=== PATIENT | male | born 1940 | race African-American/Black ===

== ENCOUNTER → 2018-09-26 | Outpatient (CLI) | payer MEDICARE ==
[~2018-09-26] MED LIST: ALBUTEROL2.5 MG/0.5; ASPIRIN325 MG PO; FAMOTIDINE20 MG PO; FUROSEMIDE40 MG PO; HYDROCODON-ACE1 EAC9 PO; K DUR10 MEQ PO; METOPROLOL TART25 MG PO; MINOCYCLINE HC100 M1 PO; PLAVIX75 MG PO; PRAVASTATIN SOD20 MG PO; TYLENOL WITH C1 EACH PO; XARELTO20 MG PO; ZESTRIL20 MG PO
--- NOTE | 2018-09-26 08:10 | Diagnostic Imaging Report ---
EXAMINATION: CHEST 2 VIEWS INDICATION: Dysphagia/cough. COMPARISON: None FINDINGS: TUBES and LINES: Left-sided pacemaker with single lead overlying the right ventricle. LUNGS: Lungs are well inflated. Mild patchy opacities at the right lung base. No evidence of pulmonary edema or lobar consolidation. PLEURA: No pleural effusion or pneumothorax. HEART AND MEDIASTINUM: The cardiomediastinal silhouette is moderately enlarged. BONES AND SOFT TISSUES: No acute osseous abnormality. Status post median sternotomy. UPPER ABDOMEN: No free air under the diaphragm. IMPRESSION: Mild patchy right basilar opacity, likely atelectasis. Pneumonia is possible in the appropriate clinical setting. Followup chest radiograph is suggested in 6-8 weeks to assess for resolution. Moderate cardiomegaly without pulmonary edema. Signed by: Dr. Joel Tracy MD on 09/26/2018 8:06 AM
--- NOTE | 2018-09-26 09:34 | Diagnostic Imaging Report ---
FLUOROSCOPIC BARIUM SWALLOW HISTORY: Dysphagia SURVEY MANAGER: Joel Tracy MD Comparison: Chest radiograph 09/26/2018. Procedure: Double contrast barium swallow was performed using thick and thin oral barium and effervescent crystals. Radiation Exposure: Fluoroscopy Time: 2.8 minute Radiation dose: 124.08 mGy DISCUSSION: Please refer to the same day chest radiograph for details of intrathoracic findings. ESOPHAGUS: Motility: Primarily primary and secondary contractions. Scattered tertiary contractions. Mucosa: There is a small upper esophageal outpouching at C7/T1 that changes configuration on different swallows. No definite ulcer or mass lesion. Distensibility: Normal. GASTROESOPHAGEAL JUNCTION: Small hiatal hernia. GASTROESOPHAGEAL REFLUX: Mild spontaneous gastroesophageal reflux. STOMACH: Normally distensible and demonstrates normal contours and mucosal pattern. DUODENUM/PROXIMAL SMALL BOWEL: Unremarkable. 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 The location is lower than expected for a Zenker diverticulum. An endoscopy is suggested for further evaluation. Small hiatal hernia. Mild spontaneous gastroesophageal reflux. Signed by: Dr. Joel Tracy MD on 09/26/2018 9:31 AM
== END ==
LOC: DX 06:36
PROVIDERS: ATTEND Internal Medicine Interventional Cardiology
DX: R05 Cough (principal); J18.9 Pneumonia, unspecified organism; R13.10 Dysphagia, unspecified
CPT/HCPCS: 71046; 74220

== ENCOUNTER → 2019-04-10 | Outpatient (CLI) | payer MEDICARE ==
--- NOTE | 2019-04-10 15:32 | Diagnostic Imaging Report ---
CT of the chest, without contrast. History: Lung cancer screening, asthma, shortness of breath. Comparison: Chest radiograph from 09/26/2018. Technique: Multidetector CT scanning of the chest was performed from the level of the apices to the upper abdomen without contrast. Coronal and sagittal multiplanar reformations were obtained. RADIATION DOSE: Total DLP: 560.98 mGy*cm Dose modulation, iterative reconstruction, and/or weight based adjustment of the mA/kV was utilized to reduce the radiation dose to as low as reasonably achievable. Findings: The visualized structures within the base of the neck demonstrate no significant abnormalities. There is a pacing device identified within the left chest wall with single transvenous lead extending to the right ventricle. The abdominal aorta is normal in course and caliber with atherosclerotic calcifications within its course and branch vessels including the coronary arteries. The heart is not enlarged. No abnormal pericardial fluid is present. Mild bilateral gynecomastia noted. There is no abnormal axillary, mediastinal, or hilar lymph node enlargement. The trachea and proximal airways are patent. Bandlike opacities noted within the left upper lobe suggestive of atelectasis/scarring. There is mild dependent density present bilaterally. There is no evidence for consolidation, pneumothorax, mass, suspicious nodule, or pleural effusion. Limited views of the upper abdomen demonstrate a partially visualized left adrenal thickening/hyperplasia. Post surgical changes from median sternotomy noted. There are degenerative changes of the visualized spine. The osseous structures demonstrate no evidence for acute fracture or destructive process. IMPRESSION: No acute intrathoracic process identified. Atherosclerosis and coronary artery disease. Signed by: Dr. Hector Rios MD on 04/10/2019 3:29 PM
--- NOTE | 2019-04-17 23:47 | Pulmonary Function Test ---
DATE OF STUDY: 04/10/2019 REFERRING PHYSICIAN: PULMONARY FUNCTION TEST SPIROMETRY: Spirometry demonstrates [id number] restriction. FEV1 was 1.25 L or 52% predicted and FVC was 1.80 L or 51% predicted in the setting of normal FEV1/FVC ratio. After bronchodilator administration, there was no statistically significant change in spirometry. I was unable to perform nitrogen washout method lung volumes nor diffusion capacity nor 6-minute walk distance due to the patient's physical limitations and difficult effort. SUMMARY: [id number] restriction. Consider repeat pulmonary function testing in future if the patient is better able to perform. MD JAKY Barnhart/LATISHA /[id number]
== END ==
LOC: CT 13:07
PROVIDERS: ATTEND Internal Medicine Critical Care Medicine
DX: J30.9 Allergic rhinitis, unspecified (principal); J45.909 Unspecified asthma, uncomplicated; N40.0 Benign prostatic hyperplasia without lower urinary tract symptoms; R60.0 Localized edema; R53.1 Weakness; E87.70 Fluid overload, unspecified; G47.31 Primary central sleep apnea; N62 Hypertrophy of breast; E66.9 Obesity, unspecified; G47.33 Obstructive sleep apnea (adult) (pediatric); K42.9 Umbilical hernia without obstruction or gangrene; Z87.891 Personal history of nicotine dependence
CPT/HCPCS: 71250; 94060; 94640; 94727; 94729

== ENCOUNTER 2019-06-06 10:34 | Inpatient (IN) | payer MEDICARE ==
[~2019-06-06] VITALS: Ht 175.3 cm; Wt 112.7 kg
[2019-06-06] VITALS (9 sets, daily range): BP systolic 99–148; BP diastolic 49–75
--- OUTSIDE RECORDS SUMMARY | 2019-06-06 10:38 | XMS REPORT ---
Author Author [facility] Address Unknown Phone Unavailable Care Team Providers Care Millwright Instructor Name Role Phone Sunshine MCFARLAND Unavailable Unavailable VINOD LAW Unavailable Unavailable Payers Payer Name Policy Type Policy Number Effective Date Expiration Date Problems This patient has no known problems. Allergies, Adverse Reactions, Alerts Allergy Name Allergy Type Status Severity Reaction(s) Onset Date Inactive Date Treating Clinician Comments No Known Allergies DA Active U 2019-04-13 00:00:00 No Known Allergies DA Active U 2018-12-21 00:00:00 No Known Allergies DA Active U 2018-01-02 00:00:00 Medications This patient has no known medications. Results Test Description Test Time Test Comments Text Results Atomic Results Result Comments BASIC METABOLIC PANEL 2019-05-28 11:01:00 SODIUM (test code=NA) 142 mmol/L 136-145 POTASSIUM (test code=K) 4.0 mmol/L 3.5-5.1 CHLORIDE (test code=CL) 107.0 mmol/L 98-107 CARBON DIOXIDE (test code=CO2) 25.0 mmol/L 21-32 ANION GAP (test code=GAP) 14.0 10-20 GLUCOSE (test code=GLU) 137 mg/dL 74-106 BLOOD UREA NITROGEN (test code=BUN) 16 mg/dL 7-18 GLOMERULAR FILTRATION RATE (test code=GFR) > 60 mL/min >=60 Estimated GFR by using Modified MDRD formula.Chronic kidney disease is defined as either kidney damageor GFR <60 mL/min/1.73 m2 for >3 months. CREATININE (test code=CREAT) 1.00 mg/dL 0.7-1.3 BUN/CREATININE RATIO (test code=BUN/CREA) 15.7 10-20 CALCIUM (test code=CA) 9.0 mg/dL 8.5-10.1 BASIC METABOLIC [id number] 10:55:00* Test Item Value Reference Range Comments SODIUM (test code=NA) 142 mmol/L 136-145 POTASSIUM (test code=K) 4.0 mmol/L 3.5-5.1 CHLORIDE (test code=CL) 107.0 mmol/L 98-107 CARBON DIOXIDE (test code=CO2) mmol/L 21-32 ANION GAP (test code=GAP) 10-20 GLUCOSE (test code=GLU) mg/dL 74-106 BLOOD UREA NITROGEN (test code=BUN) mg/dL 7-18 GLOMERULAR FILTRATION RATE (test code=GFR) mL/min >=60 CREATININE (test code=CREAT) mg/dL 0.7-1.3 BUN/CREATININE RATIO (test code=BUN/CREA) 10-20 CALCIUM (test code=CA) mg/dL 8.5-10.1 CBC W/O [id number] 10:26:00* Test Item Value Reference Range Comments WHITE BLOOD CELL (test code=WBC) 5.4 K/mm3 4.5-12.5 RED BLOOD CELL (test code=RBC) 4.16 mill/mm3 4.0-5.8 HEMOGLOBIN (test code=HGB) 11.0 gram/dL 13.0-17.5 HEMATOCRIT (test code=HCT) 36.1 % 42.0-52.0 MEAN CELL VOLUME (test code=MCV) 86.8 fL 80-98 MEAN CELL HGB (test code=MCH) 26.4 picogram 27.0-33.0 MEAN CELL HGB CONCETRATION (test code=MCHC) 30.5 gram/dL 33.0-36.0 RED CELL DISTRIBUTION WIDTH (test code=RDW) 16.0 % 11.6-16.2 PLATELET COUNT (test code=PLT) 168 K/mm3 150-450 MEAN PLATELET VOLUME (test code=MPV) 10.8 fL 6.7-11.0 BASIC METABOLIC [id number] 13:39:00* Test Item Value Reference Range Comments SODIUM (test code=NA) 139 mmol/L 136-145 POTASSIUM (test code=K) 4.2 mmol/L 3.5-5.1 CHLORIDE (test code=CL) 104.0 mmol/L 98-107 CARBON DIOXIDE (test code=CO2) 29.0 mmol/L 21-32 ANION GAP (test code=GAP) 10.2 10-20 GLUCOSE (test code=GLU) 80 mg/dL 74-106 BLOOD UREA NITROGEN (test code=BUN) 16 mg/dL 7-18 GLOMERULAR FILTRATION RATE (test code=GFR) > 60 mL/min >=60 Estimated GFR by using Modified MDRD formula.Chronic kidney disease is defined as either kidney damageor GFR <60 mL/min/1.73 m2 for >3 months. CREATININE (test code=CREAT) 1.10 mg/dL 0.7-1.3 BUN/CREATININE RATIO (test code=BUN/CREA) 14.5 10-20 CALCIUM (test code=CA) 9.4 mg/dL 8.5-10.1 PT IS A HARD STICK NOTIFIED [employer] LimitedLAB.05/26/19 1056 BASIC METABOLIC [id number] 13:31:00* Test Item Value Reference Range Comments SODIUM (test code=NA) 139 mmol/L 136-145 POTASSIUM (test code=K) 4.2 mmol/L 3.5-5.1 CHLORIDE (test code=CL) 104.0 mmol/L 98-107 CARBON DIOXIDE (test code=CO2) mmol/L 21-32 ANION GAP (test code=GAP) 10-20 GLUCOSE (test code=GLU) mg/dL 74-106 BLOOD UREA NITROGEN (test code=BUN) mg/dL 7-18 GLOMERULAR FILTRATION RATE (test code=GFR) mL/min >=60 CREATININE (test code=CREAT) mg/dL 0.7-1.3 BUN/CREATININE RATIO (test code=BUN/CREA) 10-20 CALCIUM (test code=CA) mg/dL 8.5-10.1 PT IS A HARD STICK NOTIFIED [employer].05/26/19 1056 CBC W/O DIFF 2019-05-26 12:49:00* Test Item Value Reference Range Comments WHITE BLOOD CELL (test code=WBC) 5.8 K/mm3 4.5-12.5 RED BLOOD CELL (test code=RBC) 4.78 mill/mm3 4.0-5.8 HEMOGLOBIN (test code=HGB) 12.3 gram/dL 13.0-17.5 HEMATOCRIT (test code=HCT) 41.3 % 42.0-52.0 MEAN CELL VOLUME (test code=MCV) 86.4 fL 80-98 MEAN CELL HGB (test code=MCH) 25.7 picogram 27.0-33.0 MEAN CELL HGB CONCETRATION (test code=MCHC) 29.8 gram/dL 33.0-36.0 RED CELL DISTRIBUTION WIDTH (test code=RDW) 16.0 % 11.6-16.2 PLATELET COUNT (test code=PLT) 214 K/mm3 150-450 MEAN PLATELET VOLUME (test code=MPV) 10.2 fL 6.7-11.0 PT IS A HARD STICK NOTIFIED NURSE [id number] V.LAB.AL05/26/19 1057 BASIC METABOLIC [id number] 10:27:00* Test Item Value Reference Range Comments SODIUM (test code=NA) 140 mmol/L 136-145 POTASSIUM (test code=K) 3.7 mmol/L 3.5-5.1 CHLORIDE (test code=CL) 107.0 mmol/L 98-107 CARBON DIOXIDE (test code=CO2) 27.0 mmol/L 21-32 ANION GAP (test code=GAP) 9.7 10-20 GLUCOSE (test code=GLU) 120 mg/dL 74-106 BLOOD UREA NITROGEN (test code=BUN) 24 mg/dL 7-18 GLOMERULAR FILTRATION RATE (test code=GFR) > 60 mL/min >=60 Estimated GFR by using Modified MDRD formula.Chronic kidney disease is defined as either kidney damageor GFR <60 mL/min/1.73 m2 for >3 months. CREATININE (test code=CREAT) 1.20 mg/dL 0.7-1.3 BUN/CREATININE RATIO (test code=BUN/CREA) 19.7 10-20 CALCIUM (test code=CA) 9.1 mg/dL 8.5-10.1 PT REFUSED RN [id number] V.LAB.KP2 05/23/19 0759 CBC W/AUTO [id number] 09:34:00 * Test Item Value Reference Range Comments WHITE BLOOD CELL (test code=WBC) 5.5 K/mm3 4.5-12.5 RED BLOOD CELL (test code=RBC) 4.75 mill/mm3 4.0-5.8 HEMOGLOBIN (test code=HGB) 12.6 gram/dL 13.0-17.5 HEMATOCRIT (test code=HCT) 39.8 % 42.0-52.0 MEAN CELL VOLUME (test code=MCV) 83.8 fL 80-98 MEAN CELL HGB (test code=MCH) 26.5 picogram 27.0-33.0 MEAN CELL HGB CONCETRATION (test code=MCHC) 31.7 gram/dL 33.0-36.0 RED CELL DISTRIBUTION WIDTH (test code=RDW) 16.3 % 11.6-16.2 RED CELL DISTRIBUTION WIDTH SD (test code=RDW-SD) 49.9 fL 37.0-51.0 PLATELET COUNT (test code=PLT) 205 K/mm3 150-450 MEAN PLATELET VOLUME (test code=MPV) 10.9 fL 6.7-11.0 NEUTROPHIL % (test code=NT%) 58.1 % 39.0-69.0 IMMATURE GRANULOCYTE % (test code=IG%) 0.2 % 0.0-5.0 LYMPHOCYTE % (test code=LY%) 28.4 % 25.0-55.0 MONOCYTE % (test code=MO%) 10.1 % 0.0-10.0 EOSINOPHIL % (test code=EO%) 2.7 % 0.0-5.0 BASOPHIL % (test code=BA%) 0.5 % 0.0-1.0 NUCLEATED RBC % (test code=NRBC%) 0.0 % 0-0 NEUTROPHIL # (test code=NT#) 3.20 K/mm3 1.8-7.7 IMMATURE GRANULOCYTE # (test code=IG#) 0.01 x10 3/uL 0-0.03 LYMPHOCYTE # (test code=LY#) 1.57 K/mm3 1.0-5.0 MONOCYTE # (test code=MO#) 0.56 K/mm3 0-0.8 EOSINOPHIL # (test code=EO#) 0.15 K/mm3 0.0-0.5 BASOPHIL # (test code=BA#) 0.03 K/mm3 0.0-0.2 NUCLEATED RBC # (test code=NRBC#) 0.00 K/mm3 0.0-0.1 MANUAL DIFF REQUIRED (test code=YENNY) NO PT REFUSED RN [id number] V.LAB.KP2 05/23/19 0759 - CT ABD PELVIS W/O [id number] 12:00:00 Name: AB LANGSTON [facility] : 1940 Age/S: 79 / M [address] [facility] Unit #: [id number] Loc: [place] [address] Phys: Hussein Gaffney MD Acct: [id number] Dis Date: Status: ADM IN PHONE #: [phone] Exam Date: 05/22/2019 1125 FAX #: [phone] Reason: PAIN EXAMS: CPT CODE: [id number] CT ABD PELVIS W/O CONT 22433 REASON FOR EXAM: PAIN EXAM ORDER DATE: 05/22/2019 11:16 AM Ordering M.D.: Hussein George MD PROCEDURE: - CT ABD PELVIS W/O CONT noncontrast axial CT images were acquired through the abdomen/pelvis at 5 mm intervals. Sagittal and coronal reformatted images were generated. Automated exposure control was utilized for this reduction. Phases of contrast: None COMPARISON: CT abdomen and pelvis December 22, 2018 FINDINGS: The absence of IV contrast limits sensitivity of this exam for the detection of soft tissue pathology Visualized thorax: There is subsegmental atelectasis in the left lung base. Cardiomegaly. ICD lead terminates in the right ventricle. Hepatobiliary system: Liver parenchyma appears to be grossly within normal limits. There is mild stranding of the pericholecystic fat seen on coronal imaging (601/73). Pancreas: Grossly normal Spleen: Grossly normal Adrenal glands: Grossly normal Genitourinary system: There are cystic appearing lesions in the bilateral kidneys. Urinary bladder is decompressed by Jackson catheter. Prostate gland is enlarged. Gastrointestinal tract and appendix: There is diverticular disease throughout the colon that is most pronounced in the descending and sigmoid colon. The appendix and small bowel and stomach are within normal limits. A short segment of the small bowel herniates through a defect in the umbilicus. No findings to suggest bowel obstruction. Abdominal vascular structures: Atherosclerotic disease is seen throughout the abdom inal aorta and iliac arteries PAGE 1 Signed Report (CONTINUED) Name: AB LANGSTON [facility] : 1940 Age/S: 79 / M [address] Unit #: [id number] Loc: [place] [address] Phys: Hussein Gaffney MD Acct: [id number] Dis Date: Status: ADM IN PHONE #: [phone] Exam Date: 05/22/2019 1125 FAX #: [phone] Reason: PAIN EXAMS: CPT CODE: [id number] CT ABD PELVIS W/O CONT 55758 < Continued> Peritoneum and retroperitoneum: No free fluid or free air. No omental or mesenteric masses. There is an area of slightly increased mesenteric attenuation ( through ) with subcentimeter lymph nodes which may represent a prior episode of sclerosing mesenteritis. Musculoskeletal structures and abdominal wall: Prior sternotomy. Severe degenerative changes are seen throughout the visualized spine. Fat-containing ventral hernia in the epigastrium. There is also an umbilical hernia containing a short segment of small bowel. No inflammatory changes are seen in either hernia sac. Patient has diastasis recti. There are postsurgical changes in the right inguinal region which may be from a femoral arterial bypass. IMPRESSION: Severe prostatomegaly. Stranding of the pericholecystic fat seen on coronal imaging. Correlate clinically for cholecystitis. Cysts in the bilateral kidneys. Further characteristic is limited by the absence of IV contrast. These can be further assessed for the presence of internal nodules and/or septations with a contrast-enhanced study or a renal ultrasound. Colonic diverticulosis without evidence of diverticulitis. Findings of prior sclerosing mesenteritis. at 1200 Reported and signed by: Zach Nguyen MD CC: Hussein Gaffney Technologist:Kobe Jarquin RT(R)(CT) CTDI: DLP: Trnscb Date/Time: 05/22/2019 (1200) [id number] Orig Print D/T: S: 05/22/2019 (3185) PAGE 2 Signed Report BASIC METABOLIC [id number] 08:20:00* Test Item Value Reference Range Comments SODIUM (test code=NA) 143 mmol/L 136-145 POTASSIUM (test code=K) 4.0 mmol/L 3.5-5.1 CHLORIDE (test code=CL) 113.0 mmol/L 98-107 CARBON DIOXIDE (test code=CO2) 25.0 mmol/L 21-32 ANION GAP (test code=GAP) 9.0 10-20 GLUCOSE (test code=GLU) 93 mg/dL 74-106 BLOOD UREA NITROGEN (test code=BUN) 37 mg/dL 7-18 GLOMERULAR FILTRATION RATE (test code=GFR) 55 mL/min >=60 Estimated GFR by using Modified MDRD formula.Chronic kidney disease is defined as either kidney damageor GFR <60 mL/min/1.73 m2 for >3 months. CREATININE (test code=CREAT) 1.50 mg/dL 0.7-1.3 BUN/CREATININE RATIO (test code=BUN/CREA) 24.5 10-20 CALCIUM (test code=CA) 9.3 mg/dL 8.5-10.1 HEPATIC FUNCTION [id number] 08:20:00* Test Item Value Reference Range Comments TOTAL PROTEIN (test code=PROT) 7.1 gram/dL 6.4-8.2 ALBUMIN (test code=ALB) 3.9 g/dL 3.4-5.0 GLOBULIN (test code=GLOB) 3.2 gram/dL 2.7-4.2 ALBUMIN/GLOBULIN RATIO (test code=A/G) 1.2 0.75-1.50 BILIRUBIN TOTAL (test code=BILT) 0.80 mg/dL 0.0-1.0 BILIRUBIN DIRECT (test code=BILD) 0.27 mg/dL 0.0-0.20 SGOT/AST (test code=AST) 15 IUnit/L 15-37 SGPT/ALT (test code=ALT) 23 IUnit/L 12-78 ALKALINE PHOSPHATASE TOTAL (test code=ALKP) 114 IUnit/L 45-117 Note change in reference range due to change in reagent. [id number] 08:20:00* Test Item Value Reference Range Comments LIPASE (test code=LIP) 204 U/L 73.0-393.0 BASIC METABOLIC [id number] 08:10:00* Test Item Value Reference Range Comments SODIUM (test code=NA) 143 mmol/L 136-145 POTASSIUM (test code=K) 4.0 mmol/L 3.5-5.1 CHLORIDE (test code=CL) 113.0 mmol/L 98-107 CARBON DIOXIDE (test code=CO2) mmol/L 21-32 ANION GAP (test code=GAP) 10-20 GLUCOSE (test code=GLU) mg/dL 74-106 BLOOD UREA NITROGEN (test code=BUN) mg/dL 7-18 GLOMERULAR FILTRATION RATE (test code=GFR) mL/min >=60 CREATININE (test code=CREAT) mg/dL 0.7-1.3 BUN/CREATININE RATIO (test code=BUN/CREA) 10-20 CALCIUM (test code=CA) mg/dL 8.5-10.1 HEPATIC FUNCTION [id number] 08:10:00* Test Item Value Reference Range Comments TOTAL PROTEIN (test code=PROT) gram/dL 6.4-8.2 ALBUMIN (test code=ALB) g/dL 3.4-5.0 GLOBULIN (test code=GLOB) gram/dL 2.7-4.2 ALBUMIN/GLOBULIN RATIO (test code=A/G) 0.75-1.50 BILIRUBIN TOTAL (test code=BILT) mg/dL 0.0-1.0 BILIRUBIN DIRECT (test code=BILD) mg/dL 0.0-0.20 SGOT/AST (test code=AST) IUnit/L 15-37 SGPT/ALT (test code=ALT) IUnit/L 12-78 ALKALINE PHOSPHATASE TOTAL (test code=ALKP) IUnit/L 45-117 [id number] 08:10:00* Test Item Value Reference Range Comments LIPASE (test code=LIP) U/L 73.0-393.0 URINALYSIS [id number] 08:06:00* Test Item Value Reference Range Comments UA COLOR (test code=COLU) Light-Filley YELLOW UA APPEARANCE (test code=APPU) TURBID CLEAR UA GLUCOSE DIPSTICK (test code=DGLUU) NEGATIVE mg/dL NEGATIVE UA BILIRUBIN DIPSTICK (test code=BILU) NEGATIVE mg/dL NEGATIVE UA KETONE DIPSTICK (test code=KETU) NEGATIVE mg/dL NEGATIVE UA SPECIFIC GRAVITY (test code=SGU) 1.019 1.001-1.035 UA BLOOD DIPSTICK (test code=BELEN) >1.0 mg/dL NEGATIVE UA PH DIPSTICK (test code=LUCITA) 5.0 5.0-8.0 UA PROTEIN DIPSTICK (test code=PROU) 70 (1+) mg/dL NEGATIVE UA UROBILINIOGEN DIPSTICK (test code=URO) Normal mg/dL NEGATIVE UA NITRITE DIPSTICK (test code=EDWARD) NEGATIVE NEGATIVE UA LEUKOCYTE ESTERASE W REFLEX (test code=LEUUR) 500 Britton/uL (3+) Britton/uL NEGATIVE UA WBC (test code=WBCU) >200 per HPF 0-5 UA RBC (test code=RBCU) >200 #/HPF 0-5 UA WBC CLUMPS (test code=WBCUCL) >10 /HPF NONE UA EPITHELIAL CELLS (test code=EPIU) FEW per HPF FEW UA BACTERIA (test code=BACU) FEW #/HPF NONE UA MUCUS (test code=MUCU) FEW #/LPF FEW Urine Source? Clean CatchCBC W/O [id number] 07:53:00* Test Item Value Reference Range Comments WHITE BLOOD CELL (test code=WBC) 5.4 K/mm3 4.5-12.5 RED BLOOD CELL (test code=RBC) 4.34 mill/mm3 4.0-5.8 HEMOGLOBIN (test code=HGB) 11.4 gram/dL 13.0-17.5 HEMATOCRIT (test code=HCT) 36.9 % 42.0-52.0 MEAN CELL VOLUME (test code=MCV) 85.0 fL 80-98 MEAN CELL HGB (test code=MCH) 26.3 picogram 27.0-33.0 MEAN CELL HGB CONCETRATION (test code=MCHC) 30.9 gram/dL 33.0-36.0 RED CELL DISTRIBUTION WIDTH (test code=RDW) 15.9 % 11.6-16.2 PLATELET COUNT (test code=PLT) 196 K/mm3 150-450 MEAN PLATELET VOLUME (test code=MPV) 10.2 fL 6.7-11.0 CT CHEST [id number] 15:21:00 [place] [address] Patient Name: AB LANGSTON MR #: [id number] : 1940 Age/Sex: 78/M Req #: [id number] Adm Physician: Ordered by: NNEKA MCFARLAND MD Report #: [id number] Location: CT Room/Bed: Procedure: [id number] CT/ CT CHEST WO Exam Date: 04/10/19 Exam Time: 1455 REPORT STATUS: Signed CT of the ches t, without contrast. History: Lung cancer screening, asthma, shortne ss of breath. Comparison: Chest radiograph from 09/26/2018. Technique: Multidetector CT scanning of the chest was performed from the level of the api madie to the upper abdomen without contrast. Coronal and sagittal multiplanar r eformations were obtained. RADIATION DOSE: Total DLP: 560.98 mGy*cm Dose modulation, iterative reconstruction, and/or weight based adjustment of the mA/kV was utilized to reduce the radiation dose to as low as reasonably achievable. Findings: The visualized structures within the base of the neck demonstrate no significant abnormalities. There is a pacing device identified within the left chest wall with single transvenous lead extending to the right ventricle. The abdominal aorta is normal in course and caliber w ith atherosclerotic calcifications within its course and branch vessels includ ing the coronary arteries. The heart is not enlarged. No abnormal pericardial fluid is present. Mild bilateral gynecomastia noted. There is no abnormal axillary, mediastinal, or hilar lymph node enlargement. The trachea and pr oximal airways are patent. Bandlike opacities noted within the left upper lobe suggestive of atelectasis/scarring. There is mild dependent density present b ilaterally. There is no evidence for consolidation, pneumothorax, mass, suspic ious nodule, or pleural effusion. Limited views of the upper abdomen demons trate a partially visualized left adrenal thickening/hyperplasia. Post vides rgical changes from median sternotomy noted. There are degenerative changes of the visualized spine. The osseous structures demonstrate no evidence for acute fracture or destructive process. IMPRESSION: No acute intrathoracic process identified. Atherosclerosis and coronary artery disease. Si gned by: Dr. Hector Rios MD on 04/10/2019 3:29 PM Dictated By: HECTOR CHANEY MD 28 Transcribed B y: ALICIA on 04/10/191528 COPY TO: NNEKA MCFARLAND MD, ABIM BASIC METABOLIC [id number] 06:17:00* Test Item Value Reference Range Comments SODIUM (test code=NA) 140 mmol/L 136-145 POTASSIUM (test code=K) 3.1 mmol/L 3.5-5.1 CHLORIDE (test code=CL) 102.0 mmol/L 98-107 CARBON DIOXIDE (test code=CO2) 32.0 mmol/L 21-32 ANION GAP (test code=GAP) 9.1 10-20 GLUCOSE (test code=GLU) 94 mg/dL 74-106 BLOOD UREA NITROGEN (test code=BUN) 14 mg/dL 7-18 GLOMERULAR FILTRATION RATE (test code=GFR) > 60 mL/min >=60 Estimated GFR by using Modified MDRD formula.Chronic kidney disease is defined as either kidney damageor GFR <60 mL/min/1.73 m2 for >3 months. CREATININE (test code=CREAT) 0.80 mg/dL 0.7-1.3 BUN/CREATININE RATIO (test code=BUN/CREA) 17.5 10-20 CALCIUM (test code=CA) 8.4 mg/dL 8.5-10.1 [id number] 06:17:00* Test Item Value Reference Range Comments MAGNESIUM (test code=MAG) 1.2 mg/dL 1.8-2.4 BASIC METABOLIC [id number] 13:46:00* Test Item Value Reference Range Comments SODIUM (test code=NA) 140 mmol/L 136-145 POTASSIUM (test code=K) 3.5 mmol/L 3.5-5.1 CHLORIDE (test code=CL) 104.0 mmol/L 98-107 CARBON DIOXIDE (test code=CO2) 30.0 mmol/L 21-32 ANION GAP (test code=GAP) 9.5 10-20 GLUCOSE (test code=GLU) 100 mg/dL 74-106 BLOOD UREA NITROGEN (test code=BUN) 30 mg/dL 7-18 GLOMERULAR FILTRATION RATE (test code=GFR) > 60 mL/min >=60 Estimated GFR by using Modified MDRD formula.Chronic kidney disease is defined as either kidney damageor GFR <60 mL/min/1.73 m2 for >3 months. CREATININE (test code=CREAT) 0.90 mg/dL 0.7-1.3 BUN/CREATININE RATIO (test code=BUN/CREA) 33.3 10-20 CALCIUM (test code=CA) 8.5 mg/dL 8.5-10.1 BASIC METABOLIC [id number] 13:40:00* Test Item Value Reference Range Comments SODIUM (test code=NA) 140 mmol/L 136-145 POTASSIUM (test code=K) 3.5 mmol/L 3.5-5.1 CHLORIDE (test code=CL) 104.0 mmol/L 98-107 CARBON DIOXIDE (test code=CO2) mmol/L 21-32 ANION GAP (test code=GAP) 10-20 GLUCOSE (test code=GLU) mg/dL 74-106 BLOOD UREA NITROGEN (test code=BUN) mg/dL 7-18 GLOMERULAR FILTRATION RATE (test code=GFR) mL/min >=60 CREATININE (test code=CREAT) mg/dL 0.7-1.3 BUN/CREATININE RATIO (test code=BUN/CREA) 10-20 CALCIUM (test code=CA) mg/dL 8.5-10.1 CBC W/O [id number] 13:15:00* Test Item Value Reference Range Comments WHITE BLOOD CELL (test code=WBC) 15.4 K/mm3 4.5-12.5 RED BLOOD CELL (test code=RBC) 4.36 mill/mm3 4.0-5.8 HEMOGLOBIN (test code=HGB) 11.5 gram/dL 13.0-17.5 HEMATOCRIT (test code=HCT) 36.2 % 42.0-52.0 MEAN CELL VOLUME (test code=MCV) 83.0 fL 80-98 MEAN CELL HGB (test code=MCH) 26.4 picogram 27.0-33.0 MEAN CELL HGB CONCETRATION (test code=MCHC) 31.8 gram/dL 33.0-36.0 RED CELL DISTRIBUTION WIDTH (test code=RDW) 16.0 % 11.6-16.2 PLATELET COUNT (test code=PLT) 251 K/mm3 150-450 MEAN PLATELET VOLUME (test code=MPV) 10.2 fL 6.7-11.0 BASIC METABOLIC [id number] 05:08:00* Test Item Value Reference Range Comments SODIUM (test code=NA) 139 mmol/L 136-145 POTASSIUM (test code=K) 3.4 mmol/L 3.5-5.1 CHLORIDE (test code=CL) 104.0 mmol/L 98-107 CARBON DIOXIDE (test code=CO2) 28.0 mmol/L 21-32 ANION GAP (test code=GAP) 10.4 10-20 GLUCOSE (test code=GLU) 223 mg/dL 74-106 BLOOD UREA NITROGEN (test code=BUN) 40 mg/dL 7-18 RESULT VERIFIED BY REPEAT ANALYSIS GLOMERULAR FILTRATION RATE (test code=GFR) 55 mL/min >=60 Estimated GFR by using Modified MDRD formula.Chronic kidney disease is defined as either kidney damageor GFR <60 mL/min/1.73 m2 for >3 months. CREATININE (test code=CREAT) 1.50 mg/dL 0.7-1.3 BUN/CREATININE RATIO (test code=BUN/CREA) 26.7 10-20 CALCIUM (test code=CA) 8.3 mg/dL 8.5-10.1 [id number] 05:08:00* Test Item Value Reference Range Comments PHOSPHORUS (test code=PHOS) 3.0 mg/dL 2.5-4.9 [id number] 05:08:00* Test Item Value Reference Range Comments MAGNESIUM (test code=MAG) 2.0 mg/dL 1.8-2.4 BASIC METABOLIC [id number] 04:59:00* Test Item Value Reference Range Comments SODIUM (test code=NA) 139 mmol/L 136-145 POTASSIUM (test code=K) 3.4 mmol/L 3.5-5.1 CHLORIDE (test code=CL) 104.0 mmol/L 98-107 CARBON DIOXIDE (test code=CO2) mmol/L 21-32 ANION GAP (test code=GAP) 10-20 GLUCOSE (test code=GLU) mg/dL 74-106 BLOOD UREA NITROGEN (test code=BUN) mg/dL 7-18 GLOMERULAR FILTRATION RATE (test code=GFR) mL/min >=60 CREATININE (test code=CREAT) mg/dL 0.7-1.3 BUN/CREATININE RATIO (test code=BUN/CREA) 10-20 CALCIUM (test code=CA) mg/dL 8.5-10.1 [id number] 04:59:00* Test Item Value Reference Range Comments PHOSPHORUS (test code=PHOS) mg/dL 2.5-4.9 [id number] 04:59:00* Test Item Value Reference Range Comments MAGNESIUM (test code=MAG) mg/dL 1.8-2.4 CBC W/O [id number] 04:55:00* Test Item Value Reference Range Comments WHITE BLOOD CELL (test code=WBC) 18.5 K/mm3 4.5-12.5 RED BLOOD CELL (test code=RBC) 4.21 mill/mm3 4.0-5.8 HEMOGLOBIN (test code=HGB) 11.1 gram/dL 13.0-17.5 HEMATOCRIT (test code=HCT) 34.2 % 42.0-52.0 MEAN CELL VOLUME (test code=MCV) 81.2 fL 80-98 RESULT VERIFIED BY REPEAT ANALYSIS MEAN CELL HGB (test code=MCH) 26.4 picogram 27.0-33.0 MEAN CELL HGB CONCETRATION (test code=MCHC) 32.5 gram/dL 33.0-36.0 RED CELL DISTRIBUTION WIDTH (test code=RDW) 15.6 % 11.6-16.2 PLATELET COUNT (test code=PLT) 243 K/mm3 150-450 MEAN PLATELET VOLUME (test code=MPV) 10.4 fL 6.7-11.0 BASIC METABOLIC [id number] 06:33:00* Test Item Value Reference Range Comments SODIUM (test code=NA) 140 mmol/L 136-145 POTASSIUM (test code=K) 3.2 mmol/L 3.5-5.1 CHLORIDE (test code=CL) 106.0 mmol/L 98-107 CARBON DIOXIDE (test code=CO2) 22.0 mmol/L 21-32 ANION GAP (test code=GAP) 15.2 10-20 GLUCOSE (test code=GLU) 158 mg/dL 74-106 BLOOD UREA NITROGEN (test code=BUN) 52 mg/dL 7-18 GLOMERULAR FILTRATION RATE (test code=GFR) 35 mL/min >=60 Estimated GFR by using Modified MDRD formula.Chronic kidney disease is defined as either kidney damageor GFR <60 mL/min/1.73 m2 for >3 months. CREATININE (test code=CREAT) 2.20 mg/dL 0.7-1.3 BUN/CREATININE RATIO (test code=BUN/CREA) 23.6 10-20 CALCIUM (test code=CA) 8.6 mg/dL 8.5-10.1 BASIC METABOLIC [id number] 06:18:00* Test Item Value Reference Range Comments SODIUM (test code=NA) 140 mmol/L 136-145 POTASSIUM (test code=K) 3.2 mmol/L 3.5-5.1 CHLORIDE (test code=CL) 106.0 mmol/L 98-107 CARBON DIOXIDE (test code=CO2) mmol/L 21-32 ANION GAP (test code=GAP) 10-20 GLUCOSE (test code=GLU) mg/dL 74-106 BLOOD UREA NITROGEN (test code=BUN) mg/dL 7-18 GLOMERULAR FILTRATION RATE (test code=GFR) mL/min >=60 CREATININE (test code=CREAT) mg/dL 0.7-1.3 BUN/CREATININE RATIO (test code=BUN/CREA) 10-20 CALCIUM (test code=CA) mg/dL 8.5-10.1 CBC W/O [id number] 05:55:00* Test Item Value Reference Range Comments WHITE BLOOD CELL (test code=WBC) 14.7 K/mm3 4.5-12.5 RED BLOOD CELL (test code=RBC) 4.51 mill/mm3 4.0-5.8 HEMOGLOBIN (test code=HGB) 11.9 gram/dL 13.0-17.5 HEMATOCRIT (test code=HCT) 39.7 % 42.0-52.0 MEAN CELL VOLUME (test code=MCV) 88.0 fL 80-98 RESULT VERIFIED BY REPEAT ANALYSIS MEAN CELL HGB (test code=MCH) 26.4 picogram 27.0-33.0 MEAN CELL HGB CONCETRATION (test code=MCHC) 30.0 gram/dL 33.0-36.0 RED CELL DISTRIBUTION WIDTH (test code=RDW) 16.0 % 11.6-16.2 PLATELET COUNT (test code=PLT) 199 K/mm3 150-450 RESULT VERIFIED BY REPEAT ANALYSIS MEAN PLATELET VOLUME (test code=MPV) 10.1 fL 6.7-11.0 CBC W/O [id number] 12:13:00* Test Item Value Reference Range Comments WHITE BLOOD CELL (test code=WBC) 20.8 K/mm3 4.5-12.5 RED BLOOD CELL (test code=RBC) 4.88 mill/mm3 4.0-5.8 HEMOGLOBIN (test code=HGB) 12.8 gram/dL 13.0-17.5 HEMATOCRIT (test code=HCT) 39.7 % 42.0-52.0 MEAN CELL VOLUME (test code=MCV) 81.4 fL 80-98 MEAN CELL HGB (test code=MCH) 26.2 picogram 27.0-33.0 MEAN CELL HGB CONCETRATION (test code=MCHC) 32.2 gram/dL 33.0-36.0 RED CELL DISTRIBUTION WIDTH (test code=RDW) 15.5 % 11.6-16.2 PLATELET COUNT (test code=PLT) 251 K/mm3 150-450 MEAN PLATELET VOLUME (test code=MPV) 10.5 fL 6.7-11.0 BASIC METABOLIC [id number] 12:09:00* Test Item Value Reference Range Comments SODIUM (test code=NA) 136 mmol/L 136-145 POTASSIUM (test code=K) 3.1 mmol/L 3.5-5.1 CHLORIDE (test code=CL) 102.0 mmol/L 98-107 CARBON DIOXIDE (test code=CO2) 20.0 mmol/L 21-32 ANION GAP (test code=GAP) 17.1 10-20 GLUCOSE (test code=GLU) 190 mg/dL 74-106 BLOOD UREA NITROGEN (test code=BUN) 47 mg/dL 7-18 GLOMERULAR FILTRATION RATE (test code=GFR) 27 mL/min >=60 Estimated GFR by using Modified MDRD formula.Chronic kidney disease is defined as either kidney damageor GFR <60 mL/min/1.73 m2 for >3 months. CREATININE (test code=CREAT) 2.80 mg/dL 0.7-1.3 BUN/CREATININE RATIO (test code=BUN/CREA) 16.8 10-20 CALCIUM (test code=CA) 8.7 mg/dL 8.5-10.1 CBC W/MANUAL [id number] 06:28:00* Test Item Value Reference Range Comments WHITE BLOOD CELL (test code=WBC) 17.0 K/mm3 4.5-12.5 RED BLOOD CELL (test code=RBC) 5.01 mill/mm3 4.0-5.8 HEMOGLOBIN (test code=HGB) 13.1 gram/dL 13.0-17.5 HEMATOCRIT (test code=HCT) 41.4 % 42.0-52.0 MEAN CELL VOLUME (test code=MCV) 82.6 fL 80-98 MEAN CELL HGB (test code=MCH) 26.1 picogram 27.0-33.0 MEAN CELL HGB CONCETRATION (test code=MCHC) 31.6 gram/dL 33.0-36.0 RED CELL DISTRIBUTION WIDTH (test code=RDW) 15.1 % 11.6-16.2 RED CELL DISTRIBUTION WIDTH SD (test code=RDW-SD) 46.0 fL 37.0-51.0 PLATELET COUNT (test code=PLT) 205 K/mm3 150-450 MEAN PLATELET VOLUME (test code=MPV) 10.6 fL 6.7-11.0 IMMATURE GRANULOCYTE % (test code=IG%) 1.0 % 0.0-5.0 NUCLEATED RBC % (test code=NRBC%) 0.0 % 0-0 NEUTROPHIL # (test code=NT#) 15.25 K/mm3 1.8-7.7 IMMATURE GRANULOCYTE # (test code=IG#) 0.17 x10 3/uL 0-0.03 LYMPHOCYTE # (test code=LY#) 0.92 K/mm3 1.0-5.0 MONOCYTE # (test code=MO#) 0.67 K/mm3 0-0.8 EOSINOPHIL # (test code=EO#) 0.00 K/mm3 0.0-0.5 BASOPHIL # (test code=BA#) 0.02 K/mm3 0.0-0.2 NUCLEATED RBC # (test code=NRBC#) 0.00 K/mm3 0.0-0.1 MANUAL DIFF REQUIRED (test code=MDIFF) YES STAIN ACCEPTABILITY (test code=STN ACCEPTABLE) STAIN ACCEPTABLE TOTAL CELLS COUNTED (test code=TCC) 115 #CELLS SEGMENTED NEUTROPHILS (test code=SEG) 88.7 % 39-69 BAND NEUTROPHIL (test code=BAND) 7.8 % 0-10 LYMPHOCYTE (test code=LYMPH) 2.6 % 25-55 REACTIVE LYMPH (test code=RELYMPH) 0 % MONOCYTE (test code=MON) 0.9 % 0-10 EOSINOPHIL (test code=EOS) 0 % 0.0-5.0 BASOPHIL (test code=BASO) 0 % 0-1.0 METAMYELOCYTE (test code=META) 0 % 0-0 MYELOCYTE (test code=MYELO) 0 % 0.0-0.0 PROMYELOCYTE (test code=PROM) 0 % 0-0 POIKILOCYTOSIS (test code=POIK) 3+ ANISOCYTOSIS (test code=ANISO) 1+ MACROCYTOSIS (test code=MACR) 1+ PLATELET ESTIMATE (test code=PLTEST) ADEQUATE PLATELET MORPHOLOGY (test code=PLTMORPH) SIZE VARIABLE IMMATURE FORMS (test code=IMMAT) 0 % 0-0 BASIC METABOLIC [id number] 05:58:00* Test Item Value Reference Range Comments SODIUM (test code=NA) 138 mmol/L 136-145 POTASSIUM (test code=K) 3.2 mmol/L 3.5-5.1 CHLORIDE (test code=CL) 101.0 mmol/L 98-107 CARBON DIOXIDE (test code=CO2) 28.0 mmol/L 21-32 ANION GAP (test code=GAP) 12.2 10-20 GLUCOSE (test code=GLU) 285 mg/dL 74-106 BLOOD UREA NITROGEN (test code=BUN) 21 mg/dL 7-18 GLOMERULAR FILTRATION RATE (test code=GFR) 60 mL/min >=60 Estimated GFR by using Modified MDRD formula.Chronic kidney disease is defined as either kidney damageor GFR <60 mL/min/1.73 m2 for >3 months. CREATININE (test code=CREAT) 1.40 mg/dL 0.7-1.3 BUN/CREATININE RATIO (test code=BUN/CREA) 15.0 10-20 CALCIUM (test code=CA) 9.4 mg/dL 8.5-10.1 [id number] 05:58:00* Test Item Value Reference Range Comments PHOSPHORUS (test code=PHOS) 1.8 mg/dL 2.5-4.9 BASIC METABOLIC [id number] 05:50:00* Test Item Value Reference Range Comments SODIUM (test code=NA) 138 mmol/L 136-145 POTASSIUM (test code=K) 3.2 mmol/L 3.5-5.1 CHLORIDE (test code=CL) 101.0 mmol/L 98-107 CARBON DIOXIDE (test code=CO2) mmol/L 21-32 ANION GAP (test code=GAP) 10-20 GLUCOSE (test code=GLU) mg/dL 74-106 BLOOD UREA NITROGEN (test code=BUN) mg/dL 7-18 GLOMERULAR FILTRATION RATE (test code=GFR) mL/min >=60 CREATININE (test code=CREAT) mg/dL 0.7-1.3 BUN/CREATININE RATIO (test code=BUN/CREA) 10-20 CALCIUM (test code=CA) mg/dL 8.5-10.1 [id number] 05:50:00* Test Item Value Reference Range Comments PHOSPHORUS (test code=PHOS) mg/dL 2.5-4.9 CBC W/MANUAL [id number] 05:38:00* Test Item Value Reference Range Comments WHITE BLOOD CELL (test code=WBC) 17.0 K/mm3 4.5-12.5 RED BLOOD CELL (test code=RBC) 5.01 mill/mm3 4.0-5.8 HEMOGLOBIN (test code=HGB) 13.1 gram/dL 13.0-17.5 HEMATOCRIT (test code=HCT) 41.4 % 42.0-52.0 MEAN CELL VOLUME (test code=MCV) 82.6 fL 80-98 MEAN CELL HGB (test code=MCH) 26.1 picogram 27.0-33.0 MEAN CELL HGB CONCETRATION (test code=MCHC) 31.6 gram/dL 33.0-36.0 RED CELL DISTRIBUTION WIDTH (test code=RDW) 15.1 % 11.6-16.2 RED CELL DISTRIBUTION WIDTH SD (test code=RDW-SD) 46.0 fL 37.0-51.0 PLATELET COUNT (test code=PLT) 205 K/mm3 150-450 MEAN PLATELET VOLUME (test code=MPV) 10.6 fL 6.7-11.0 IMMATURE GRANULOCYTE % (test code=IG%) 1.0 % 0.0-5.0 NUCLEATED RBC % (test code=NRBC%) 0.0 % 0-0 NEUTROPHIL # (test code=NT#) 15.25 K/mm3 1.8-7.7 IMMATURE GRANULOCYTE # (test code=IG#) 0.17 x10 3/uL 0-0.03 LYMPHOCYTE # (test code=LY#) 0.92 K/mm3 1.0-5.0 MONOCYTE # (test code=MO#) 0.67 K/mm3 0-0.8 EOSINOPHIL # (test code=EO#) 0.00 K/mm3 0.0-0.5 BASOPHIL # (test code=BA#) 0.02 K/mm3 0.0-0.2 NUCLEATED RBC # (test code=NRBC#) 0.00 K/mm3 0.0-0.1 MANUAL DIFF REQUIRED (test code=MDIFF) YES STAIN ACCEPTABILITY (test code=STN ACCEPTABLE) TOTAL CELLS COUNTED (test code=TCC) #CELLS SEGMENTED NEUTROPHILS (test code=SEG) % 39-69 LYMPHOCYTE (test code=LYMPH) % 25-55 MONOCYTE (test code=MON) % 0-10 EOSINOPHIL (test code=EOS) % 0.0-5.0 CABOT RINGS (test code=CAB) MORPHOLOGY COMMENT (test code=MOC) PLATELET ESTIMATE (test code=PLTEST) PLATELET MORPHOLOGY (test code=PLTMORPH) CBC W/MANUAL [id number] 05:38:00* Test Item Value Reference Range Comments WHITE BLOOD CELL (test code=WBC) 17.0 K/mm3 4.5-12.5 RED BLOOD CELL (test code=RBC) 5.01 mill/mm3 4.0-5.8 HEMOGLOBIN (test code=HGB) 13.1 gram/dL 13.0-17.5 HEMATOCRIT (test code=HCT) 41.4 % 42.0-52.0 MEAN CELL VOLUME (test code=MCV) 82.6 fL 80-98 MEAN CELL HGB (test code=MCH) 26.1 picogram 27.0-33.0 MEAN CELL HGB CONCETRATION (test code=MCHC) 31.6 gram/dL 33.0-36.0 RED CELL DISTRIBUTION WIDTH (test code=RDW) 15.1 % 11.6-16.2 RED CELL DISTRIBUTION WIDTH SD (test code=RDW-SD) 46.0 fL 37.0-51.0 PLATELET COUNT (test code=PLT) 205 K/mm3 150-450 MEAN PLATELET VOLUME (test code=MPV) 10.6 fL 6.7-11.0 IMMATURE GRANULOCYTE % (test code=IG%) 1.0 % 0.0-5.0 NUCLEATED RBC % (test code=NRBC%) 0.0 % 0-0 NEUTROPHIL # (test code=NT#) 15.25 K/mm3 1.8-7.7 IMMATURE GRANULOCYTE # (test code=IG#) 0.17 x10 3/uL 0-0.03 LYMPHOCYTE # (test code=LY#) 0.92 K/mm3 1.0-5.0 MONOCYTE # (test code=MO#) 0.67 K/mm3 0-0.8 EOSINOPHIL # (test code=EO#) 0.00 K/mm3 0.0-0.5 BASOPHIL # (test code=BA#) 0.02 K/mm3 0.0-0.2 NUCLEATED RBC # (test code=NRBC#) 0.00 K/mm3 0.0-0.1 MANUAL DIFF REQUIRED (test code=MDIFF) YES STAIN ACCEPTABILITY (test code=STN ACCEPTABLE) TOTAL CELLS COUNTED (test code=TCC) #CELLS SEGMENTED NEUTROPHILS (test code=SEG) % 39-69 LYMPHOCYTE (test code=LYMPH) % 25-55 MONOCYTE (test code=MON) % 0-10 EOSINOPHIL (test code=EOS) % 0.0-5.0 MORPHOLOGY COMMENT (test code=MOC) PLATELET ESTIMATE (test code=PLTEST) PLATELET MORPHOLOGY (test code=PLTMORPH) CBC W/MANUAL [id number] 05:38:00* Test Item Value Reference Range Comments WHITE BLOOD CELL (test code=WBC) 17.0 K/mm3 4.5-12.5 RED BLOOD CELL (test code=RBC) 5.01 mill/mm3 4.0-5.8 HEMOGLOBIN (test code=HGB) 13.1 gram/dL 13.0-17.5 HEMATOCRIT (test code=HCT) 41.4 % 42.0-52.0 MEAN CELL VOLUME (test code=MCV) 82.6 fL 80-98 MEAN CELL HGB (test code=MCH) 26.1 picogram 27.0-33.0 MEAN CELL HGB CONCETRATION (test code=MCHC) 31.6 gram/dL 33.0-36.0 RED CELL DISTRIBUTION WIDTH (test code=RDW) 15.1 % 11.6-16.2 RED CELL DISTRIBUTION WIDTH SD (test code=RDW-SD) 46.0 fL 37.0-51.0 PLATELET COUNT (test code=PLT) 205 K/mm3 150-450 MEAN PLATELET VOLUME (test code=MPV) 10.6 fL 6.7-11.0 IMMATURE GRANULOCYTE % (test code=IG%) 1.0 % 0.0-5.0 NUCLEATED RBC % (test code=NRBC%) 0.0 % 0-0 NEUTROPHIL # (test code=NT#) 15.25 K/mm3 1.8-7.7 IMMATURE GRANULOCYTE # (test code=IG#) 0.17 x10 3/uL 0-0.03 LYMPHOCYTE # (test code=LY#) 0.92 K/mm3 1.0-5.0 MONOCYTE # (test code=MO#) 0.67 K/mm3 0-0.8 EOSINOPHIL # (test code=EO#) 0.00 K/mm3 0.0-0.5 BASOPHIL # (test code=BA#) 0.02 K/mm3 0.0-0.2 NUCLEATED RBC # (test code=NRBC#) 0.00 K/mm3 0.0-0.1 MANUAL DIFF REQUIRED (test code=MDIFF) YES STAIN ACCEPTABILITY (test code=STN ACCEPTABLE) TOTAL CELLS COUNTED (test code=TCC) #CELLS SEGMENTED NEUTROPHILS (test code=SEG) % 39-69 LYMPHOCYTE (test code=LYMPH) % 25-55 MONOCYTE (test code=MON) % 0-10 MORPHOLOGY COMMENT (test code=MOC) PLATELET ESTIMATE (test code=PLTEST) PLATELET MORPHOLOGY (test code=PLTMORPH) CBC W/MANUAL [id number] 05:37:00* Test Item Value Reference Range Comments WHITE BLOOD CELL (test code=WBC) 17.0 K/mm3 4.5-12.5 RED BLOOD CELL (test code=RBC) 5.01 mill/mm3 4.0-5.8 HEMOGLOBIN (test code=HGB) 13.1 gram/dL 13.0-17.5 HEMATOCRIT (test code=HCT) 41.4 % 42.0-52.0 MEAN CELL VOLUME (test code=MCV) 82.6 fL 80-98 MEAN CELL HGB (test code=MCH) 26.1 picogram 27.0-33.0 MEAN CELL HGB CONCETRATION (test code=MCHC) 31.6 gram/dL 33.0-36.0 RED CELL DISTRIBUTION WIDTH (test code=RDW) 15.1 % 11.6-16.2 RED CELL DISTRIBUTION WIDTH SD (test code=RDW-SD) 46.0 fL 37.0-51.0 PLATELET COUNT (test code=PLT) 205 K/mm3 150-450 MEAN PLATELET VOLUME (test code=MPV) 10.6 fL 6.7-11.0 IMMATURE GRANULOCYTE % (test code=IG%) 1.0 % 0.0-5.0 NUCLEATED RBC % (test code=NRBC%) 0.0 % 0-0 NEUTROPHIL # (test code=NT#) 15.25 K/mm3 1.8-7.7 IMMATURE GRANULOCYTE # (test code=IG#) 0.17 x10 3/uL 0-0.03 LYMPHOCYTE # (test code=LY#) 0.92 K/mm3 1.0-5.0 MONOCYTE # (test code=MO#) 0.67 K/mm3 0-0.8 EOSINOPHIL # (test code=EO#) 0.00 K/mm3 0.0-0.5 BASOPHIL # (test code=BA#) 0.02 K/mm3 0.0-0.2 NUCLEATED RBC # (test code=NRBC#) 0.00 K/mm3 0.0-0.1 MANUAL DIFF REQUIRED (test code=MDIFF) YES STAIN ACCEPTABILITY (test code=STN ACCEPTABLE) TOTAL CELLS COUNTED (test code=TCC) #CELLS SEGMENTED NEUTROPHILS (test code=SEG) % 39-69 LYMPHOCYTE (test code=LYMPH) % 25-55 MONOCYTE (test code=MON) % 0-10 EOSINOPHIL (test code=EOS) % 0.0-5.0 CABOT RINGS (test code=CAB) MORPHOLOGY COMMENT (test code=MOC) PLATELET ESTIMATE (test code=PLTEST) PLATELET MORPHOLOGY (test code=PLTMORPH) CBC W/MANUAL [id number] 05:37:00* Test Item Value Reference Range Comments WHITE BLOOD CELL (test code=WBC) 17.0 K/mm3 4.5-12.5 RED BLOOD CELL (test code=RBC) 5.01 mill/mm3 4.0-5.8 HEMOGLOBIN (test code=HGB) 13.1 gram/dL 13.0-17.5 HEMATOCRIT (test code=HCT) 41.4 % 42.0-52.0 MEAN CELL VOLUME (test code=MCV) 82.6 fL 80-98 MEAN CELL HGB (test code=MCH) 26.1 picogram 27.0-33.0 MEAN CELL HGB CONCETRATION (test code=MCHC) 31.6 gram/dL 33.0-36.0 RED CELL DISTRIBUTION WIDTH (test code=RDW) 15.1 % 11.6-16.2 RED CELL DISTRIBUTION WIDTH SD (test code=RDW-SD) 46.0 fL 37.0-51.0 PLATELET COUNT (test code=PLT) 205 K/mm3 150-450 MEAN PLATELET VOLUME (test code=MPV) 10.6 fL 6.7-11.0 IMMATURE GRANULOCYTE % (test code=IG%) 1.0 % 0.0-5.0 NUCLEATED RBC % (test code=NRBC%) 0.0 % 0-0 NEUTROPHIL # (test code=NT#) 15.25 K/mm3 1.8-7.7 IMMATURE GRANULOCYTE # (test code=IG#) 0.17 x10 3/uL 0-0.03 LYMPHOCYTE # (test code=LY#) 0.92 K/mm3 1.0-5.0 MONOCYTE # (test code=MO#) 0.67 K/mm3 0-0.8 EOSINOPHIL # (test code=EO#) 0.00 K/mm3 0.0-0.5 BASOPHIL # (test code=BA#) 0.02 K/mm3 0.0-0.2 NUCLEATED RBC # (test code=NRBC#) 0.00 K/mm3 0.0-0.1 MANUAL DIFF REQUIRED (test code=MDIFF) YES STAIN ACCEPTABILITY (test code=STN ACCEPTABLE) TOTAL CELLS COUNTED (test code=TCC) #CELLS SEGMENTED NEUTROPHILS (test code=SEG) % 39-69 LYMPHOCYTE (test code=LYMPH) % 25-55 MONOCYTE (test code=MON) % 0-10 EOSINOPHIL (test code=EOS) % 0.0-5.0 CABOT RINGS (test code=CAB) MORPHOLOGY COMMENT (test code=MOC) PLATELET ESTIMATE (test code=PLTEST) PLATELET MORPHOLOGY (test code=PLTMORPH) - CT ABD PELVIS W/O [id number] 17:20:00 Name: AB LANGSTON [facility] : 1940 Age/S: 78 / M [address] Unit #: [id number] Loc: [place] [address] Phys: Hussein Gaffney MD Acct: [id number] Dis Date: Status: ADM IN PHONE #: [phone] Exam Date: 12/22/2018 1650 FAX #: [phone] Reason: abdominal pain EXAMS: CPT CODE: [id number] CT ABD PELVIS W/O CONT [id number] REASON FOR EXAM: abdominal pain EXAM ORDER DATE: 12/22/2018 12:18 PM Ordering M.Mark: Hussein George MD PROCEDURE: - CT ABD PELVIS W/O CONT COMPARISON: FINDINGS: CT images of the abdomen and pelvis were obtained without IV and without oral contrast at 5mm. Dose modulation, iterative reconstruction, and/or weight based adjustment of the MA/KV was utilized to reduce the radiation dose to as low as reasonably achievable. The spleen and pancreas are grossly within normal limits. The gallbladder is contracted A 2.5 cm cyst seen in the left kidney the urinary bladder is contracted The colon, small bowel, and stomach are within normal limits without evidence of obstruction. The appendix is unremarkable No evidence of free air or free fluid. External iliac stent noted. The prostate is enlarged measuring 6.8 cm. IMPRESSION: Nodular contour liver suggestive of cirrhosis. Umbilical hernia with herniation of the loop of small bowel. The hernia sac. No evidence of bowel strangulatio n or obstruction. Electronically Signed by Fernanda Olvera on 9 at 1720 Reported and signed by: Felipe Olvera M.D. CC: Hussein Gaffney Technologist:OLIVER XIONG ER, RT(R) CT CTDI: DLP: Trnscb Date/Time: 12/22/2018 (1720 ) Carloz Orig Print D/T: S: 12/22/2018 (1723) PAG E 1 Signed Report - CT CHEST W/O [id number] 17:18:00 Name: AB LANGSTON [facility] : 1940 Age/S: 78 / M [address] Unit #: [id number] Loc: [place] [address] Phys: Hussein Gaffney MD Acct: [id number] Dis Date: Status: ADM IN PHONE #: [phone] Exam Date: 12/22/2018 1645 FAX #: [phone] Reason: CP EXAMS: CPT CODE: [id number] CT CHEST W/O CONTRAST [id number] REASON FOR EXAM: CP EXAM ORDER DATE: 12/22/2018 1:09 PM Ordering M.D.: Hussein George MD PROCEDURE: - CT CHEST W/O CONTRAST FINDINGS: CT images of the chest were obtained without IV contrast. Reconstructed sagittal and coronal images of the chest were provided for interpretation. Dose modulation, iterative reconstruction, and/or weight based adjustment of the MA/KV was utilized to reduce the radiation dose to as low as reasonably achievable. 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 Midline sternotomy wires present. No evidence of pericardial effusion. The thoracic aorta is aorta is unremarkable. No evidence of mediastinal or hilar adenopathy. The lungs are clear. No evidence of pleural effusion. IMPRESSION: Minimal atelectasis at the left base at 1718 Reported and signed by: Feilpe Olvera M.D. CC: Hussein Gaffney Technologist:OLIVER HARPER, RT(R) CT CTDI: DLP: Trnscb Date/Time: 12/22/2018 (171) [id number] Orig Print D/T: S: 12/22/2018 (8559) PAGE 1 Signed Report PROTHROMBIN [id number] 15:31:00* Test Item Value Reference Range Comments PROTHROMBIN TIME PATIENT (test code=PTP) 17.2 seconds 9.0-14.0 INTERNATIONAL NORMAL RATIO (test code=INR) 1.5 0.8-1.2 The therapeutic range for oral anticoagulant therapy formost indications is an international normalized ratio (INR)of between 2.0 and 3.0. The recommended therapeutic INRrange for various clinical situations is listed below: Clinical Situation INR range Pulmonary e mbolism treatment (2.0-3.0)Venous thrombosis treatmentVenous thrombosis prophylaxis (high risk surgery)Prevention of systemic embolism from: Acute myocardial infarction Valvular heart disease Atrial fibrillation Mechanical prosthetic heart valves (2.5-3.5) IS PATIENT ON ANTICOAGULANTS? NCBC W/MANUAL [id number] 14:16:00* Test Item Value Reference Range Comments WHITE BLOOD CELL (test code=WBC) 12.4 K/mm3 4.5-12.5 RED BLOOD CELL (test code=RBC) 5.33 mill/mm3 4.0-5.8 HEMOGLOBIN (test code=HGB) 14.1 gram/dL 13.0-17.5 HEMATOCRIT (test code=HCT) 45.2 % 42.0-52.0 MEAN CELL VOLUME (test code=MCV) 84.8 fL 80-98 MEAN CELL HGB (test code=MCH) 26.5 picogram 27.0-33.0 MEAN CELL HGB CONCETRATION (test code=MCHC) 31.2 gram/dL 33.0-36.0 RED CELL DISTRIBUTION WIDTH (test code=RDW) 15.1 % 11.6-16.2 RED CELL DISTRIBUTION WIDTH SD (test code=RDW-SD) 46.8 fL 37.0-51.0 PLATELET COUNT (test code=PLT) 208 K/mm3 150-450 MEAN PLATELET VOLUME (test code=MPV) 10.3 fL 6.7-11.0 IMMATURE GRANULOCYTE % (test code=IG%) 0.6 % 0.0-5.0 NUCLEATED RBC % (test code=NRBC%) 0.0 % 0-0 NEUTROPHIL # (test code=NT#) 9.68 K/mm3 1.8-7.7 IMMATURE GRANULOCYTE # (test code=IG#) 0.07 x10 3/uL 0-0.03 LYMPHOCYTE # (test code=LY#) 1.91 K/mm3 1.0-5.0 MONOCYTE # (test code=MO#) 0.64 K/mm3 0-0.8 EOSINOPHIL # (test code=EO#) 0.02 K/mm3 0.0-0.5 BASOPHIL # (test code=BA#) 0.03 K/mm3 0.0-0.2 NUCLEATED RBC # (test code=NRBC#) 0.00 K/mm3 0.0-0.1 MANUAL DIFF REQUIRED (test code=MDIFF) YES STAIN ACCEPTABILITY (test code=STN ACCEPTABLE) STAIN ACCEPTABLE TOTAL CELLS COUNTED (test code=TCC) 114 #CELLS SEGMENTED NEUTROPHILS (test code=SEG) 78.1 % 39-69 BAND NEUTROPHIL (test code=BAND) 2.6 % 0-10 LYMPHOCYTE (test code=LYMPH) 14.0 % 25-55 REACTIVE LYMPH (test code=RELYMPH) 0 % MONOCYTE (test code=MON) 5.3 % 0-10 EOSINOPHIL (test code=EOS) 0 % 0.0-5.0 BASOPHIL (test code=BASO) 0 % 0-1.0 METAMYELOCYTE (test code=META) 0 % 0-0 MYELOCYTE (test code=MYELO) 0 % 0.0-0.0 PROMYELOCYTE (test code=PROM) 0 % 0-0 POIKILOCYTOSIS (test code=POIK) 2+ ELLIPTOCYTES (test code=ELL) 1+ CRENATED CELLS (test code=CREN) 1+ PLATELET ESTIMATE (test code=PLTEST) ADEQUATE PLATELET MORPHOLOGY (test code=PLTMORPH) SIZE VARIABLE IMMATURE FORMS (test code=IMMAT) 0 % 0-0 BASIC METABOLIC [id number] 13:38:00* Test Item Value Reference Range Comments SODIUM (test code=NA) 137 mmol/L 136-145 POTASSIUM (test code=K) 3.3 mmol/L 3.5-5.1 CHLORIDE (test code=CL) 99.0 mmol/L 98-107 CARBON DIOXIDE (test code=CO2) 22.0 mmol/L 21-32 ANION GAP (test code=GAP) 19.3 10-20 GLUCOSE (test code=GLU) 119 mg/dL 74-106 BLOOD UREA NITROGEN (test code=BUN) 19 mg/dL 7-18 GLOMERULAR FILTRATION RATE (test code=GFR) > 60 mL/min >=60 Estimated GFR by using Modified MDRD formula.Chronic kidney disease is defined as either kidney damageor GFR <60 mL/min/1.73 m2 for >3 months. CREATININE (test code=CREAT) 1.30 mg/dL 0.7-1.3 BUN/CREATININE RATIO (test code=BUN/CREA) 14.6 10-20 CALCIUM (test code=CA) 8.5 mg/dL 8.5-10.1 BASIC METABOLIC [id number] 13:33:00* Test Item Value Reference Range Comments SODIUM (test code=NA) 137 mmol/L 136-145 POTASSIUM (test code=K) 3.3 mmol/L 3.5-5.1 CHLORIDE (test code=CL) 99.0 mmol/L 98-107 CARBON DIOXIDE (test code=CO2) mmol/L 21-32 ANION GAP (test code=GAP) 10-20 GLUCOSE (test code=GLU) mg/dL 74-106 BLOOD UREA NITROGEN (test code=BUN) mg/dL 7-18 GLOMERULAR FILTRATION RATE (test code=GFR) mL/min >=60 CREATININE (test code=CREAT) mg/dL 0.7-1.3 BUN/CREATININE RATIO (test code=BUN/CREA) 10-20 CALCIUM (test code=CA) mg/dL 8.5-10.1 CBC W/MANUAL [id number] 13:26:00* Test Item Value Reference Range Comments WHITE BLOOD CELL (test code=WBC) 12.4 K/mm3 4.5-12.5 RED BLOOD CELL (test code=RBC) 5.33 mill/mm3 4.0-5.8 HEMOGLOBIN (test code=HGB) 14.1 gram/dL 13.0-17.5 HEMATOCRIT (test code=HCT) 45.2 % 42.0-52.0 MEAN CELL VOLUME (test code=MCV) 84.8 fL 80-98 MEAN CELL HGB (test code=MCH) 26.5 picogram 27.0-33.0 MEAN CELL HGB CONCETRATION (test code=MCHC) 31.2 gram/dL 33.0-36.0 RED CELL DISTRIBUTION WIDTH (test code=RDW) 15.1 % 11.6-16.2 RED CELL DISTRIBUTION WIDTH SD (test code=RDW-SD) 46.8 fL 37.0-51.0 PLATELET COUNT (test code=PLT) 208 K/mm3 150-450 MEAN PLATELET VOLUME (test code=MPV) 10.3 fL 6.7-11.0 IMMATURE GRANULOCYTE % (test code=IG%) 0.6 % 0.0-5.0 NUCLEATED RBC % (test code=NRBC%) 0.0 % 0-0 NEUTROPHIL # (test code=NT#) 9.68 K/mm3 1.8-7.7 IMMATURE GRANULOCYTE # (test code=IG#) 0.07 x10 3/uL 0-0.03 LYMPHOCYTE # (test code=LY#) 1.91 K/mm3 1.0-5.0 MONOCYTE # (test code=MO#) 0.64 K/mm3 0-0.8 EOSINOPHIL # (test code=EO#) 0.02 K/mm3 0.0-0.5 BASOPHIL # (test code=BA#) 0.03 K/mm3 0.0-0.2 NUCLEATED RBC # (test code=NRBC#) 0.00 K/mm3 0.0-0.1 MANUAL DIFF REQUIRED (test code=MDIFF) YES STAIN ACCEPTABILITY (test code=STN ACCEPTABLE) TOTAL CELLS COUNTED (test code=TCC) #CELLS SEGMENTED NEUTROPHILS (test code=SEG) % 39-69 LYMPHOCYTE (test code=LYMPH) % 25-55 MONOCYTE (test code=MON) % 0-10 MORPHOLOGY COMMENT (test code=MOC) PLATELET ESTIMATE (test code=PLTEST) PLATELET MORPHOLOGY (test code=PLTMORPH) CBC W/MANUAL [id number] 13:22:00* Test Item Value Reference Range Comments WHITE BLOOD CELL (test code=WBC) 12.4 K/mm3 4.5-12.5 RED BLOOD CELL (test code=RBC) 5.33 mill/mm3 4.0-5.8 HEMOGLOBIN (test code=HGB) 14.1 gram/dL 13.0-17.5 HEMATOCRIT (test code=HCT) 45.2 % 42.0-52.0 MEAN CELL VOLUME (test code=MCV) 84.8 fL 80-98 MEAN CELL HGB (test code=MCH) 26.5 picogram 27.0-33.0 MEAN CELL HGB CONCETRATION (test code=MCHC) 31.2 gram/dL 33.0-36.0 RED CELL DISTRIBUTION WIDTH (test code=RDW) 15.1 % 11.6-16.2 RED CELL DISTRIBUTION WIDTH SD (test code=RDW-SD) 46.8 fL 37.0-51.0 PLATELET COUNT (test code=PLT) 208 K/mm3 150-450 MEAN PLATELET VOLUME (test code=MPV) 10.3 fL 6.7-11.0 IMMATURE GRANULOCYTE % (test code=IG%) 0.6 % 0.0-5.0 NUCLEATED RBC % (test code=NRBC%) 0.0 % 0-0 NEUTROPHIL # (test code=NT#) 9.68 K/mm3 1.8-7.7 IMMATURE GRANULOCYTE # (test code=IG#) 0.07 x10 3/uL 0-0.03 LYMPHOCYTE # (test code=LY#) 1.91 K/mm3 1.0-5.0 MONOCYTE # (test code=MO#) 0.64 K/mm3 0-0.8 EOSINOPHIL # (test code=EO#) 0.02 K/mm3 0.0-0.5 BASOPHIL # (test code=BA#) 0.03 K/mm3 0.0-0.2 NUCLEATED RBC # (test code=NRBC#) 0.00 K/mm3 0.0-0.1 MANUAL DIFF REQUIRED (test code=MDIFF) YES STAIN ACCEPTABILITY (test code=STN ACCEPTABLE) TOTAL CELLS COUNTED (test code=TCC) #CELLS SEGMENTED NEUTROPHILS (test code=SEG) % 39-69 LYMPHOCYTE (test code=LYMPH) % 25-55 MONOCYTE (test code=MON) % 0-10 EOSINOPHIL (test code=EOS) % 0.0-5.0 CABOT RINGS (test code=CAB) MORPHOLOGY COMMENT (test code=MOC) PLATELET ESTIMATE (test code=PLTEST) PLATELET MORPHOLOGY (test code=PLTMORPH) CBC W/MANUAL [id number] 13:22:00* Test Item Value Reference Range Comments WHITE BLOOD CELL (test code=WBC) 12.4 K/mm3 4.5-12.5 RED BLOOD CELL (test code=RBC) 5.33 mill/mm3 4.0-5.8 HEMOGLOBIN (test code=HGB) 14.1 gram/dL 13.0-17.5 HEMATOCRIT (test code=HCT) 45.2 % 42.0-52.0 MEAN CELL VOLUME (test code=MCV) 84.8 fL 80-98 MEAN CELL HGB (test code=MCH) 26.5 picogram 27.0-33.0 MEAN CELL HGB CONCETRATION (test code=MCHC) 31.2 gram/dL 33.0-36.0 RED CELL DISTRIBUTION WIDTH (test code=RDW) 15.1 % 11.6-16.2 RED CELL DISTRIBUTION WIDTH SD (test code=RDW-SD) 46.8 fL 37.0-51.0 PLATELET COUNT (test code=PLT) 208 K/mm3 150-450 MEAN PLATELET VOLUME (test code=MPV) 10.3 fL 6.7-11.0 IMMATURE GRANULOCYTE % (test code=IG%) 0.6 % 0.0-5.0 NUCLEATED RBC % (test code=NRBC%) 0.0 % 0-0 NEUTROPHIL # (test code=NT#) 9.68 K/mm3 1.8-7.7 IMMATURE GRANULOCYTE # (test code=IG#) 0.07 x10 3/uL 0-0.03 LYMPHOCYTE # (test code=LY#) 1.91 K/mm3 1.0-5.0 MONOCYTE # (test code=MO#) 0.64 K/mm3 0-0.8 EOSINOPHIL # (test code=EO#) 0.02 K/mm3 0.0-0.5 BASOPHIL # (test code=BA#) 0.03 K/mm3 0.0-0.2 NUCLEATED RBC # (test code=NRBC#) 0.00 K/mm3 0.0-0.1 MANUAL DIFF REQUIRED (test code=MDIFF) YES STAIN ACCEPTABILITY (test code=STN ACCEPTABLE) TOTAL CELLS COUNTED (test code=TCC) #CELLS SEGMENTED NEUTROPHILS (test code=SEG) % 39-69 LYMPHOCYTE (test code=LYMPH) % 25-55 MONOCYTE (test code=MON) % 0-10 EOSINOPHIL (test code=EOS) % 0.0-5.0 MORPHOLOGY COMMENT (test code=MOC) PLATELET ESTIMATE (test code=PLTEST) PLATELET MORPHOLOGY (test code=PLTMORPH) CBC W/MANUAL [id number] 13:21:00* Test Item Value Reference Range Comments WHITE BLOOD CELL (test code=WBC) 12.4 K/mm3 4.5-12.5 RED BLOOD CELL (test code=RBC) 5.33 mill/mm3 4.0-5.8 HEMOGLOBIN (test code=HGB) 14.1 gram/dL 13.0-17.5 HEMATOCRIT (test code=HCT) 45.2 % 42.0-52.0 MEAN CELL VOLUME (test code=MCV) 84.8 fL 80-98 MEAN CELL HGB (test code=MCH) 26.5 picogram 27.0-33.0 MEAN CELL HGB CONCETRATION (test code=MCHC) 31.2 gram/dL 33.0-36.0 RED CELL DISTRIBUTION WIDTH (test code=RDW) 15.1 % 11.6-16.2 RED CELL DISTRIBUTION WIDTH SD (test code=RDW-SD) 46.8 fL 37.0-51.0 PLATELET COUNT (test code=PLT) 208 K/mm3 150-450 MEAN PLATELET VOLUME (test code=MPV) 10.3 fL 6.7-11.0 IMMATURE GRANULOCYTE % (test code=IG%) 0.6 % 0.0-5.0 NUCLEATED RBC % (test code=NRBC%) 0.0 % 0-0 NEUTROPHIL # (test code=NT#) 9.68 K/mm3 1.8-7.7 IMMATURE GRANULOCYTE # (test code=IG#) 0.07 x10 3/uL 0-0.03 LYMPHOCYTE # (test code=LY#) 1.91 K/mm3 1.0-5.0 MONOCYTE # (test code=MO#) 0.64 K/mm3 0-0.8 EOSINOPHIL # (test code=EO#) 0.02 K/mm3 0.0-0.5 BASOPHIL # (test code=BA#) 0.03 K/mm3 0.0-0.2 NUCLEATED RBC # (test code=NRBC#) 0.00 K/mm3 0.0-0.1 MANUAL DIFF REQUIRED (test code=MDIFF) YES STAIN ACCEPTABILITY (test code=STN ACCEPTABLE) TOTAL CELLS COUNTED (test code=TCC) #CELLS SEGMENTED NEUTROPHILS (test code=SEG) % 39-69 LYMPHOCYTE (test code=LYMPH) % 25-55 MONOCYTE (test code=MON) % 0-10 EOSINOPHIL (test code=EOS) % 0.0-5.0 CABOT RINGS (test code=CAB) MORPHOLOGY COMMENT (test code=MOC) PLATELET ESTIMATE (test code=PLTEST) PLATELET MORPHOLOGY (test code=PLTMORPH) CBC W/MANUAL [id number] 13:21:00* Test Item Value Reference Range Comments WHITE BLOOD CELL (test code=WBC) 12.4 K/mm3 4.5-12.5 RED BLOOD CELL (test code=RBC) 5.33 mill/mm3 4.0-5.8 HEMOGLOBIN (test code=HGB) 14.1 gram/dL 13.0-17.5 HEMATOCRIT (test code=HCT) 45.2 % 42.0-52.0 MEAN CELL VOLUME (test code=MCV) 84.8 fL 80-98 MEAN CELL HGB (test code=MCH) 26.5 picogram 27.0-33.0 MEAN CELL HGB CONCETRATION (test code=MCHC) 31.2 gram/dL 33.0-36.0 RED CELL DISTRIBUTION WIDTH (test code=RDW) 15.1 % 11.6-16.2 RED CELL DISTRIBUTION WIDTH SD (test code=RDW-SD) 46.8 fL 37.0-51.0 PLATELET COUNT (test code=PLT) 208 K/mm3 150-450 MEAN PLATELET VOLUME (test code=MPV) 10.3 fL 6.7-11.0 IMMATURE GRANULOCYTE % (test code=IG%) 0.6 % 0.0-5.0 NUCLEATED RBC % (test code=NRBC%) 0.0 % 0-0 NEUTROPHIL # (test code=NT#) 9.68 K/mm3 1.8-7.7 IMMATURE GRANULOCYTE # (test code=IG#) 0.07 x10 3/uL 0-0.03 LYMPHOCYTE # (test code=LY#) 1.91 K/mm3 1.0-5.0 MONOCYTE # (test code=MO#) 0.64 K/mm3 0-0.8 EOSINOPHIL # (test code=EO#) 0.02 K/mm3 0.0-0.5 BASOPHIL # (test code=BA#) 0.03 K/mm3 0.0-0.2 NUCLEATED RBC # (test code=NRBC#) 0.00 K/mm3 0.0-0.1 MANUAL DIFF REQUIRED (test code=MDIFF) YES STAIN ACCEPTABILITY (test code=STN ACCEPTABLE) TOTAL CELLS COUNTED (test code=TCC) #CELLS SEGMENTED NEUTROPHILS (test code=SEG) % 39-69 LYMPHOCYTE (test code=LYMPH) % 25-55 MONOCYTE (test code=MON) % 0-10 EOSINOPHIL (test code=EOS) % 0.0-5.0 CABOT RINGS (test code=CAB) MORPHOLOGY COMMENT (test code=MOC) PLATELET ESTIMATE (test code=PLTEST) PLATELET MORPHOLOGY (test code=PLTMORPH) PROCALCITONIN (PCT)2018-12-22 10:04:00* Test Item Value Reference Range Comments PROCALCITONIN (PCT) (test code=PROCAL) 0.31 ng/ml Concentration Interpretation (ng/mL) <0.51 Sepsis is not likely. Local bacterial infection is possible. (LOW RISK for progression to Sepsis) 0.51 - 2.00 Sepsis is possible, but other conditions are known to elevate PCT as well. (MODERATE RISK for progression to Sepsis) > 2.00 Sepsis is likely, unless other causes are known. (HIGH RISK for progression to Severe Sepsis or Septic Shock) 10.00 High likelihood of Severe Sepsis or Septic or higher Shock. *Increased PCT levels may not always be related to systemic bacterial infection.*Low PCT levels do not automatically exclude the presence of bacterial infection.*All results should be interpreted taking into account the patients history. LACTIC [id number] 02:17:00* Test Item Value Reference Range Comments LACTIC ACID (test code=LACT) 1.1 mmol/L 0.4-1.9 CHEMISTRY 8 [id number] 23:47:00* Test Item Value Reference Range Comments ISTAT-SODIUM (test code=NAP) mmol/L 135-148 ISTAT-POTASSIUM (test code=KP) mmol/L 3.5-5.5 ISTAT-CHLORIDE (test code=CLP) mmol/L 101-109 ISTAT CARBON DIOXIDE (test code=ISTAT-CO2) mmol/L 21-32 ISTAT CALCIUM IONIZED (test code=ISTAT-ENRIE) mg/dL 1.12-1.32 ISTAT-ANION GAP (test code=GAPP) MEQ/L 10-20 ISTAT-GLUCOSE (test code=GLUP) mg/dL 74-106 ISTAT-BUN (test code=BUNP) mg/dL 3-21 BEDSIDE CREATININE (test code=CREATBED) mg/dL 0.7-1.3 GLOMERULAR FILTRATION RATE POC (test code=GFRBED) 79 >60 CHEMISTRY 8 [id number] 23:47:00* Test Item Value Reference Range Comments ISTAT-SODIUM (test code=NAP) 137 mmol/L 135-148 ISTAT-POTASSIUM (test code=KP) 2.8 mmol/L 3.5-5.5 ISTAT-CHLORIDE (test code=CLP) 100 mmol/L 101-109 ISTAT CARBON DIOXIDE (test code=ISTAT-CO2) 25.0 mmol/L 21-32 ISTAT CALCIUM IONIZED (test code=ISTAT-ERNIE) 1.01 mg/dL 1.12-1.32 ISTAT-ANION GAP (test code=GAPP) 16.0 MEQ/L 10-20 ISTAT-GLUCOSE (test code=GLUP) 126 mg/dL 74-106 ISTAT-BUN (test code=BUNP) 23 mg/dL 3-21 BEDSIDE CREATININE (test code=CREATBED) 1.1 mg/dL 0.7-1.3 GLOMERULAR FILTRATION RATE POC (test code=GFRBED) 79 >60 [id number] 21:41:00* Test Item Value Reference Range Comments MAGNESIUM (test code=MAG) 1.5 mg/dL 1.8-2.4 URINALYSIS [id number] 20:42:00* Test Item Value Reference Range Comments UA COLOR (test code=COLU) Dark-Yellow YELLOW UA APPEARANCE (test code=APPU) CLEAR CLEAR UA GLUCOSE DIPSTICK (test code=DGLUU) NEGATIVE mg/dL NEGATIVE UA BILIRUBIN DIPSTICK (test code=BILU) 0.5 (1+) mg/dL NEGATIVE UA KETONE DIPSTICK (test code=KETU) NEGATIVE mg/dL NEGATIVE UA SPECIFIC GRAVITY (test code=SGU) 1.016 1.001-1.035 UA BLOOD DIPSTICK (test code=BELEN) 0.5 mg/dL (2+) mg/dL NEGATIVE UA PH DIPSTICK (test code=LUCITA) 6.0 5.0-8.0 UA PROTEIN DIPSTICK (test code=PROU) 30 (1+) mg/dL NEGATIVE UA UROBILINIOGEN DIPSTICK (test code=URO) 2.0 (1+) mg/dL NEGATIVE UA NITRITE DIPSTICK (test code=EDWARD) POSITIVE NEGATIVE UA LEUKOCYTE ESTERASE W REFLEX (test code=LEUUR) NEGATIVE Britton/uL NEGATIVE UA WBC (test code=WBCU) 0-5 per HPF 0-5 UA RBC (test code=RBCU) 51-100 #/HPF 0-5 UA EPITHELIAL CELLS (test code=EPIU) FEW per HPF FEW UA BACTERIA (test code=BACU) FEW #/HPF NONE UA MUCUS (test code=MUCU) FEW #/LPF FEW Urine Source? Clean CatchBASIC METABOLIC [id number] 19:36:00* Test Item Value Reference Range Comments SODIUM (test code=NA) 137 mmol/L 136-145 POTASSIUM (test code=K) 2.7 mmol/L 3.5-5.1 Results called to [id number] by [facility] [place] 12/21/18 1935Critical results verified and read back by Nurse? Y CHLORIDE (test code=CL) 98.0 mmol/L 98-107 CARBON DIOXIDE (test code=CO2) 30.0 mmol/L 21-32 ANION GAP (test code=GAP) 11.7 10-20 GLUCOSE (test code=GLU) 116 mg/dL 74-106 BLOOD UREA NITROGEN (test code=BUN) 28 mg/dL 7-18 GLOMERULAR FILTRATION RATE (test code=GFR) 60 mL/min >=60 Estimated GFR by using Modified MDRD formula.Chronic kidney disease is defined as either kidney damageor GFR <60 mL/min/1.73 m2 for >3 months. CREATININE (test code=CREAT) 1.40 mg/dL 0.7-1.3 BUN/CREATININE RATIO (test code=BUN/CREA) 20.0 10-20 CALCIUM (test code=CA) 9.3 mg/dL 8.5-10.1 HEPATIC FUNCTION [id number] 19:36:00* Test Item Value Reference Range Comments TOTAL PROTEIN (test code=PROT) 7.8 gram/dL 6.4-8.2 ALBUMIN (test code=ALB) 3.4 g/dL 3.4-5.0 GLOBULIN (test code=GLOB) 4.4 gram/dL 2.7-4.2 ALBUMIN/GLOBULIN RATIO (test code=A/G) 0.8 0.75-1.50 BILIRUBIN TOTAL (test code=BILT) 1.90 mg/dL 0.0-1.0 BILIRUBIN DIRECT (test code=BILD) 0.55 mg/dL 0.0-0.20 SGOT/AST (test code=AST) 19 IUnit/L 15-37 SGPT/ALT (test code=ALT) 20 IUnit/L 12-78 ALKALINE PHOSPHATASE TOTAL (test code=ALKP) 122 IUnit/L 45-117 Note change in reference range due to change in reagent. CBC W/O [id number] 19:13:00* Test Item Value Reference Range Comments WHITE BLOOD CELL (test code=WBC) 13.3 K/mm3 4.5-12.5 RED BLOOD CELL (test code=RBC) 4.70 mill/mm3 4.0-5.8 HEMOGLOBIN (test code=HGB) 12.7 gram/dL 13.0-17.5 HEMATOCRIT (test code=HCT) 40.0 % 42.0-52.0 MEAN CELL VOLUME (test code=MCV) 85.1 fL 80-98 MEAN CELL HGB (test code=MCH) 27.0 picogram 27.0-33.0 MEAN CELL HGB CONCETRATION (test code=MCHC) 31.8 gram/dL 33.0-36.0 RED CELL DISTRIBUTION WIDTH (test code=RDW) 14.9 % 11.6-16.2 PLATELET COUNT (test code=PLT) 172 K/mm3 150-450 MEAN PLATELET VOLUME (test code=MPV) 10.0 fL 6.7-11.[id number] 18:08:00* Test Item Value Reference Range Comments FLUID SOURCE (test code=SOURCEFL) JOINT FLD LEFT KNEE ASPIRATION FLUID COLOR (test code=COLFL) RED COLORLESS FLUID APPEARANCE (test code=APPFL) [place] FLUID WBC AUTO (test code=WBCFLA) 4155 cells/uL FLUID RBC AUTO (test code=RBCFLA) 285543 cells/uL FLUID TOTAL CELLS (test code=TCFL) 4191 cells/uL >0 Fluid WBC RBC PMN% MN%Type cells/uL cells/uL CSF (0-5) n/a (2+/-4) (90+/-20)Peritoneal n/a n/a n/a n/aPleural n/a n/a n/a n/aSynovial <200 n/a <25% <75% CSF (0-30) n/a (4+/-4) (90+/-20) FLUID POLY (test code=POLYFL) 72.0 % FLUID LYMPHOCYTE (test code=LYMPHFL) 3.0 % FLUID EOSINOPHIL (test code=EOSFL) 1.0 % FLUID MACROPHAGE (test code=MACFL) 23.0 % FLUID OTHER CELL (test code=OTHERFL) 1.0 % TOTAL CELLS COUNTED ON DIFF (test code=TOTCELLFL) 100 cells REVIEWED BY (test code=REVIEW) PATHOLOGIST Reviewed by Pathologist, CANDELARIA CARMICHAEL M.D.10/23/18REVIEWED SPECIMEN COMMENTS: LEFT KNEE ASPIRATIONSYNOVIAL FLD [id number] 18:08:00 * Test Item Value Reference Range Comments SYNOVIAL FLD CRYSTALS (test code=CRYSY) Note: None seen Monosodium urate crystals seen, intracellular andextracellular.Performed At: [facility] [id number] Charlie Samuel MD Ph:[phone] SPECIMEN COMMENTS: LEFT KNEE ASPIRATIONSYNOVIAL FLD [id number] 18:08:00* Test Item Value Reference Range Comments SYNOVIAL FLD GLUCOSE (test code=GLUSY) 32 mg/dL SPECIMEN COMMENTS: LEFT KNEE ASPIRATIONBODY FLUID CELL [id number] 13:31:00* Test Item Value Reference Range Comments FLUID SOURCE (test code=SOURCEFL) JOINT FLD LEFT KNEE ASPIRATION FLUID COLOR (test code=COLFL) RED COLORLESS FLUID APPEARANCE (test code=APPFL) [place] FLUID WBC AUTO (test code=WBCFLA) 4155 cells/uL FLUID RBC AUTO (test code=RBCFLA) 544807 cells/uL FLUID TOTAL CELLS (test code=TCFL) 4191 cells/uL >0 Fluid WBC RBC PMN% MN%Type cells/uL cells/uL CSF (0-5) n/a (2+/-4) (90+/-20)Peritoneal n/a n/a n/a n/aPleural n/a n/a n/a n/aSynovial <200 n/a <25% <75% CSF (0-30) n/a (4+/-4) (90+/-20) FLUID POLY (test code=POLYFL) 72.0 % FLUID LYMPHOCYTE (test code=LYMPHFL) 3.0 % FLUID EOSINOPHIL (test code=EOSFL) 1.0 % FLUID MACROPHAGE (test code=MACFL) 23.0 % FLUID OTHER CELL (test code=OTHERFL) 1.0 % TOTAL CELLS COUNTED ON DIFF (test code=TOTCELLFL) 100 cells REVIEWED BY (test code=REVIEW) PATHOLOGIST Reviewed by Pathologist, CANDELARIA CARMICHAEL M.D.10/23/18REVIEWED SPECIMEN COMMENTS: LEFT KNEE ASPIRATIONSYNOVIAL FLD [id number] 13:31:00 * Test Item Value Reference Range Comments SYNOVIAL FLD CRYSTALS (test code=CRYSY) CRYSTALS NONE SEEN SPECIMEN COMMENTS: LEFT KNEE ASPIRATIONSYNOVIAL FLD [id number] 13:31:00* Test Item Value Reference Range Comments SYNOVIAL FLD GLUCOSE (test code=GLUSY) 32 mg/dL SPECIMEN COMMENTS: LEFT KNEE ASPIRATIONBODY FLUID CELL [id number] 13:24:00* Test Item Value Reference Range Comments FLUID SOURCE (test code=SOURCEFL) JOINT FLD LEFT KNEE ASPIRATION FLUID COLOR (test code=COLFL) RED COLORLESS FLUID APPEARANCE (test code=APPFL) [place] FLUID WBC AUTO (test code=WBCFLA) 4155 cells/uL FLUID RBC AUTO (test code=RBCFLA) 617453 cells/uL FLUID TOTAL CELLS (test code=TCFL) 4191 cells/uL >0 Fluid WBC RBC PMN% MN%Type cells/uL cells/uL CSF (0-5) n/a (2+/-4) (90+/-20)Peritoneal n/a n/a n/a n/aPleural n/a n/a n/a n/aSynovial <200 n/a <25% <75% CSF (0-30) n/a (4+/-4) (90+/-20) FLUID POLY (test code=POLYFL) 72.0 % FLUID LYMPHOCYTE (test code=LYMPHFL) 3.0 % FLUID EOSINOPHIL (test code=EOSFL) 1.0 % FLUID MACROPHAGE (test code=MACFL) 23.0 % FLUID OTHER CELL (test code=OTHERFL) 1.0 % TOTAL CELLS COUNTED ON DIFF (test code=TOTCELLFL) cells REVIEWED BY (test code=REVIEW) PATHOLOGIST Reviewed by Pathologist, CANDELARIA CARMICHAEL M.D.10/23/18REVIEWED SPECIMEN COMMENTS: LEFT KNEE ASPIRATIONSYNOVIAL FLD [id number] 13:24:00 * Test Item Value Reference Range Comments SYNOVIAL FLD CRYSTALS (test code=CRYSY) CRYSTALS NONE SEEN SPECIMEN COMMENTS: LEFT KNEE ASPIRATIONSYNOVIAL FLD [id number] 13:24:00* Test Item Value Reference Range Comments SYNOVIAL FLD GLUCOSE (test code=GLUSY) 32 mg/dL SPECIMEN COMMENTS: LEFT KNEE ASPIRATIONURIC [id number] 13:49:00* Test Item Value Reference Range Comments URIC ACID (test code=URIC) 11.1 mg/dL 2.6-7.2 VITAMIN [id number] 13:49:00* Test Item Value Reference Range Comments VITAMIN B12 (test code=VITB12) 493 pg/mL 193-986 THYROID PROFILE [id number] 13:49:00* Test Item Value Reference Range Comments T3 UPTAKE (test code=T3UP) 36.0 % 30.0-40.0 T4 (THYROXINE) (test code=T4) 9.1 ug/dL 4.5-13.9 T7 (FREE THYROXINE INDEX) (test code=T7) 3.27 FTI 1.3-5.1 THYROID STIMULATING HORMONE (test code=TSH) 0.338 uIU/mL 0.36-3.74 TSH REFERENCE RANGES: EUTHYROID: 0.35 - 4.3 mIU/mL HYPO : > 5.5 mIU/mL HYPER : < 0.35 mIU/mL [id number] 10:43:00* Test Item Value Reference Range Comments GLYCOSYLATED HEMOGLOBIN (HA1C) (test code=GLYHGB) 6.8 % HbA1 4.8-6.0 ESTIMATED AVERAGE GLUCOSE (test code=EAG) 148 MG/DL BASIC METABOLIC [id number] 09:15:00* Test Item Value Reference Range Comments SODIUM (test code=NA) 138 mmol/L 136-145 POTASSIUM (test code=K) 3.3 mmol/L 3.5-5.1 CHLORIDE (test code=CL) 101.0 mmol/L 98-107 CARBON DIOXIDE (test code=CO2) 28.0 mmol/L 21-32 ANION GAP (test code=GAP) 12.3 10-20 GLUCOSE (test code=GLU) 156 mg/dL 74-106 BLOOD UREA NITROGEN (test code=BUN) 18 mg/dL 7-18 GLOMERULAR FILTRATION RATE (test code=GFR) > 60 mL/min >=60 Estimated GFR by using Modified MDRD formula.Chronic kidney disease is defined as either kidney damageor GFR <60 mL/min/1.73 m2 for >3 months. CREATININE (test code=CREAT) 1.00 mg/dL 0.7-1.3 BUN/CREATININE RATIO (test code=BUN/CREA) 18.0 10-20 CALCIUM (test code=CA) 9.2 mg/dL 8.5-10.1 FOLIC [id number] 09:15:00* Test Item Value Reference Range Comments FOLIC ACID (test code=FOL) 10.8 ng/mL 3.10-17.50 BASIC METABOLIC [id number] 08:56:00* Test Item Value Reference Range Comments SODIUM (test code=NA) 138 mmol/L 136-145 POTASSIUM (test code=K) 3.3 mmol/L 3.5-5.1 CHLORIDE (test code=CL) 101.0 mmol/L 98-107 CARBON DIOXIDE (test code=CO2) mmol/L 21-32 ANION GAP (test code=GAP) 10-20 GLUCOSE (test code=GLU) mg/dL 74-106 BLOOD UREA NITROGEN (test code=BUN) mg/dL 7-18 GLOMERULAR FILTRATION RATE (test code=GFR) mL/min >=60 CREATININE (test code=CREAT) mg/dL 0.7-1.3 BUN/CREATININE RATIO (test code=BUN/CREA) 10-20 CALCIUM (test code=CA) mg/dL 8.5-10.1 FOLIC [id number] 08:56:00* Test Item Value Reference Range Comments FOLIC ACID (test code=FOL) ng/mL 3.10-17.50 CBC W/AUTO [id number] 08:08:00* Test Item Value Reference Range Comments WHITE BLOOD CELL (test code=WBC) 7.4 K/mm3 4.5-12.5 RED BLOOD CELL (test code=RBC) 4.43 mill/mm3 4.0-5.8 HEMOGLOBIN (test code=HGB) 11.9 gram/dL 13.0-17.5 HEMATOCRIT (test code=HCT) 37.4 % 42.0-52.0 MEAN CELL VOLUME (test code=MCV) 84.4 fL 80-98 MEAN CELL HGB (test code=MCH) 26.9 picogram 27.0-33.0 MEAN CELL HGB CONCETRATION (test code=MCHC) 31.8 gram/dL 33.0-36.0 RED CELL DISTRIBUTION WIDTH (test code=RDW) 14.1 % 11.6-16.2 RED CELL DISTRIBUTION WIDTH SD (test code=RDW-SD) 43.5 fL 37.0-51.0 PLATELET COUNT (test code=PLT) 243 K/mm3 150-450 MEAN PLATELET VOLUME (test code=MPV) 10.0 fL 6.7-11.0 NEUTROPHIL % (test code=NT%) 86.0 % 39.0-69.0 IMMATURE GRANULOCYTE % (test code=IG%) 0.5 % 0.0-5.0 LYMPHOCYTE % (test code=LY%) 10.3 % 25.0-55.0 MONOCYTE % (test code=MO%) 3.1 % 0.0-10.0 EOSINOPHIL % (test code=EO%) 0.0 % 0.0-5.0 BASOPHIL % (test code=BA%) 0.1 % 0.0-1.0 NUCLEATED RBC % (test code=NRBC%) 0.0 % 0-0 NEUTROPHIL # (test code=NT#) 6.34 K/mm3 1.8-7.7 IMMATURE GRANULOCYTE # (test code=IG#) 0.04 x10 3/uL 0-0.03 LYMPHOCYTE # (test code=LY#) 0.76 K/mm3 1.0-5.0 MONOCYTE # (test code=MO#) 0.23 K/mm3 0-0.8 EOSINOPHIL # (test code=EO#) 0.00 K/mm3 0.0-0.5 BASOPHIL # (test code=BA#) 0.01 K/mm3 0.0-0.2 NUCLEATED RBC # (test code=NRBC#) 0.00 K/mm3 0.0-0.1 MANUAL DIFF REQUIRED (test code=MDIFF) NO - USG NDL PLACEMENT (Biopsy/Asp)2018-10-21 07:21:00 Name: AB [facility] : 1940 Age/S: 78 / M [address] [facility] Unit #: [id number] Loc: [place] [address] Phys: Hussein Gaffney MD Acct: [id number] Dis Date: Status: ADM IN PHONE #: [phone] Exam Date: 10/20/2018 1807 FAX #: [phone] Reason: ABSCESS OF LEFT KNEE EXAMS: CPT CODE: [id number] USG NDL PLACEMENT (Biopsy/Asp) 75565 Fluoro Time: 0 DAP (Gy m2): 0 Air Kerma (mGy): 0 REASON FOR EXAM:Left knee swollen with diffusion PROCEDURE: Ultrasound-guided left knee aspiration with IV conscious sedation [id number] procedure time is approximately 45 minutes FINDINGS: Prior to the procedure, informed consent was obtained after risks and benefits of the procedure were explained to the patient. The patient agreed and wanted to proceed. The patient was brought to special procedures. The left knee was prepped was draped in the usual fashion. All elements of maximal sterile barrier techniques were applied. Ultrasound demonstrates mild left knee effusion. Images of the left knee effusion were submitted to PACS. Under real time u ltrasound guidance, a Opal needle was advanced into the left knee effusion. 15 mL of serosanguineous, viscous, cloudy fluid aspirated. Samples subm itted for microbiology and crystal analysis. MEDICATIONS: 2 mg of Versed, 50 mcg of fentanyl COMPLICATIONS: None Blood loss: Less than 5 mL IMPRESSION: 15 mL of serosanguineous, viscous, cloudy fluid aspirated from the left knee at 0721 Reported and signed by: Jaimee Olvera M.D. CC: Hussein Gaffney Technologist: JULIA KRISHNAMURTHY RT(R) Trn scb Date/Time: 10/21/2018 (720) Carloz Orig Print D/T : S: 10/21/2018 (0762) PAGE 1 Signed Report BODY FLUID CELL [id number] 21:10:00* Test Item Value Reference Range Comments FLUID SOURCE (test code=SOURCEFL) JOINT FLD LEFT KNEE ASPIRATION FLUID COLOR (test code=COLFL) RED COLORLESS FLUID APPEARANCE (test code=APPFL) [place] FLUID WBC AUTO (test code=WBCFLA) 4155 cells/uL FLUID RBC AUTO (test code=RBCFLA) 812609 cells/uL FLUID TOTAL CELLS (test code=TCFL) 4191 cells/uL >0 Fluid WBC RBC PMN% MN%Type cells/uL cells/uL CSF (0-5) n/a (2+/-4) (90+/-20)Peritoneal n/a n/a n/a n/aPleural n/a n/a n/a n/aSynovial <200 n/a <25% <75% CSF (0-30) n/a (4+/-4) (90+/-20) FLUID POLY (test code=POLYFL) 72.0 % FLUID LYMPHOCYTE (test code=LYMPHFL) 3.0 % FLUID EOSINOPHIL (test code=EOSFL) 1.0 % FLUID MACROPHAGE (test code=MACFL) 23.0 % FLUID OTHER CELL (test code=OTHERFL) 1.0 % TOTAL CELLS COUNTED ON DIFF (test code=TOTCELLFL) cells REVIEWED BY (test code=REVIEW) PATHOLOGIST SPECIMEN COMMENTS: LEFT KNEE ASPIRATIONSYNOVIAL FLD [id number] 21:10:00 * Test Item Value Reference Range Comments SYNOVIAL FLD CRYSTALS (test code=CRYSY) CRYSTALS NONE SEEN SPECIMEN COMMENTS: LEFT KNEE ASPIRATIONSYNOVIAL FLD [id number] 21:10:00* Test Item Value Reference Range Comments SYNOVIAL FLD GLUCOSE (test code=GLUSY) 32 mg/dL SPECIMEN COMMENTS: LEFT KNEE ASPIRATIONBODY FLUID CELL [id number] 19:56:00* Test Item Value Reference Range Comments FLUID SOURCE (test code=SOURCEFL) JOINT FLD LEFT KNEE ASPIRATION FLUID COLOR (test code=COLFL) RED COLORLESS FLUID APPEARANCE (test code=APPFL) [place] FLUID WBC (test code=WBCFL) per mm3 0-150 FLUID WBC AUTO (test code=WBCFLA) 4155 cells/uL FLUID RBC (test code=RBCFL) per mm3 0-50 FLUID RBC AUTO (test code=RBCFLA) 965286 cells/uL FLUID TOTAL CELLS (test code=TCFL) 4191 cells/uL >0 Fluid WBC RBC PMN% MN%Type cells/uL cells/uL CSF (0-5) n/a (2+/-4) (90+/-20)Peritoneal n/a n/a n/a n/aPleural n/a n/a n/a n/aSynovial <200 n/a <25% <75% CSF (0-30) n/a (4+/-4) (90+/-20) TOTAL CELLS COUNTED ON DIFF (test code=TOTCELLFL) cells REVIEWED BY (test code=REVIEW) PATHOLOGIST SPECIMEN COMMENTS: LEFT KNEE ASPIRATIONSYNOVIAL FLD [id number] 19:56:00 * Test Item Value Reference Range Comments SYNOVIAL FLD CRYSTALS (test code=CRYSY) CRYSTALS NONE SEEN SPECIMEN COMMENTS: LEFT KNEE ASPIRATIONSYNOVIAL FLD [id number] 19:56:00* Test Item Value Reference Range Comments SYNOVIAL FLD GLUCOSE (test code=GLUSY) 32 mg/dL SPECIMEN COMMENTS: LEFT KNEE ASPIRATIONBODY FLUID CELL [id number] 19:55:00* Test Item Value Reference Range Comments FLUID SOURCE (test code=SOURCEFL) JOINT FLD LEFT KNEE ASPIRATION FLUID COLOR (test code=COLFL) RED COLORLESS FLUID APPEARANCE (test code=APPFL) [place] FLUID WBC (test code=WBCFL) per mm3 0-150 FLUID RBC (test code=RBCFL) per mm3 0-50 FLUID TOTAL CELLS (test code=TCFL) cells/uL >0 TOTAL CELLS COUNTED ON DIFF (test code=TOTCELLFL) cells REVIEWED BY (test code=REVIEW) PATHOLOGIST SPECIMEN COMMENTS: LEFT KNEE ASPIRATIONSYNOVIAL FLD [id number] 19:55:00 * Test Item Value Reference Range Comments SYNOVIAL FLD CRYSTALS (test code=CRYSY) CRYSTALS NONE SEEN SPECIMEN COMMENTS: LEFT KNEE ASPIRATIONSYNOVIAL FLD [id number] 19:55:00* Test Item Value Reference Range Comments SYNOVIAL FLD GLUCOSE (test code=GLUSY) 32 mg/dL SPECIMEN COMMENTS: LEFT KNEE ASPIRATIONBODY FLUID CELL [id number] 19:37:00* Test Item Value Reference Range Comments FLUID SOURCE (test code=SOURCEFL) FLUID COLOR (test code=COLFL) COLORLESS FLUID APPEARANCE (test code=APPFL) FLUID WBC (test code=WBCFL) per mm3 0-150 FLUID RBC (test code=RBCFL) per mm3 0-50 FLUID TOTAL CELLS (test code=TCFL) cells/uL >0 TOTAL CELLS COUNTED ON DIFF (test code=TOTCELLFL) cells REVIEWED BY (test code=REVIEW) PATHOLOGIST SPECIMEN COMMENTS: LEFT KNEE ASPIRATIONSYNOVIAL FLD [id number] 19:37:00 * Test Item Value Reference Range Comments SYNOVIAL FLD CRYSTALS (test code=CRYSY) CRYSTALS NONE SEEN SPECIMEN COMMENTS: LEFT KNEE ASPIRATIONSYNOVIAL FLD [id number] 19:37:00* Test Item Value Reference Range Comments SYNOVIAL FLD GLUCOSE (test code=GLUSY) 32 mg/dL SPECIMEN COMMENTS: LEFT KNEE ASPIRATIONB-TYPE NATRIURETIC [id number] 18:04:00* Test Item Value Reference Range Comments B-TYPE NATRIURETIC PEPTIDE (test code=BNP) 132.88 pgram/mL 0-100 SED RATE [id number] 17:44:00* Test Item Value Reference Range Comments SED RATE WESTERGREN (test code=SEDW) 54 mm/hr 0-15 SED [id number] 17:44:00* Test Item Value Reference Range Comments SED RATE (test code=SEDW) 54 mm/hr 0-15 [place] METHOD: NORMAL RANGE FOR MEN: 0-9 MM/HR WOMAN: 0-20 MM/HR - XR CHEST 1 [id number] 16:45:00 FAX: Pk Veliz MD [phone] Platter: B St: ADM Name: AB ROSEN [facility] : [birth year] 42 Age/S: 78/M Vickie Lan Unit #: [id number] Loc: AMY Best, [place] [address] Phys: Pk Veliz MD Acct: [id number] Dis Date: Status: ADM IN PHONE #: [phone] Exam Date: 10/20/2018 1550 FAX #: [phone] Reason: cough EXAMS: CPT CODE: [id number] XR CHEST 1 V [id number] EXAM: Chest x-ray, one view; INFORMATION: Cough; leg pain; FINDINGS: The heart is significantly enlarged. There are increased vascular markings and there is left pleural opacification which is probably due to pleural, since this was already present on a study from January 02, 2018. No right-sided effusion. 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 Status post median sternotomy. IMPRESSION: Cardiomegaly and increased vascular markings, consistent with mild left heart failure. at 4901 Reported and signed by: Kaushik Yung M.D. CC: Pk Veliz MD Technologist: EMILIE LUU; Shelli Pedro RT(R) Trnscrd Date/Time/By: 10/20/2018 (0522) : By: DorothyGRW Orig Print D/T: S: 10/20/2018 (6191) PAGE 1 Signed Report HEPATIC FUNCTION PANEL 2018-10-20 16:08:00* Test Item Value Reference Range Comments TOTAL PROTEIN (test code=PROT) 8.3 gram/dL 6.4-8.2 ALBUMIN (test code=ALB) 3.4 g/dL 3.4-5.0 GLOBULIN (test code=GLOB) 4.9 gram/dL 2.7-4.2 ALBUMIN/GLOBULIN RATIO (test code=A/G) 0.7 0.75-1.50 BILIRUBIN TOTAL (test code=BILT) 1.20 mg/dL 0.0-1.0 BILIRUBIN DIRECT (test code=BILD) 0.33 mg/dL 0.0-0.20 SGOT/AST (test code=AST) 24 IUnit/L 15-37 SGPT/ALT (test code=ALT) 18 IUnit/L 12-78 ALKALINE PHOSPHATASE TOTAL (test code=ALKP) 115 IUnit/L 45-117 Note change in reference range due to change in reagent. C REACTIVE [id number] 15:37:00* Test Item Value Reference Range Comments C REACTIVE PROTEIN (test code=CRP) 12.40 mg/dL 0-0.3 PROTHROMBIN [id number] 15:12:00* Test Item Value Reference Range Comments PROTHROMBIN TIME PATIENT (test code=PTP) 16.3 seconds 9.0-14.0 INTERNATIONAL NORMAL RATIO (test code=INR) 1.4 0.8-1.2 The therapeutic range for oral anticoagulant therapy formost indications is an international normalized ratio (INR)of between 2.0 and 3.0. The recommended therapeutic INRrange for various clinical situations is listed below: Clinical Situation INR range Pulmonary e mbolism treatment (2.0-3.0)Venous thrombosis treatmentVenous thrombosis prophylaxis (high risk surgery)Prevention of systemic embolism from: Acute myocardial infarction Valvular heart disease Atrial fibrillation Mechanical prosthetic heart valves (2.5-3.5) IS PATIENT ON ANTICOAGULANTS? NTHROMBOPLASTIN TIME [id number] 15:12:00* Test Item Value Reference Range Comments THROMBOPLASTIN TIME PARTIAL (test code=PTT) 36.2 seconds 25.0-36.5 IS PATIENT ON ANTICOAGULANTS? N- US EXTREM NON VASC [id number] 14:05:00 Name: AB LANGSTON [facility] : 1940 Age/S: 78 / M [address] Unit #: [id number] Loc: [place], [place] [address] Phys: Destin Veliz MD Acct: [id number] Di s Date: Status: REG ER PHONE #: Exam Date: 10/20/2018 1354 FAX #: Reason: knee swelling EXAMS: CPT CODE: [id number] [facility] [place] [address] HISTORY: Knee swelling. COMPARISON: None available. Survey of the anterior knee demonstrating suprapatellar joint fluid. Prepatellar soft tissue swelling. IMPRESSION: Suprapatellar joint fluid and prepatellar soft tissue swelling. at 1405 Reported and signed by: Jeanette River M.D. CC: Pk Veliz MD Technologist: ANDRE FLORES RT(R),[facility] Date/Time: 10/20/2018 (1405) [email or web address] Orig Print D/T: S: 10/20/2018 (3392) Probe: PAGE 1 Signed Report BASIC METABOLIC [id number] 13:52:00* Test Item Value Reference Range Comments SODIUM (test code=NA) 138 mmol/L 136-145 POTASSIUM (test code=K) 3.5 mmol/L 3.5-5.1 CHLORIDE (test code=CL) 100.0 mmol/L 98-107 CARBON DIOXIDE (test code=CO2) 31.0 mmol/L 21-32 ANION GAP (test code=GAP) 10.5 10-20 GLUCOSE (test code=GLU) 115 mg/dL 74-106 BLOOD UREA NITROGEN (test code=BUN) 22 mg/dL 7-18 GLOMERULAR FILTRATION RATE (test code=GFR) > 60 mL/min >=60 Estimated GFR by using Modified MDRD formula.Chronic kidney disease is defined as either kidney damageor GFR <60 mL/min/1.73 m2 for >3 months. CREATININE (test code=CREAT) 1.20 mg/dL 0.7-1.3 BUN/CREATININE RATIO (test code=BUN/CREA) 18.3 10-20 CALCIUM (test code=CA) 9.3 mg/dL 8.5-10.1 1323BASIC METABOLIC [id number] 13:48:00* Test Item Value Reference Range Comments SODIUM (test code=NA) 138 mmol/L 136-145 POTASSIUM (test code=K) 3.5 mmol/L 3.5-5.1 CHLORIDE (test code=CL) 100.0 mmol/L 98-107 CARBON DIOXIDE (test code=CO2) mmol/L 21-32 ANION GAP (test code=GAP) 10-20 GLUCOSE (test code=GLU) mg/dL 74-106 BLOOD UREA NITROGEN (test code=BUN) mg/dL 7-18 GLOMERULAR FILTRATION RATE (test code=GFR) mL/min >=60 CREATININE (test code=CREAT) mg/dL 0.7-1.3 BUN/CREATININE RATIO (test code=BUN/CREA) 10-20 CALCIUM (test code=CA) 9.3 mg/dL 8.5-10.1 1323CBC W/AUTO [id number] 13:47:00* Test Item Value Reference Range Comments WHITE BLOOD CELL (test code=WBC) 7.1 K/mm3 4.5-12.5 RED BLOOD CELL (test code=RBC) 4.90 mill/mm3 4.0-5.8 HEMOGLOBIN (test code=HGB) 12.6 gram/dL 13.0-17.5 HEMATOCRIT (test code=HCT) 41.4 % 42.0-52.0 MEAN CELL VOLUME (test code=MCV) 84.5 fL 80-98 MEAN CELL HGB (test code=MCH) 25.7 picogram 27.0-33.0 MEAN CELL HGB CONCETRATION (test code=MCHC) 30.4 gram/dL 33.0-36.0 RED CELL DISTRIBUTION WIDTH (test code=RDW) 14.2 % 11.6-16.2 RED CELL DISTRIBUTION WIDTH SD (test code=RDW-SD) 43.5 fL 37.0-51.0 PLATELET COUNT (test code=PLT) 213 K/mm3 150-450 MEAN PLATELET VOLUME (test code=MPV) 10.4 fL 6.7-11.0 NEUTROPHIL % (test code=NT%) 68.7 % 39.0-69.0 IMMATURE GRANULOCYTE % (test code=IG%) 0.6 % 0.0-5.0 LYMPHOCYTE % (test code=LY%) 19.3 % 25.0-55.0 MONOCYTE % (test code=MO%) 10.7 % 0.0-10.0 EOSINOPHIL % (test code=EO%) 0.4 % 0.0-5.0 BASOPHIL % (test code=BA%) 0.3 % 0.0-1.0 NUCLEATED RBC % (test code=NRBC%) 0.0 % 0-0 NEUTROPHIL # (test code=NT#) 4.89 K/mm3 1.8-7.7 IMMATURE GRANULOCYTE # (test code=IG#) 0.04 x10 3/uL 0-0.03 LYMPHOCYTE # (test code=LY#) 1.37 K/mm3 1.0-5.0 MONOCYTE # (test code=MO#) 0.76 K/mm3 0-0.8 EOSINOPHIL # (test code=EO#) 0.03 K/mm3 0.0-0.5 BASOPHIL # (test code=BA#) 0.02 K/mm3 0.0-0.2 NUCLEATED RBC # (test code=NRBC#) 0.00 K/mm3 0.0-0.1 MANUAL DIFF REQUIRED (test code=MDIFF) NO, ONLY SCAN NEEDED DIFFERENTIAL [id number] 13:47:00* Test Item Value Reference Range Comments STAIN ACCEPTABILITY (test code=STN ACCEPTABLE) STAIN ACCEPTABLE MORPHOLOGY COMMENT (test code=MOC) NORMAL PLATELET ESTIMATE (test code=PLTEST) ADEQUATE PLATELET MORPHOLOGY (test code=PLTMORPH) GIANT PLATELETS SEEN - XR KNEE 3 V [id number] 13:46:00 FAX: Pk Veliz MD [phone] Platter: B St: REG Name: AB ROSEN [facility] : [birth year] Age/S: 78/M [address] [facility] Unit #: [id number] Loc: [place] [address] Phys: Pk Veliz MD Acct: [id number] Dis Date: Status: REG ER PHONE #: [phone] Exam Date: 10/20/2018 1325 FAX #: [phone] Reason: leg pain EXAMS: CPT CODE: [id number] XR KNEE 3 [place] [address] HISTORY: Knee pain. COMPARISON: None available. AP and lateral view of the left leg an d 3 views of the left knee: No acute fracture or dislocation. Knee joint is preserved. No osteochondral lesions. Ankle mortise is preserved. No osteochondral lesion of the talus. No joint fluid. Bone mineralization and soft tissues are normal. Vascular calcifications. IMP RESSION: No acute fracture or dislocation. Joint spaces are re latively preserved. at 7192 Reported and signed by: Quintin licona M.D. CC: Pk Veliz MD Technologist: Shelli Pedro RT(R); KEAGAN GOODMAN RT (R) Trnwvrd Date/Time/By: 10/20/2018 (4032) : By: [email or web address] Orig Print D/T: S: 10/20/2018 (7676) PAGE 1 Signed Report - XR TIBIA/FIBULA 2 V [id number] 13:46:00 FAX: Pk Veliz MD [phone] Platter: B St: REG Name: AB ROSEN [facility] : [birth year] Age/S: 78/M [address] [facility] Unit #: [id number] Loc: [place] [address] Phys: Pk Veliz MD Acct: [id number] Dis Date: Status: REG ER PHONE #: [phone] Exam Date: 10/20/2018 1330 FAX #: [phone] Reason: leg pain EXAMS: CPT CODE: [id number] XR TIBIA/FIBUL[place] [address] HISTORY: Knee pain. COMPARISON: None available. AP and lateral view of the left leg an d 3 views of the left knee: No acute fracture or dislocation. Knee joint is preserved. No osteochondral lesions. Ankle mortise is preserved. No osteochondral lesion of the talus. No joint fluid. Bone mineralization and soft tissues are normal. Vascular calcifications. IMP RESSION: No acute fracture or dislocation. Joint spaces are re latively preserved. at 0694 Reported and signed by: Quintin licona M.D. CC: Pk Veliz MD Technologist: Shelli Pedro RT(R); KEAGAN GOODMAN RT (R) Trnwvrd Date/Time/By: 10/20/2018 (8607) : By: [email or web address] Orig Print D/T: S: 10/20/2018 (4509) PAGE 1 Signed Report - XR FOOT 3 + V [id number] 13:45:00 FAX: Pk Veliz MD [phone] Platter: St: REG Name: AB ROSEN [facility] : [birth year] Age/S: 78/M [address] [facility] Unit #: [id number] Loc: [place] [address] Phys: Pk Veliz MD Acct: [id number] Dis Date: Status: REG ER PHONE #: [phone] Exam Date: 10/20/2018 1335 FAX #: [phone] Reason: leg pain EXAMS: CPT CODE: [id number] XR FOOT 3 + [place] LT [address] HISTORY: Pain after trauma. COMPARISON: None available. 3 views of the left foot and a nkle: No acute fracture. Ankle mortise is preserved. Large osteoph yte from the medial malleolus. No osteochondral lesion of the talus. Suspe cted dorsal subluxation at the cuboid cuneiform junction. Soft tissue swelling along the dorsum. Correlate clinically. Joint spaces otherwise are preserved. Achilles enthesophyte. No ankle joint fluid. IMPR ESSION: No acute fracture. Suspected dorsal subluxation at the cuboid cuneiform junction. Correlate clinically. Soft tissue swelling. Ankle mortise is preserved. No ankle joint fluid. at 2825 Reported and signed by: Quintin River M.D. CC: Pk Veliz MD Technologist: Shelli Pedro RT(R); KEAGAN GOODMAN RT (R) Trnwvrd Date/Time/By: 10/20/2018 (2123) : By: [email or web address] Orig Print D/T: S: 10/20/2018 (0636) PAGE 1 Signed Report - XR ANKLE 3 + V [id number] 13:45:00 FAX: Pk Veliz MD [phone] Platter: St: REG Name: AB ROSEN [facility] : [birth year] Age/S: 78/M [address] [facility] Unit #: [id number] Loc: [place] [address] Phys: Pk Veliz MD Acct: [id number] Dis Date: Status: REG ER PHONE #: [phone] Exam Date: 10/20/2018 1333 FAX #: [phone] Reason: leg pain EXAMS: CPT CODE: [id number] XR ANKLE 3 + [place] LT [address] HISTORY: Pain after trauma. COMPARISON: None available. 3 views of the left foot and a nkle: No acute fracture. Ankle mortise is preserved. Large osteoph yte from the medial malleolus. No osteochondral lesion of the talus. Suspe cted dorsal subluxation at the cuboid cuneiform junction. Soft tissue swelling along the dorsum. Correlate clinically. Joint spaces otherwise are preserved. Achilles enthesophyte. No ankle joint fluid. IMPR ESSION: No acute fracture. Suspected dorsal subluxation at the cuboid cuneiform junction. Correlate clinically. Soft tissue swelling. Ankle mortise is preserved. No ankle joint fluid. at 5273 Reported and signed by: Quintin River M.D. CC: Pk Veliz MD Technologist: KEAGAN GOODMAN RT (R) Trnscrd Date/Time/By: 10/20/2018 (2554) : By: [email or web address] Orig Print D/T: S: 10/20/2018 (5291) PAGE 1 Signed Report CBC W/AUTO [id number] 13:22:00* Test Item Value Reference Range Comments WHITE BLOOD CELL (test code=WBC) 7.1 K/mm3 4.5-12.5 RED BLOOD CELL (test code=RBC) 4.90 mill/mm3 4.0-5.8 HEMOGLOBIN (test code=HGB) 12.6 gram/dL 13.0-17.5 HEMATOCRIT (test code=HCT) 41.4 % 42.0-52.0 MEAN CELL VOLUME (test code=MCV) 84.5 fL 80-98 MEAN CELL HGB (test code=MCH) 25.7 picogram 27.0-33.0 MEAN CELL HGB CONCETRATION (test code=MCHC) 30.4 gram/dL 33.0-36.0 RED CELL DISTRIBUTION WIDTH (test code=RDW) 14.2 % 11.6-16.2 RED CELL DISTRIBUTION WIDTH SD (test code=RDW-SD) 43.5 fL 37.0-51.0 PLATELET COUNT (test code=PLT) 213 K/mm3 150-450 MEAN PLATELET VOLUME (test code=MPV) 10.4 fL 6.7-11.0 NEUTROPHIL % (test code=NT%) 68.7 % 39.0-69.0 IMMATURE GRANULOCYTE % (test code=IG%) 0.6 % 0.0-5.0 LYMPHOCYTE % (test code=LY%) 19.3 % 25.0-55.0 MONOCYTE % (test code=MO%) 10.7 % 0.0-10.0 EOSINOPHIL % (test code=EO%) 0.4 % 0.0-5.0 BASOPHIL % (test code=BA%) 0.3 % 0.0-1.0 NUCLEATED RBC % (test code=NRBC%) 0.0 % 0-0 NEUTROPHIL # (test code=NT#) 4.89 K/mm3 1.8-7.7 IMMATURE GRANULOCYTE # (test code=IG#) 0.04 x10 3/uL 0-0.03 LYMPHOCYTE # (test code=LY#) 1.37 K/mm3 1.0-5.0 MONOCYTE # (test code=MO#) 0.76 K/mm3 0-0.8 EOSINOPHIL # (test code=EO#) 0.03 K/mm3 0.0-0.5 BASOPHIL # (test code=BA#) 0.02 K/mm3 0.0-0.2 NUCLEATED RBC # (test code=NRBC#) 0.00 K/mm3 0.0-0.1 MANUAL DIFF REQUIRED (test code=MDIFF) NO, ONLY SCAN NEEDED DIFFERENTIAL [id number] 13:22:00* Test Item Value Reference Range Comments STAIN ACCEPTABILITY (test code=STN ACCEPTABLE) CABOT RINGS (test code=CAB) MORPHOLOGY COMMENT (test code=MOC) PLATELET ESTIMATE (test code=PLTEST) PLATELET MORPHOLOGY (test code=PLTMORPH) CBC W/AUTO [id number] 13:22:00* Test Item Value Reference Range Comments WHITE BLOOD CELL (test code=WBC) 7.1 K/mm3 4.5-12.5 RED BLOOD CELL (test code=RBC) 4.90 mill/mm3 4.0-5.8 HEMOGLOBIN (test code=HGB) 12.6 gram/dL 13.0-17.5 HEMATOCRIT (test code=HCT) 41.4 % 42.0-52.0 MEAN CELL VOLUME (test code=MCV) 84.5 fL 80-98 MEAN CELL HGB (test code=MCH) 25.7 picogram 27.0-33.0 MEAN CELL HGB CONCETRATION (test code=MCHC) 30.4 gram/dL 33.0-36.0 RED CELL DISTRIBUTION WIDTH (test code=RDW) 14.2 % 11.6-16.2 RED CELL DISTRIBUTION WIDTH SD (test code=RDW-SD) 43.5 fL 37.0-51.0 PLATELET COUNT (test code=PLT) 213 K/mm3 150-450 MEAN PLATELET VOLUME (test code=MPV) 10.4 fL 6.7-11.0 NEUTROPHIL % (test code=NT%) 68.7 % 39.0-69.0 IMMATURE GRANULOCYTE % (test code=IG%) 0.6 % 0.0-5.0 LYMPHOCYTE % (test code=LY%) 19.3 % 25.0-55.0 MONOCYTE % (test code=MO%) 10.7 % 0.0-10.0 EOSINOPHIL % (test code=EO%) 0.4 % 0.0-5.0 BASOPHIL % (test code=BA%) 0.3 % 0.0-1.0 NUCLEATED RBC % (test code=NRBC%) 0.0 % 0-0 NEUTROPHIL # (test code=NT#) 4.89 K/mm3 1.8-7.7 IMMATURE GRANULOCYTE # (test code=IG#) 0.04 x10 3/uL 0-0.03 LYMPHOCYTE # (test code=LY#) 1.37 K/mm3 1.0-5.0 MONOCYTE # (test code=MO#) 0.76 K/mm3 0-0.8 EOSINOPHIL # (test code=EO#) 0.03 K/mm3 0.0-0.5 BASOPHIL # (test code=BA#) 0.02 K/mm3 0.0-0.2 NUCLEATED RBC # (test code=NRBC#) 0.00 K/mm3 0.0-0.1 MANUAL DIFF REQUIRED (test code=MDIFF) NO, ONLY SCAN NEEDED DIFFERENTIAL [id number] 13:22:00* Test Item Value Reference Range Comments STAIN ACCEPTABILITY (test code=STN ACCEPTABLE) CABOT RINGS (test code=CAB) MORPHOLOGY COMMENT (test code=MOC) PLATELET ESTIMATE (test code=PLTEST) PLATELET MORPHOLOGY (test code=PLTMORPH) CBC W/AUTO [id number] 13:22:00* Test Item Value Reference Range Comments WHITE BLOOD CELL (test code=WBC) 7.1 K/mm3 4.5-12.5 RED BLOOD CELL (test code=RBC) 4.90 mill/mm3 4.0-5.8 HEMOGLOBIN (test code=HGB) 12.6 gram/dL 13.0-17.5 HEMATOCRIT (test code=HCT) 41.4 % 42.0-52.0 MEAN CELL VOLUME (test code=MCV) 84.5 fL 80-98 MEAN CELL HGB (test code=MCH) 25.7 picogram 27.0-33.0 MEAN CELL HGB CONCETRATION (test code=MCHC) 30.4 gram/dL 33.0-36.0 RED CELL DISTRIBUTION WIDTH (test code=RDW) 14.2 % 11.6-16.2 RED CELL DISTRIBUTION WIDTH SD (test code=RDW-SD) 43.5 fL 37.0-51.0 PLATELET COUNT (test code=PLT) 213 K/mm3 150-450 MEAN PLATELET VOLUME (test code=MPV) 10.4 fL 6.7-11.0 NEUTROPHIL % (test code=NT%) 68.7 % 39.0-69.0 IMMATURE GRANULOCYTE % (test code=IG%) 0.6 % 0.0-5.0 LYMPHOCYTE % (test code=LY%) 19.3 % 25.0-55.0 MONOCYTE % (test code=MO%) 10.7 % 0.0-10.0 EOSINOPHIL % (test code=EO%) 0.4 % 0.0-5.0 BASOPHIL % (test code=BA%) 0.3 % 0.0-1.0 NUCLEATED RBC % (test code=NRBC%) 0.0 % 0-0 NEUTROPHIL # (test code=NT#) 4.89 K/mm3 1.8-7.7 IMMATURE GRANULOCYTE # (test code=IG#) 0.04 x10 3/uL 0-0.03 LYMPHOCYTE # (test code=LY#) 1.37 K/mm3 1.0-5.0 MONOCYTE # (test code=MO#) 0.76 K/mm3 0-0.8 EOSINOPHIL # (test code=EO#) 0.03 K/mm3 0.0-0.5 BASOPHIL # (test code=BA#) 0.02 K/mm3 0.0-0.2 NUCLEATED RBC # (test code=NRBC#) 0.00 K/mm3 0.0-0.1 MANUAL DIFF REQUIRED (test code=MDIFF) NO, ONLY SCAN NEEDED DIFFERENTIAL [id number] 13:22:00* Test Item Value Reference Range Comments STAIN ACCEPTABILITY (test code=STN ACCEPTABLE) MORPHOLOGY COMMENT (test code=MOC) PLATELET ESTIMATE (test code=PLTEST) PLATELET MORPHOLOGY (test code=PLTMORPH) CBC W/AUTO [id number] 13:22:00* Test Item Value Reference Range Comments WHITE BLOOD CELL (test code=WBC) 7.1 K/mm3 4.5-12.5 RED BLOOD CELL (test code=RBC) 4.90 mill/mm3 4.0-5.8 HEMOGLOBIN (test code=HGB) 12.6 gram/dL 13.0-17.5 HEMATOCRIT (test code=HCT) 41.4 % 42.0-52.0 MEAN CELL VOLUME (test code=MCV) 84.5 fL 80-98 MEAN CELL HGB (test code=MCH) 25.7 picogram 27.0-33.0 MEAN CELL HGB CONCETRATION (test code=MCHC) 30.4 gram/dL 33.0-36.0 RED CELL DISTRIBUTION WIDTH (test code=RDW) 14.2 % 11.6-16.2 RED CELL DISTRIBUTION WIDTH SD (test code=RDW-SD) 43.5 fL 37.0-51.0 PLATELET COUNT (test code=PLT) 213 K/mm3 150-450 MEAN PLATELET VOLUME (test code=MPV) 10.4 fL 6.7-11.0 NEUTROPHIL % (test code=NT%) 68.7 % 39.0-69.0 IMMATURE GRANULOCYTE % (test code=IG%) 0.6 % 0.0-5.0 LYMPHOCYTE % (test code=LY%) 19.3 % 25.0-55.0 MONOCYTE % (test code=MO%) 10.7 % 0.0-10.0 EOSINOPHIL % (test code=EO%) 0.4 % 0.0-5.0 BASOPHIL % (test code=BA%) 0.3 % 0.0-1.0 NUCLEATED RBC % (test code=NRBC%) 0.0 % 0-0 NEUTROPHIL # (test code=NT#) 4.89 K/mm3 1.8-7.7 IMMATURE GRANULOCYTE # (test code=IG#) 0.04 x10 3/uL 0-0.03 LYMPHOCYTE # (test code=LY#) 1.37 K/mm3 1.0-5.0 MONOCYTE # (test code=MO#) 0.76 K/mm3 0-0.8 EOSINOPHIL # (test code=EO#) 0.03 K/mm3 0.0-0.5 BASOPHIL # (test code=BA#) 0.02 K/mm3 0.0-0.2 NUCLEATED RBC # (test code=NRBC#) 0.00 K/mm3 0.0-0.1 MANUAL DIFF REQUIRED (test code=MDIFF) NO, ONLY SCAN NEEDED DIFFERENTIAL [id number] 13:22:00* Test Item Value Reference Range Comments STAIN ACCEPTABILITY (test code=STN ACCEPTABLE) CABOT RINGS (test code=CAB) MORPHOLOGY COMMENT (test code=MOC) PLATELET ESTIMATE (test code=PLTEST) PLATELET MORPHOLOGY (test code=PLTMORPH) BARIUM [id number] 08:49:00 [place] [address] Patient Name: AB LANGSTON MR #: [id number] : 1940 Age/Sex: 78/M Req #: [id number] Adm Physician: Ordered by: VINOD LAW MD Report #: [id number] Location: DX Room/Bed: Procedure: [id number] DX/BAR IUM SWALLOW Exam Date: 09/26/18 Exam Time: 0730 REPORT STATUS: Signed FLUOROSCOPIC B ARIUM SWALLOW HISTORY: Dysphagia ANALYSIS ANALYST: Rose Cade MD Com parison: Chest radiograph 09/26/2018. Procedure: Double contrast barium sw allow was performed using thick and thin oral barium and effervescent crystals . Radiation Exposure: Fluoroscopy Time: 2.8 minute Radiation dose: 124.08 mGy DISCUSSION: Please refer to the same day chest radiograph for details of intrathoracic findings. ESOPHAGUS: Motility: Primarily primary and secondary contractions. Scattered tertiary contractions. Muc doreen: There is a small upper esophageal outpouching at C7/T1 that changes confi guration on different swallows. No definite ulcer or mass lesion. Distensi bility: Normal. GASTROESOPHAGEAL JUNCTION: Small hiatal hernia. GAS TROESOPHAGEAL REFLUX: Mild spontaneous gastroesophageal reflux. STOMACH: Normally distensible and demonstrates normal contours and mucosal pattern. DUODENUM/PROXIMAL SMALL BOWEL: Unremarkable. 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 The location is lower th an expected for a Zenker diverticulum. An endoscopy is suggested for further e valuation. Small hiatal hernia. Mild spontaneous gastroesophageal reflux. Signed by: Dr. Rose Cade MD on 09/26/2018 9:31 AM Dictated By: EVELYN CADE MD 0 Transcribed By: ALICIA on 09/26/18930 COPY TO: VINOD LAW MD CHEST 2 [id number] 08:04:00 [place] [address] Patient Name: AB LANGSTON MR #: [id number] : 1940 Age/Sex: 78/M Req #: [id number] Adm Physician: Ordered by: VINOD LAW MD Report #: [id number] Location: DX Room/Bed: Procedure: [id number] DX/KENNA ST 2 VIEWS Exam Date: 09/26/18 Exam Time: 07 REPORT STATUS: Signed EXAMINATION: C HEST 2 VIEWS INDICATION: Dysphagia/cough. COMPARISON: None FINDINGS: TUBES and LINES: Left-sided pacemaker with single lead overlyi ng the right ventricle. LUNGS: Lungs are well inflated. Mild patchy opac ities at the right lung base. No evidence of pulmonary edema or lobar consolid ation. PLEURA: No pleural effusion or pneumothorax. HEART AND MEDIAS TINUM: The cardiomediastinal silhouette is moderately enlarged. BONES A ND SOFT TISSUES: No acute osseous abnormality. Status post median sternotomy. UPPER ABDOMEN: No free air under the diaphragm. IMPRESSION: Mi ld patchy right basilar opacity, likely atelectasis. Pneumonia is possible in the appropriate clinical setting. Followup chest radiograph is suggested in 6-8 weeks to assess for resolution. Moderate cardiomegaly without pulmonary edema. Signed by: Dr. Rose Cade MD on 09/26/2018 8:06 AM Dictated By: ROSE CADE MD 5 Tra nscribed By: ALICIA on 09/26/18805 COPY TO: VINOD LAW MD CT CHEST WO [place] [address] Patient Name: AB LANGSTON MR #: [id number] : 1940 Age/Sex: 77/M Req #: [id number] Adm Physician: Ordered by: NNEKA MCFARLAND MD Report #: [id number] Location: CT Room/Bed: Procedure: [id number] CT/CT CHEST WO Exam Date: 01/22 Exam Time: 1025 REPORT STATUS: Signed PROCEDURE: CT CHEST WITHOUT CONTRAST CT scan of the chest WITHOUT intravenous contrast, using standard protocol. TECHNIQUE: The chest was scanned u tilizing a multidetector helical scanner from the apex to the level of the ad renal glands. No IV contrast was administered because of referring physician request. Coronal and sagittal multiplanar reformations were obtained. COMPARISON: 01/13/2016. INDICATIONS: ASTHMA, SMOKER FINDINGS: Lungs and Airways: Unchanged linear opacity in the left lung apex and lingula compatible with scar. Trace subsegmental atelectasis in the lower lobes, left greater than right. No consolidation, gross mass lesion, or bronchiectasis. Pleura: No pleural effusion or pneumothorax. Heart and mediastinum: Visualized portions of the thyroid gland are unremarkable. Left subclavian a pproach implantable cardiac device body and lead are unchanged. 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 Calcifications at the left atrial appendage are unchan ged. The ascending thoracic aorta is ectatic, measuring 4 cm transversely, no t significantly changed relative to 01/13/2016. Enlargement of the pulmonary outflow tract is again noted to approximately 3.5 cm. Stable enlargement of the cardiac chambers without pericardial effusion. Multiple calcified right h ilar lymph nodes are unchanged. No axillary, hilar, or mediastinal lymphadeno shelby. Soft tissues: Left gynecomastia has decreased in density relative t o 01/13/2016. Mild right gynecomastia is stable. No additional focal soft ti ssue abnormalities. Abdomen: Visualized portions of the spleen, and pancr eatic tail are unremarkable. Questionable subtle nodularity of the hepatic co ntour is again noted. 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 Postsurgical changes of median sternotomy. No osseous britt tructive lesions. IMPRESSION: Stable linear fibrotic change in the left lung apex and lingula. No acute thoracic CT abnormalities. Car diomegaly and enlargement of the pulmonary outflow tract, similar in degree t o that noted on 01/13/2016. Mild ectasia of the ascending thoracic aorta (3. 9 cm). Questionable nodular hepatic contour is again noted, which may edy daly cirrhosis. Dictated by: Prisca Asher M.D. on 06/13/2017 at 11: 28 Electronically approved by: Prisca Asher M.D. on 06/13/2017 at 11:28 Dictated By: PRISCA ASHER MD [id number] Transcribed By: MICK on 06/13/17 1128 COPY TO: NNEKA MCFARLAND MD
[2019-06-06] MEDS ORDERED: ASPIRIN 81 MG CHEW TAB PO ONE (11:15)
[2019-06-06 11:25] LABS: BASOPHILS % 0.3 % (0.0-1.0); EOSINOPHILS # (AUTO) 0.1 (0.0-0.4); EOSINOPHILS % 0.7 % (0.0-6.0); HEMATOCRIT 34.7 % (38.2-49.6); HEMOGLOBIN 11.3 g/dL (14.0-18.0); LYMPHOCYTES # (AUTO) 1.1 (1.0-3.2); LYMPHOCYTES % 15.8 % (18.0-39.1); MEAN CORPUSCULAR HEMOGLOBIN 26.5 pg (28-32); MEAN CORPUSCULAR HGB CONC 32.6 g/dL (31-35); MEAN CORPUSCULAR VOLUME 81.3 fL (81-99); MONOCYTES % 13.4 % (4.4-11.3); NEUTROPHILS % 69.2 % (38.7-80.0); PLATELET COUNT 269 x10e3/uL (140-360); RED BLOOD COUNT 4.27 x10e6/uL (4.3-5.7); RED CELL DISTRIBUTION WIDTH 15.8 % (11.7-14.4)
[2019-06-06 11:38] LABS: INR 1.08; PROTHROMBIN TIME 14.5 seconds (11.9-14.5)
[2019-06-06 11:39] LABS: PARTIAL THROMBOPLASTIN TIME 31.4 seconds (23.8-35.5)
[2019-06-06 11:46] LABS: ALBUMIN 3.7 g/dL (3.5-5.0); ALBUMIN/GLOBULIN RATIO 0.9 (0.8-2.0); ANION GAP 23.5 mmol/L (8-16); CALCIUM 9.2 mg/dL (8.4-10.2); CREATININE, SERUM 8.52 mg/dL (0.72-1.25); MAGNESIUM 1.7 MG/DL (1.3-2.1); POTASSIUM 4.5 mmol/L (3.5-5.1)
--- NOTE | 2019-06-06 12:16 | Diagnostic Imaging Report ---
EXAMINATION: CHEST SINGLE (PORTABLE) INDICATION: Shortness of breath COMPARISON: Chest radiograph of 09/26/2018 FINDINGS: LINES/TUBES:EKG leads overlie the chest. Left chest pacer. LUNGS:The lungs are moderately inflated. There is perihilar fullness and indistinctness of the pulmonary vasculature. PLEURA:No pleural effusion or pneumothorax. MEDIASTINUM:Cardiomediastinal silhouette is stably enlarged. Atherosclerotic calcifications of the thoracic aorta. Postoperative changes of prior CABG. BONES/SOFT TISSUES:No acute osseous injury. ABDOMEN:No free air under the diaphragm. IMPRESSION: Cardiomegaly and interstitial pulmonary edema. Signed by: Carlin Arrington MD on 06/06/2019 12:12 PM
[2019-06-06 12:19] LABS: CREATINE KINASE MB 5.3 ng/mL (0-5.0)
[2019-06-06] MEDS ORDERED: MEROPENEM 500MG/ NS 50ML 50 ML IV ONE (13:15)
[2019-06-06] MEDS ORDERED: ONDANSETRON HCL INJ 2MG/ML 2ML 2 MG/ML VIAL IV PRN (13:30)
[2019-06-06] MEDS ORDERED: ALBUTEROL/IPRATROPIUM 3 ML NEB NEB PRN (13:30)
[2019-06-06] MEDS ORDERED: FUROSEMIDE INJ 10 MG/ML 4 ML VIAL IV ONE (13:45)
[2019-06-06 14:24] LABS: BILIRUBIN,URINE SMALL (NEGATIVE); CLARITY,URINE SL CLOUDY (CLEAR); COLOR,URINE STRAW (YELLOW); KETONES,URINE NEGATIVE (NEGATIVE); LEUKOCYTE ESTERASE ,URINE LARGE (NEGATIVE); NITRITE,URINE NEGATIVE (NEGATIVE); PROTEIN,URINE DIPSTICK 1+ (NEGATIVE); URINE UROBILINOGEN 0.2 mg/dL (0.2 - 1)
--- NOTE | 2019-06-06 14:26 | NUR ---
Clarisse at [facility] notified, per Dr. Barboza for pending HD;
[2019-06-06] MEDS ORDERED: LIDOCAINE HCL 1% LOCAL INJ 20 ML VIAL ONE (14:33)
[2019-06-06 14:38] LABS: BACTERIA,URINE MANY /HPF; RBC,URINE 21-50 /HPF (0-5)
--- NOTE | 2019-06-06 14:58 | NUR ---
IR at bedside performing HD catheter at this time.
[2019-06-06] MEDS ORDERED: HEPARIN SOD (PORCINE) 1000 UNIT/ML SDV ONE (15:03)
--- NOTE | 2019-06-06 15:16 | NUR ---
Dr. Ozuna office notified for HD catheter placement completion, per her request; awaiting call back
--- NOTE | 2019-06-06 15:54 | Diagnostic Imaging Report ---
PROCEDURE: Non-tunneled central venous catheter placement Procedural Personnel Attending physician(s): Carlin Arrington MD Fellow physician(s): None Resident physician(s): None Advanced practice provider(s): None Pre-procedure diagnosis: Acute kidney Injury Post-procedure diagnosis: Same Indication: Performance of hemodialysis Additional clinical history: None Complications: No immediate complications. IMPRESSION: Insertion of right-sided non-tunneled triple-lumen temporary dialysis catheter. Plan: Immediate postprocedural chest radiograph to confirm positioning prior to use. PROCEDURE SUMMARY: - Venous access with ultrasound guidance - Non-tunneled central venous catheter insertion. - Additional procedure(s): None PROCEDURE DETAILS: Pre-procedure Consent: Informed consent for the procedure including risks, benefits and alternatives was obtained and time-out was performed prior to the procedure. Preparation (MIPS): The site was prepared and draped using all elements of maximal sterile barrier technique including sterile gloves, sterile gown, cap, mask, large sterile sheet, sterile ultrasound probe cover, hand hygiene and cutaneous antisepsis with 2% chlorhexidine. Medical reason for site preparation exception (MIPS): Not applicable Anesthesia/sedation Level of anesthesia/sedation: No sedation Access Local anesthesia was administered. The vessel was sonographically evaluated and determined to be patent. Real time ultrasound was used to visualize needle entry into the vessel and a permanent image was stored. Vein accessed: Internal jugular vein Access technique: 18 gauge access needle Catheter placement The access site was dilated and the catheter was placed into the vein over a wire. A sterile dressing was applied. Catheter placed: Bard trialysis Catheter size (Bulgarian): 13 Catheter length (cm): 15 Catheter flush: Heparin (1000 units/mL) Catheter securement technique: Non-absorbable suture Contrast Contrast agent: None Radiation Dose None. Ultrasound guidance only. Additional Details Additional description of procedure: None Equipment details: None Specimens removed: None Estimated blood loss (mL): Less than 10 Standardized report: [email or web address] Attestation Signer name: Carlin Arrington MD I attest that I was present for the entire procedure. I reviewed the stored images and agree with the report as written. Signed by: Carlin Arrington MD on 06/06/2019 3:50 PM
--- NOTE | 2019-06-06 15:55 | NUR ---
Report to MATTIE Nguyen; informed to have HD nurse call Dr. Ozuna for dialysis orders upon arrival
--- NOTE | 2019-06-06 16:00 | NUR ---
Unable to perform vaccine screening upon admission. Pt does not know the information. Will need follow up with family.
--- NOTE | 2019-06-06 16:36 | Diagnostic Imaging Report ---
EXAMINATION: CHEST XRAY LINE PLACEMENT INDICATION: Line placement COMPARISON: Chest radiograph of 06/06/2019 FINDINGS: LINES/TUBES:Interval placement of right IJ nontunneled central venous catheter which terminates near the superior cavoatrial junction. Left chest pacemaker unchanged. EKG leads overlie the chest. LUNGS:The lungs are moderately inflated. There is perihilar fullness and indistinctness of the pulmonary vasculature. There is left basilar opacity silhouetting the left temitope diaphragm. PLEURA:Possible small left pleural effusion. No pneumothorax. MEDIASTINUM:Cardiomediastinal silhouette is stably enlarged. Postoperative changes of prior CABG. BONES/SOFT TISSUES:No acute osseous injury. ABDOMEN:No free air under the diaphragm. IMPRESSION: Interval placement of right IJ nontunneled hemodialysis catheter terminating near the superior cavoatrial junction. Line is ready for immediate use. Cardiomegaly and mild interstitial pulmonary edema. Patchy opacity at the left lung base, most likely subsegmental atelectasis. Signed by: Carlin Arrington MD on 06/06/2019 4:33 PM
--- NOTE | 2019-06-06 18:06 | Diagnostic Imaging Report ---
EXAM: CT of the abdomen and pelvis WITHOUT contrast HISTORY: Discolored urine, swollen testicle, no feeling in leg COMPARISON: None available. TECHNIQUE: The abdomen and pelvis were scanned utilizing a multidetector helical scanner. Coronal and sagittal reformats are available. PROTOCOL: Renal colic IV CONTRAST: None, which limits sensitivity and specificity of evaluation of the soft tissues and vascular structures. ORAL CONTRAST: None, which limits sensitivity and specificity of evaluation of the bowel. RADIATION DOSE: Total DLP: 860.34 mGy*cm Estimated effective dose: (DLP x 0.015 x size factor) Dose modulation, iterative reconstruction, and/or weight based adjustment of the mA/kV was utilized to reduce the radiation dose to as low as reasonably achievable. COMPLICATIONS: None FINDINGS: Partially visualized leads from an implanted cardiac device. LOWER THORAX: Mild left basilar atelectasis. Enlargement of the atria. HEPATOBILIARY: No mass. No biliary dilation. No calcified gallstone. SPLEEN: No splenomegaly. PANCREAS: No focal masses or ductal dilatation. ADRENALS: Diffuse mild enlargement of the left adrenal gland, without a discrete well-defined nodule. KIDNEYS/URETERS: Right: * Malrotation of the right kidney. * Mild to moderate hydroureteronephrosis. * No calcified stone. * Mild perinephric fat stranding. Left: * Mild to moderate hydroureteronephrosis. * A 1.1 cm simple appearing cyst near the superior pole. * A 2.3 cm simple appearing cyst at the interpolar region. * No calcified stone. * Minimal perinephric fat stranding. PELVIC ORGANS/BLADDER: The urinary bladder is decompressed by a Jackson catheter. PERITONEUM / RETROPERITONEUM: No free air or fluid. GI TRACT: On limited evaluation of the gastrointestinal tract, no dilation or wall thickening identified. The appendix appears normal. Scattered colonic diverticuli, most notably the descending and sigmoid colon, without evidence of acute diverticulitis. LYMPH NODES: No pathologically enlarged lymph nodes. VESSELS: Diffuse scattered atherosclerotic vascular calcifications. Left external iliac and right superficial femoral metallic stents. BONES and JOINTS: Multilevel mild to moderate degenerative changes of the axial skeleton. DISH (Diffuse idiopathic skeletal hyperostosis). SOFT TISSUES: A moderate umbilical/periumbilical hernia containing nondilated small bowel. Metallic surgical clips in the right inguinal region. IMPRESSION: 1. Mild to moderate bilateral hydroureteronephrosis. 2. Mild right and minimal left perinephric fat stranding, superimposed pyelonephritis may be a consideration. 3. Colonic diverticulosis. 4. Moderate umbilical/periumbilical hernia containing nondilated small bowel. Signed by: Dr. Gibran White D.O., M.M.M. on 06/06/2019 6:03 PM
[2019-06-06] MEDS ORDERED: XARELTO20 MG PO (18:53)
[2019-06-06] MEDS ORDERED: ARNUITY ELLIPTA INH (18:53)
[2019-06-06] MEDS ORDERED: ALLOPURINOL100 MG PO (18:53)
[2019-06-06] MEDS ORDERED: METOLAZONE5 MG PO (18:53)
[2019-06-06] MEDS ORDERED: LACTULOSE20 GM/30 M PO (18:53)
[2019-06-06] MEDS ORDERED: VENTOLIN HFA18 GM (18:53)
[2019-06-06] MEDS ORDERED: INDOMETHACIN50 MG PO (18:53)
[2019-06-06] MEDS ORDERED: ERGOCAL2500 UNIT PO (18:53)
[2019-06-06] MEDS ORDERED: PANTOPRAZOLE SO40 MG PO (18:53)
[2019-06-06 19:30] LABS: CREATINE KINASE 286 IU/L (30-200)
--- NOTE | 2019-06-06 19:31 | NUR ---
Trialysis cath in good placement and ready for use per radiologist.
[2019-06-06] MEDS ORDERED: HEPARIN SOD (PORCINE) 1000 UNIT/ML SDV IV PRN (19:45)
[2019-06-06] MEDS ORDERED: SODIUM CHLORIDE 0.9% 1000ML 2,000 ML IV PRN (19:45)
[2019-06-06] MEDS ORDERED: ALBUMIN 25% 12.5GM 0.25 GM/ML BTL IV PRN (19:45)
[2019-06-06] MEDS ORDERED: SODIUM CHLORIDE 0.9% 250ML 500 ML IV PRN (19:45)
[2019-06-06] MEDS ORDERED: MANNITOL 25% 12.5GM/50 ML VIAL IV PRN (19:45)
--- NOTE | 2019-06-06 20:00 | NUR ---
Called Dr. Gaffney to ask if pt can resume home medications, MD ordered to resume all home meds.
[2019-06-06] MEDS ORDERED: LISINOPRIL 2.5 MG TAB PO SCH (21:00)
[2019-06-06] MEDS ORDERED: FUROSEMIDE 20 MG TAB PO SCH (21:00)
--- NOTE | 2019-06-06 21:13 | NUR ---
Sheets faxed to [facility] to receive patient's past records.
[2019-06-06] MEDS: INDOMETHACIN 25 MG CAP PO SCH (21:22)
[2019-06-07] VITALS (18 sets, daily range): BP systolic 88–136; BP diastolic 47–78
--- NOTE | 2019-06-07 00:47 | NUR ---
Daphne, cosmetic dentist, notified me that she will not be here to do dialysis until 5 am.
--- NOTE | 2019-06-07 01:40 | Consultation ---
DATE OF CONSULTATION: REASON FOR CONSULTATION: Acute kidney injury. HISTORY OF PRESENT ILLNESS: The patient is a 79-year-old male with past medical history of cirrhosis, umbilical hernia, atrial flutter/fibrillation, CHF, coronary artery disease, status post bypass, and GERD, was admitted with bilateral lower extremity edema, frequent fall, and found to be in acute kidney injury. The patient has history of urinary retention and has been having Jackson catheter since December of 2018. The patient has BPH and awaiting prostate surgery by Dr. Garcia as an outpatient after Cardiology clearance. Per the patient's niece who was at bedside, the patient has been falling repeatedly for the last 3 to 4 weeks and was getting more and more lower extremity edema and getting short of breath. He came to the emergency room for further evaluation. The patient was found to be in acute kidney injury with creatinine of 8.5 and BUN of 86. BNP was 348. Chest x-ray showed cardiomegaly and interstitial pulmonary edema. The patient had a dialysis catheter placed. The patient also had a CT abdomen and pelvis done, that showed bilateral hydronephrosis. The patient has a new Jackson catheter placed and had a 2500 of urine coming out. Currently, the patient feels better after the Jackson catheter was exchanged. PAST MEDICAL HISTORY: As above. PAST SURGICAL HISTORY: Coronary artery bypass. ALLERGIES: NO KNOWN DRUG ALLERGIES. FAMILY HISTORY: No history of any kidney disease. SOCIAL HISTORY: No history of tobacco, alcohol, or intravenous drug abuse. MEDICATIONS: At home, the patient was on lisinopril, KCl, and furosemide with metolazone and metoprolol. REVIEW OF SYSTEMS: GENERAL: Positive fatigue. No fever. No chills. HEENT: No headache. No blurry vision. NECK: No dysphagia. CARDIOVASCULAR: No chest pain. No PND. No orthopnea. RESPIRATORY: Positive shortness of breath. Positive dyspnea on exertion. No cough. No hemoptysis. GI: No nausea, vomiting, diarrhea, constipation. No hematemesis or melena. GENITOURINARY: He had a Jackson catheter with decreased urine output. MUSCULOSKELETAL: Positive ankle swelling. NEUROLOGIC: No numbness, weakness, or tingling. SKIN: No new rash. PHYSICAL EXAMINATION: VITAL SIGNS: Blood pressure 139/74, pulse of 78, respirations 18, temperature 97.8, 100% on room air. GENERAL: The patient is awake and alert, oriented x3, not in apparent distress. HEENT: PERRLA. Extraocular muscles intact. NECK: No elevated JVD. HEART: S1 and S2. Regular rate and rhythm. LUNGS: Clear to auscultate bilaterally with decreased breath sounds at the bases. ABDOMEN: Soft, obese. Bowel sounds positive. EXTREMITIES: 2 to 3 mm bilateral lower extremity swelling. NEUROLOGIC: No focal deficits. No asterixis. LABORATORY DATA: Sodium 136, potassium 4.5, chloride 97, CO2 of 20, BUN 86, creatinine 8.5, glucose is 93, calcium 9.2, magnesium 1.7. LFTs within normal range. BNP 348. INR 1.08. White count 7.1, hemoglobin 11.3, and platelet count is 269. Blood culture and urine culture pending. Chest x-ray as per HPI. CT abdomen and pelvis, [id number] bilateral hydronephrosis, [id number] left perinephric fat stranding, colonic diverticulosis, moderate umbilical hernia. ASSESSMENT AND PLAN: 1. Acute kidney injury, likely secondary to obstructive uropathy. The patient currently has gross volume overload. Urinating well. With elevated BUN and volume overload, we will do 1 session of dialysis today and another session tomorrow and monitor for recovery. 2. Atrial fibrillation/flutter. Heart rate is controlled. The patient follows with Dr. Shafer as an outpatient. 3. Obstructive uropathy/benign prostatic hypertrophy/clogged catheter, status post Jackson exchange. Urinating well. Dr. Garcia following. 4. Hypertension, controlled. Thank you Dr. Gaffney for the consult. Discussed with the niece at bedside. Yu Ozuna MD AFS/MODL /[id number]
[2019-06-07 03:30] LABS: CREATINE KINASE MB 3.5 ng/mL (0-5.0)
[2019-06-07 05:17] LABS: BASOPHILS % 0.2 % (0.0-1.0); EOSINOPHILS # (AUTO) 0.1 (0.0-0.4); EOSINOPHILS % 1.6 % (0.0-6.0); HEMOGLOBIN 9.9 g/dL (14.0-18.0); LYMPHOCYTES # (AUTO) 1.3 (1.0-3.2); LYMPHOCYTES % 24.8 % (18.0-39.1); MEAN CORPUSCULAR HEMOGLOBIN 26.1 pg (28-32); MEAN CORPUSCULAR HGB CONC 31.9 g/dL (31-35); MEAN CORPUSCULAR VOLUME 81.8 fL (81-99); MONOCYTES # (AUTO) 0.8 (0.2-0.8); MONOCYTES % 15.2 % (4.4-11.3); NEUTROPHILS % 57.8 % (38.7-80.0); PLATELET COUNT 236 x10e3/uL (140-360); RED BLOOD COUNT 3.79 x10e6/uL (4.3-5.7); RED CELL DISTRIBUTION WIDTH 15.4 % (11.7-14.4)
[2019-06-07 05:38] LABS: ALBUMIN 3.1 g/dL (3.5-5.0); ANION GAP 17.3 mmol/L (8-16); CALCIUM 9.2 mg/dL (8.4-10.2); CHOL/HDL RATIO 3.1 (3.9-4.7); CREATININE, SERUM 6.67 mg/dL (0.72-1.25); POTASSIUM 3.3 mmol/L (3.5-5.1)
[2019-06-07] MEDS: CHOLECALCIFEROL 1,000 UNIT TAB PO SCH (08:49)
[2019-06-07] MEDS: PRAVASTATIN 20 MG TAB PO SCH (08:49)
[2019-06-07] MEDS: FAMOTIDINE 20 MG TAB PO SCH ×2 (08:49→18:29)
[2019-06-07] MEDS: INDOMETHACIN 25 MG CAP PO SCH (08:49)
[2019-06-07] MEDS: ALLOPURINOL 100 MG TAB PO SCH (08:50)
[2019-06-07] MEDS: ASPIRIN 325 MG TAB PO SCH (08:50)
[2019-06-07] MEDS: PANTOPRAZOLE SOD 40 MG TABEC PO SCH (08:50)
[2019-06-07] MEDS: CLOPIDOGREL BISULFATE 75 MG TAB PO SCH (08:50)
[2019-06-07] MEDS: METOPROLOL TARTRATE 50 MG TAB PO SCH ×2 (08:51→18:29)
[2019-06-07] MEDS ORDERED: POTASSIUM CHLORIDE 10MEQ EA PO SCH (09:00)
[2019-06-07] MEDS ORDERED: RIVAROXABAN 20 MG TABLET PO SCH (09:00)
[2019-06-07] MEDS ORDERED: ERGOCALCIFEROL 50,000 UNIT CAP PO SCH (09:00)
[2019-06-07] MEDS ORDERED: POTASSIUM CHLORIDE 20 MEQ TAB CR PO SCH (09:00)
[2019-06-07] MEDS ORDERED: FUROSEMIDE 20 MG TAB PO SCH (09:53)
[2019-06-07] MEDS: METOLAZONE 5 MG TAB PO SCH (12:00)
[2019-06-07] MEDS: FUROSEMIDE 40 MG TAB PO SCH ×2 (12:25→18:29)
[2019-06-07] MEDS: RIVAROXABAN 15 MG TABLET PO SCH (18:29)
--- NOTE | 2019-06-07 18:56 | NUR ---
Zee Floyd, will attempt to find out pt's immunization status and inform nursing staff tomorrow.
[2019-06-08] VITALS (21 sets, daily range): BP systolic 81–141; BP diastolic 36–71
[2019-06-08 05:25] LABS: ANION GAP 15.5 mmol/L (8-16); CALCIUM 9.3 mg/dL (8.4-10.2); CREATININE, SERUM 4.26 mg/dL (0.72-1.25); MAGNESIUM 1.5 MG/DL (1.3-2.1); POTASSIUM 3.5 mmol/L (3.5-5.1)
[2019-06-08] MEDS: FAMOTIDINE 20 MG TAB PO SCH ×2 (06:56→17:23)
[2019-06-08] MEDS: ASPIRIN 325 MG TAB PO SCH (08:00)
[2019-06-08] MEDS: FUROSEMIDE 40 MG TAB PO SCH ×2 (08:01→17:41)
[2019-06-08] MEDS: METOPROLOL TARTRATE 50 MG TAB PO SCH (08:01)
[2019-06-08] MEDS: CLOPIDOGREL BISULFATE 75 MG TAB PO SCH (08:02)
[2019-06-08] MEDS: PRAVASTATIN 20 MG TAB PO SCH (08:02)
[2019-06-08] MEDS: CHOLECALCIFEROL 1,000 UNIT TAB PO SCH (08:02)
[2019-06-08] MEDS: PANTOPRAZOLE SOD 40 MG TABEC PO SCH (08:02)
[2019-06-08] MEDS: ALLOPURINOL 100 MG TAB PO SCH (08:02)
--- NOTE | 2019-06-08 08:34 | NUR ---
PAGED DR ELLIOTT REGARDING HYPOTENSION
[2019-06-08] MEDS ORDERED: SODIUM CHLORIDE 0.9% 250ML 250 ML IV ONE ×2 (08:44→08:45)
[2019-06-08] MEDS ORDERED: RIVAROXABAN 20 MG TABLET PO SCH (09:00)
--- NOTE | 2019-06-08 09:33 | NUR ---
patient with periods of apnea when sleeping. O2 sats drop to 86% for a few seconds
[2019-06-08] MEDS: METOLAZONE 5 MG TAB PO SCH (12:13)
--- NOTE | 2019-06-08 12:51 | NUR ---
patient out of bed to chair with minimum assistance
--- NOTE | 2019-06-08 13:28 | NUR ---
WOUND CARE SCREENING DONE 79 YO MALE R/T 14 ALMA SCORE NO ABNORMAL FINDINGS NOTED DURING TOTAL SKIN ASSESSMENT PATIENT STATES ABILITY TO TURN AND OFFLOAD NURSING CONTINUES TO MAINTAIN MODERATE PUP INTERVENTIONS AND ALTERNATING PRESSURE SURFACE NURSING TO CONSULT WOUND CARE FOR ANY FUTURE SKIN CARE OR INTERVENTION NEEDS Addendum: 06/08/19 at 1329 by Javad Moses RN Amended: Links added.
[2019-06-08] MEDS ORDERED: METOPROLOL TARTRATE 50 MG TAB PO SCH (17:00)
[2019-06-08] MEDS: RIVAROXABAN 15 MG TABLET PO SCH (17:41)
[2019-06-08] MEDS: METOPROLOL TARTRATE 25 MG TAB PO SCH (17:41)
[2019-06-08] MEDS: LACTULOSE SYRUP 20 GM/30 ML UDC PO PRN (21:14)
[2019-06-09] VITALS (8 sets, daily range): BP systolic 115–146; BP diastolic 39–83
[2019-06-09] MEDS: FAMOTIDINE 20 MG TAB PO SCH ×2 (07:40→16:11)
[2019-06-09] MEDS: CHOLECALCIFEROL 1,000 UNIT TAB PO SCH (09:06)
[2019-06-09] MEDS: METOPROLOL TARTRATE 25 MG TAB PO SCH ×2 (09:06→18:09)
[2019-06-09] MEDS: ALLOPURINOL 100 MG TAB PO SCH (09:06)
[2019-06-09] MEDS: PRAVASTATIN 20 MG TAB PO SCH (09:06)
[2019-06-09] MEDS: FUROSEMIDE 40 MG TAB PO SCH ×2 (09:06→16:11)
[2019-06-09] MEDS: PANTOPRAZOLE SOD 40 MG TABEC PO SCH (09:06)
[2019-06-09 09:35] LABS: BASOPHILS % 0.7 % (0.0-1.0); EOSINOPHILS # (AUTO) 0.2 (0.0-0.4); EOSINOPHILS % 4.2 % (0.0-6.0); HEMATOCRIT 34.3 % (38.2-49.6); HEMOGLOBIN 10.9 g/dL (14.0-18.0); LYMPHOCYTES # (AUTO) 1.5 (1.0-3.2); LYMPHOCYTES % 27.4 % (18.0-39.1); MEAN CORPUSCULAR HEMOGLOBIN 26.2 pg (28-32); MEAN CORPUSCULAR HGB CONC 31.8 g/dL (31-35); MEAN CORPUSCULAR VOLUME 82.5 fL (81-99); MONOCYTES # (AUTO) 0.6 (0.2-0.8); MONOCYTES % 11.4 % (4.4-11.3); NEUTROPHILS # (AUTO) 3.1 (2.1-6.9); NEUTROPHILS % 55.8 % (38.7-80.0); PLATELET COUNT 267 x10e3/uL (140-360); RED BLOOD COUNT 4.16 x10e6/uL (4.3-5.7); RED CELL DISTRIBUTION WIDTH 15.3 % (11.7-14.4)
[2019-06-09 09:52] LABS: ANION GAP 12.9 mmol/L (8-16); CALCIUM 9.5 mg/dL (8.4-10.2); CREATININE, SERUM 2.75 mg/dL (0.72-1.25)
[2019-06-09 09:53] LABS: POTASSIUM 2.9 mmol/L (3.5-5.1)
[2019-06-09] MEDS ORDERED: POTASSIUM CHLORIDE 20 MEQ TAB CR PO NR ×2 (10:15→16:00)
[2019-06-09] MEDS: METOLAZONE 5 MG TAB PO SCH (12:00)
[2019-06-09] MEDS: FLUCONAZOLE 100 MG TAB PO SCH (12:14)
[2019-06-09] MEDS ORDERED: POTASSIUM CHLORIDE 10MEQ EA PO NR (15:00)
[2019-06-09] MEDS: RIVAROXABAN 15 MG TABLET PO SCH (16:12)
--- NOTE | 2019-06-09 20:47 | NUR ---
Cardiology Consult Dictation# [id number]
[2019-06-10] VITALS (8 sets, daily range): BP systolic 116–157; BP diastolic 58–92
--- NOTE | 2019-06-10 02:12 | Consultation ---
DATE OF CONSULTATION: 06/09/2019 Cardiology Consultation REQUESTING PHYSICIAN: Hussein Gaffney MD. REASON FOR CONSULTATION: Preoperative evaluation. HISTORY OF PRESENT ILLNESS: This is a 79-year-old man with peripheral arterial disease, atrial fibrillation status post Medtronic permanent pacemaker, coronary artery disease status post bypass with occlusion of all bypass grafts, congestive heart failure with preserved LVEF on last echocardiogram at the office, atrial fibrillation/flutter, and cirrhosis, who presents to the [facility] for weakness and falling for the last 3 days. The patient denies any chest pain, shortness of breath, or palpitations. He denies any orthopnea, PND, lightheadedness, or dizziness, but does endorse lower extremity edema. Evaluation revealed acute kidney injury with creatinine of 8.5. The patient therefore had dialysis catheter placement and initiation on hemodialysis by Nephrology. CT of the abdomen and pelvis revealed bilateral hydronephrosis and the patient is planned for a TURP by Urology. REVIEW OF SYSTEMS: Negative except as per HPI. PAST MEDICAL HISTORY: 1. Coronary artery disease status post bypass with known occlusion of all bypass grafts. 2. Congestive heart failure with preserved LVEF on echo one year prior. 3. Atrial fibrillation/flutter. 4. Status post Medtronic permanent pacemaker. 5. Peripheral arterial disease. 6. Cirrhosis. PAST SURGICAL HISTORY: CABG. ALLERGIES: NO KNOWN DRUG ALLERGIES. MEDICATIONS: Please see medication list. SOCIAL HISTORY: No tobacco, alcohol, or illicit drugs. FAMILY HISTORY: Noncontributory to current illness. PHYSICAL EXAMINATION: VITAL SIGNS: Temperature 97.7 degrees, pulse 60, respiratory rate 16, blood pressure 128/89, and oxygen saturation 95% on room air. GENERAL: Obese gentleman in no acute distress. Awake and alert. HEENT: Normocephalic, atraumatic. Pupils equal. No scleral icterus. NECK: Supple. No thyromegaly or cervical lymphadenopathy. No carotid bruits. LUNGS: Clear to auscultation bilaterally. No wheezes or crackles. HEART: Normal rate. Regular rhythm. No murmur. Normal S1, S2. ABDOMEN: Soft, nontender. EXTREMITIES: 1+ pitting edema. NEUROLOGIC: Nonfocal exam. LABORATORY DATA: WBC 5.52, hemoglobin 10.9, hematocrit 34.3, platelets 267. Sodium 132, potassium 2.9, chloride 91, CO2 of 31, BUN 31, creatinine 2.75. TELEMETRY: V-paced. IMAGING: Chest x-ray, cardiomegaly, interstitial pulmonary edema. IMPRESSION: 1. Acute kidney injury, suspect secondary to obstructive uropathy. 2. Coronary artery disease status post bypass with known occlusion of all bypass grafts and moderate coronary artery disease of the [place] vessels on left heart catheterization from 2014. 3. Peripheral arterial disease. 4. Atrial fibrillation/flutter, status post Medtronic permanent pacemaker. 5. Congestive heart failure with preserved systolic function on last echocardiogram in 2018. 6. Cirrhosis. RECOMMENDATIONS: Repeat echocardiogram. Continue home cardiac medications, specifically start metoprolol and pravastatin. Antiplatelets and anticoagulants are currently on hold due to planned TURP. Hold CELESTE given acute renal failure requiring hemodialysis. Monitor the patient closely on telemetry. Further recommendations pending test results. Thank you for this consult. We will continue to follow. Taisha Mahoney MD ABS/MODL /[id number]
[2019-06-10 04:54] LABS: BASOPHILS % 0.7 % (0.0-1.0); EOSINOPHILS # (AUTO) 0.2 (0.0-0.4); HEMATOCRIT 38.6 % (38.2-49.6); HEMOGLOBIN 12.3 g/dL (14.0-18.0); LYMPHOCYTES % 34.4 % (18.0-39.1); MEAN CORPUSCULAR HEMOGLOBIN 26.3 pg (28-32); MEAN CORPUSCULAR HGB CONC 31.9 g/dL (31-35); MEAN CORPUSCULAR VOLUME 82.5 fL (81-99); MONOCYTES # (AUTO) 0.9 (0.2-0.8); MONOCYTES % 14.8 % (4.4-11.3); NEUTROPHILS # (AUTO) 2.6 (2.1-6.9); NEUTROPHILS % 45.1 % (38.7-80.0); PLATELET COUNT 315 x10e3/uL (140-360); RED BLOOD COUNT 4.68 x10e6/uL (4.3-5.7); RED CELL DISTRIBUTION WIDTH 15.3 % (11.7-14.4)
[2019-06-10 05:14] LABS: ANION GAP 16.3 mmol/L (8-16); CALCIUM 9.9 mg/dL (8.4-10.2); CREATININE, SERUM 2.46 mg/dL (0.72-1.25); POTASSIUM 3.3 mmol/L (3.5-5.1)
--- NOTE | 2019-06-10 06:15 | NUR ---
RECEIVED PT TO UNIT ROOM 212 VIA HOSPITAL BED ACCOMPANIED BY ICU NURSE.PT AAO X 3.NO S/S OF DISTRESS NOTED.RESPIRATIONS EVEN/NON LABORED.VITAL SIGNS TAKEN,WNL.PT'S IV TO RIGHT AC 18 G NOTED LEAKING,IV CATH INTACT UP ON REMOVAL.DRESSING APPLIED.PT HAS RIGHT IJ INTACT.BED POSITIONED IN THE LOWEST/LOCKED.INSTRUCTED PT TO CALL FOR ASSISTANCE NEEDED BY PRESSING CALL LIGHT.PT VERBALIZED UNDERSTANDING.CALL LIGHT WITHIN EASY REACH.
[2019-06-10] MEDS: FAMOTIDINE 20 MG TAB PO SCH ×2 (08:20→16:59)
[2019-06-10] MEDS: METOPROLOL TARTRATE 25 MG TAB PO SCH ×2 (08:20→17:00)
[2019-06-10] MEDS: PRAVASTATIN 20 MG TAB PO SCH (08:20)
[2019-06-10] MEDS: FLUCONAZOLE 100 MG TAB PO SCH (08:20)
[2019-06-10] MEDS: FUROSEMIDE 40 MG TAB PO SCH ×2 (08:20→17:00)
[2019-06-10] MEDS: CHOLECALCIFEROL 1,000 UNIT TAB PO SCH (08:21)
[2019-06-10] MEDS: PANTOPRAZOLE SOD 40 MG TABEC PO SCH (08:21)
[2019-06-10] MEDS: ALLOPURINOL 100 MG TAB PO SCH (08:21)
--- NOTE | 2019-06-10 08:40 | NUR ---
Notified Dr Edmond regarding K-3.3, N order to give potassium cl po 40 meq X1 dose
[2019-06-10] MEDS ORDERED: POTASSIUM CHLORIDE 20 MEQ TAB CR PO NR (09:06)
[2019-06-10] MEDS ORDERED: MAGNESIUM OXIDE 400 MG TAB PO SCH (10:00)
[2019-06-10] MEDS ORDERED: MAGNESIUM SULFATE 2GM/50ML IV ONE (10:45)
[2019-06-10] MEDS ORDERED: MAGNESIUM SULFATE 2GM/50ML 50 ML IV ONE (11:00)
--- NOTE | 2019-06-10 15:55 | NUR ---
Visit made by the Spiritual Care Department Pastoral Visitor, Matt Hewitt. PV provided pastoral presence, hospitality, communion, and supportive listening. Pastoral Visitor informed pt/family of the scope of [employer] [facility] and availability. JOSH MITTAL Paving Foreman Spiritual Care Department O: [phone] Pager: [phone] ([phone] number calling from)
[2019-06-10] MEDS: MAGNESIUM OXIDE 400 MG TAB PO SCH (17:00)
[2019-06-10] MEDS: RIVAROXABAN 15 MG TABLET PO SCH (17:00)
--- NOTE | 2019-06-10 23:26 | Progress Note ---
DATE: 06/10/2019 Cardiology Progress Note SUBJECTIVE: The patient denies chest pain or shortness of breath. He reports he is able to walk a block without difficulty. OBJECTIVE: VITAL SIGNS: Temperature 96.8 degrees, pulse 63, respiratory rate 20, blood pressure 157/66, oxygen saturation 99% on room air. GENERAL: Awake and alert, in no acute distress. Obese. LUNGS: Clear to auscultation bilaterally. No wheeze or crackles. CARDIAC: Normal rate, regular rhythm. No murmur. Normal S1 and S2. ABDOMEN: Soft, nontender. EXTREMITIES: 1+ pitting edema. CARDIAC MEDICATIONS: Metoprolol succinate 25 mg p.o. b.i.d., furosemide 80 mg p.o. b.i.d., rivaroxaban 15 mg p.o. daily. LABORATORY DATA: WBC 5.73, hemoglobin 12.3, hematocrit 38.6, and platelets 315. Sodium 138, potassium 3.3, chloride 96, CO2 of 29, BUN 46, creatinine 2.46. TELEMETRY: V paced. IMPRESSION: 1. Acute kidney injury, likely secondary to obstructive uropathy, improving. 2. Coronary artery disease, status post bypass with known occlusion of all bypass grafts and moderate coronary artery disease of the [place] vessel on left heart catheterization from 2014. 3. Peripheral arterial disease. 4. Atrial fibrillation/flutter, status post Medtronic permanent pacemaker. 5. Congestive heart failure with preserved LV systolic function. RECOMMENDATIONS: Continue current cardiac medications. Resume pravastatin. Antiplatelets and anticoagulants are currently on hold due to planned TURP as is CELESTE inhibitor given his acute renal failure requiring temporary hemodialysis. Monitor the patient closely on telemetry. Thank you for this consult. We will continue to follow. Taisha Mahoney MD ABS/MODL /[id number]
[2019-06-11] VITALS (8 sets, daily range): BP systolic 98–144; BP diastolic 56–72
[2019-06-11 06:37] LABS: BASOPHILS % 0.7 % (0.0-1.0); EOSINOPHILS # (AUTO) 0.2 (0.0-0.4); EOSINOPHILS % 3.9 % (0.0-6.0); HEMATOCRIT 39.7 % (38.2-49.6); HEMOGLOBIN 12.7 g/dL (14.0-18.0); LYMPHOCYTES # (AUTO) 2.1 (1.0-3.2); LYMPHOCYTES % 35.1 % (18.0-39.1); MEAN CORPUSCULAR HEMOGLOBIN 26.6 pg (28-32); MEAN CORPUSCULAR VOLUME 83.2 fL (81-99); MONOCYTES # (AUTO) 0.8 (0.2-0.8); MONOCYTES % 12.8 % (4.4-11.3); NEUTROPHILS # (AUTO) 2.8 (2.1-6.9); NEUTROPHILS % 46.7 % (38.7-80.0); PLATELET COUNT 334 x10e3/uL (140-360); RED BLOOD COUNT 4.77 x10e6/uL (4.3-5.7); RED CELL DISTRIBUTION WIDTH 15.5 % (11.7-14.4)
[2019-06-11 06:44] LABS: ANION GAP 15.4 mmol/L (8-16); CREATININE, SERUM 2.23 mg/dL (0.72-1.25); MAGNESIUM 1.5 MG/DL (1.3-2.1); POTASSIUM 3.4 mmol/L (3.5-5.1)
--- NOTE | 2019-06-11 07:00 | NUR ---
RCD PT AT BED PT IS ALERT AND ORIENTED PT RESTING ON BED IV PATENT BY SALINE FLUSH BED LOW AND LOCKED CALL LIGHT IN REACH
--- NOTE | 2019-06-11 07:15 | NUR ---
REPORT GIVEN TO ONCOMING NURSE,WALKING ROUNDS MADE.PT SITTING UP IN CHAIR WITH NO S/S OF DISTRESS.CALL LIGHT WITHIN EASY REACH.
[2019-06-11] MEDS: FAMOTIDINE 20 MG TAB PO SCH ×2 (07:30→16:30)
[2019-06-11] MEDS ORDERED: ONDANSETRON HCL 4 MG ORAL DISINTEGRATING TAB PO PRN (08:30)
[2019-06-11] MEDS: MAGNESIUM OXIDE 400 MG TAB PO SCH ×2 (09:00→17:00)
[2019-06-11] MEDS: CHOLECALCIFEROL 1,000 UNIT TAB PO SCH (09:00)
[2019-06-11] MEDS: FUROSEMIDE 40 MG TAB PO SCH ×2 (09:00→17:00)
[2019-06-11] MEDS: METOPROLOL TARTRATE 25 MG TAB PO SCH ×2 (09:00→17:00)
[2019-06-11] MEDS: ALLOPURINOL 100 MG TAB PO SCH (09:00)
[2019-06-11] MEDS: PANTOPRAZOLE SOD 40 MG TABEC PO SCH (09:00)
[2019-06-11] MEDS: PRAVASTATIN 20 MG TAB PO SCH (09:00)
[2019-06-11] MEDS: FLUCONAZOLE 100 MG TAB PO SCH (09:00)
--- NOTE | 2019-06-11 10:00 | NUR ---
PAGED DR LAW TO TALK ABOUT CARDIAC CLEARANCE SINCE DR MORAN IS WAITING FOR TO DO THE PROCEDURE
--- NOTE | 2019-06-11 12:00 | NUR ---
AGAIN PAGED DR LAW
--- NOTE | 2019-06-11 15:00 | NUR ---
PAGED DR ESPINAL CELL AND LEFT THE MESSAGE
[2019-06-11] MEDS: RIVAROXABAN 15 MG TABLET PO SCH (17:00)
--- NOTE | 2019-06-11 18:03 | NUR ---
AGAIN PAGED DR LAW AND LEFT THE MESSAGE
--- NOTE | 2019-06-11 18:15 | NUR ---
DR LAW RETURNED THE CALL HE SAID HE NNED TO CHECK THE RECORDS AND HE WILL CALL BACK
--- NOTE | 2019-06-11 18:26 | Progress Note ---
DATE: 06/11/2019 Cardiology Progress Note SUBJECTIVE: No major events overnight. OBJECTIVE: VITAL SIGNS: Temperature afebrile, pulse 60, respiratory rate 17, blood pressure 144/62, and saturating 96% on room air. GENERAL: Elderly man, in no acute distress. CARDIOVASCULAR: Irregular rate and rhythm. No murmurs, rubs, or gallops. LUNGS: Clear to auscultation bilaterally. ABDOMEN: Soft, nontender, nondistended. NEURO AND PSYCH: Alert and oriented. INPATIENT MEDICATIONS: Reviewed. LABORATORY DATA: Reviewed. TELEMETRY DATA: Reviewed, shows a paced rhythm. ASSESSMENT AND PLAN: 1. Acute kidney injury, secondary to obstructive uropathy, improving. 2. Coronary artery disease, status post bypass. 3. Peripheral arterial disease. 4. Atrial fibrillation/atrial flutter, status post permanent pacemaker placement. 5. Congestive heart failure with preserved LV ejection fraction. RECOMMENDATIONS: Continue current cardiovascular medications. Hold CELESTE inhibitors given acute kidney injury. Stable from cardiovascular standpoint, otherwise. Thank you for this consult. We will continue to follow. MD CONY Duarte/MODL /[id number]
--- NOTE | 2019-06-11 18:59 | NUR ---
PT RESTING ON BED BED SIDE REPORT GIVEN TO ONCOMING NURSE
--- NOTE | 2019-06-11 19:00 | NUR ---
received report from day nurse. patient is resting comfortably in bed. bed is in lowest position and call fernandez is within reach. will continue to monitor patient.
--- NOTE | 2019-06-11 20:00 | NUR ---
Dr Jarquin called back and gave cardiac clearance for patient to go ahead with whatever procedures Dr Garcia has planned.
[2019-06-12] VITALS (7 sets, daily range): BP systolic 99–144; BP diastolic 56–80
--- NOTE | 2019-06-12 07:00 | NUR ---
BEDSIDE SHIFT REPORT RECEIVED FROM SLITTER AND REWINDER MACHINE OPERATOR RN. PT DENIES NEEDS AT THIS TIME.
--- NOTE | 2019-06-12 07:05 | NUR ---
report given to day nurse. patient is resting comfortably in bed. bed is in lowest position and call fernandez is within reach.
[2019-06-12] MEDS: MAGNESIUM OXIDE 400 MG TAB PO SCH ×2 (08:18→17:01)
[2019-06-12] MEDS: FAMOTIDINE 20 MG TAB PO SCH ×2 (08:18→17:00)
[2019-06-12] MEDS: FLUCONAZOLE 100 MG TAB PO SCH (08:18)
[2019-06-12] MEDS: METOPROLOL TARTRATE 25 MG TAB PO SCH ×2 (08:18→17:01)
[2019-06-12] MEDS: PANTOPRAZOLE SOD 40 MG TABEC PO SCH (08:18)
[2019-06-12] MEDS: PRAVASTATIN 20 MG TAB PO SCH (08:18)
[2019-06-12] MEDS: CHOLECALCIFEROL 1,000 UNIT TAB PO SCH (08:18)
[2019-06-12] MEDS: FUROSEMIDE 40 MG TAB PO SCH ×2 (08:18→17:00)
[2019-06-12] MEDS: ALLOPURINOL 100 MG TAB PO SCH (08:19)
--- NOTE | 2019-06-12 11:52 | NUR ---
CM to pt's bedside to perform DPA. Pt states he lives alone. Verified address on file. Pt states he uses a walker and cane. Does not have home health currently. States he was a [place] last week for same. States no medications were changed on discharged. He followed up with PCP Dr. Bahman Solis after discharging and no changes were made to medications then either. States emergency contact is girlfriend Barbara Mcnulty [phone]. Pt cut assessment short. States he didn't want to answer any more questions. CM left business card for pt to call with any questions/concerns.
--- NOTE | 2019-06-12 15:50 | NUR ---
Nutrition Screen Note RD Recommendation for Physician: - Continue current diet Plan of Care: RD following, monitoring for tolerance and adequacy Nutrition reason for involvement: LOS Primary Diagnose(s): acute renal failure, A-fib PMH: CAD, CABG, PAD, CHF Ht: 69 in Wt: 248 lb BMI: 36.6 kg/m2 IBW: [address] Assessment: (06/12) 79 YOM admitted for acute renal failure due to obstructive uropathy per MD notes. Pt discussed during am rounds, TURP planned- no date yet. Pt seen today for LOS. Pt reports good appetite and po intake, currently and [employer]. Pt denies any N/V/C/D. Pt denies wt loss, can not recall UBW. Pt with no questions or concerns at time of visit. Chart reviewed. Labs and meds reviewed. Will monitor and continue to follow. Current Diet: Renal Malnutrition Evaluation (06/12/19) The patient does not meet criteria for a specified degree of malnutrition at this time. Will re-evaluate at follow-up as appropriate. Diet Education Needs Assessment: Diet education not indicated. Diet tolerance: tolerating Nutrition Care Level: low Signed: Tere Nicolas RD, LD, [facility]
[2019-06-12] MEDS: RIVAROXABAN 15 MG TABLET PO SCH (17:00)
--- NOTE | 2019-06-12 18:49 | Progress Note ---
DATE: 06/12/2019 Cardiology Progress Note SUBJECTIVE: The patient denies chest pain or shortness of breath. OBJECTIVE: VITAL SIGNS: Temperature 97.6 degrees, pulse 64, respiratory rate 20, blood pressure 117/56, and oxygen saturation 100% on room air. GENERAL: Elderly man, in no acute distress. Awake and alert. LUNGS: Clear to auscultation bilaterally. No wheezes or crackles. CARDIOVASCULAR: Normal rate. Regular rhythm. No murmur. Normal S1 and S2. ABDOMEN: Soft and nontender. EXTREMITIES: 1+ pitting edema. CARDIAC MEDICATIONS: Metoprolol tartrate 25 mg p.o. b.i.d., furosemide 80 mg p.o. b.i.d., and Xarelto 15 mg p.o. daily. LABORATORY DATA: None today. TELEMETRY: V-paced. IMPRESSION: 1. Acute kidney injury secondary to obstructive uropathy, improving. 2. Coronary artery disease, status post bypass. 3. Peripheral arterial disease. 4. Atrial fibrillation/flutter, status post permanent pacemaker. 5. Congestive heart failure with preserved left ventricular ejection fraction. RECOMMENDATIONS: Continue current cardiac medications. CELESTE inhibitor currently on hold due to acute kidney injury. Blood pressure is reasonably controlled for age. Monitor the patient on telemetry. The patient is stable from a cardiac standpoint. No further cardiac evaluation is indicated at this time. Thank you for this consult. We will continue to follow. Taisha Mahoney MD ABS/MODL /[id number]
--- NOTE | 2019-06-12 19:20 | NUR ---
Patient visited in room during nursing rounds. Patient alert and oriented x3. No distress or discomfort noted. Jackson in place for urinary retention. Right IJ dialysis with pig tail IV in place. On bedrest and on 1.5L fluid restriction. Condition stable. Call fernandez within reach.
[2019-06-13] VITALS (9 sets, daily range): BP systolic 98–149; BP diastolic 56–74
[2019-06-13 06:47] LABS: BASOPHILS % 0.5 % (0.0-1.0); EOSINOPHILS # (AUTO) 0.2 (0.0-0.4); EOSINOPHILS % 3.2 % (0.0-6.0); HEMATOCRIT 40.9 % (38.2-49.6); HEMOGLOBIN 12.9 g/dL (14.0-18.0); LYMPHOCYTES # (AUTO) 1.9 (1.0-3.2); LYMPHOCYTES % 30.6 % (18.0-39.1); MEAN CORPUSCULAR HEMOGLOBIN 26.1 pg (28-32); MEAN CORPUSCULAR HGB CONC 31.5 g/dL (31-35); MEAN CORPUSCULAR VOLUME 82.8 fL (81-99); MONOCYTES # (AUTO) 0.8 (0.2-0.8); MONOCYTES % 13.6 % (4.4-11.3); NEUTROPHILS # (AUTO) 3.2 (2.1-6.9); NEUTROPHILS % 51.6 % (38.7-80.0); PLATELET COUNT 311 x10e3/uL (140-360); RED BLOOD COUNT 4.94 x10e6/uL (4.3-5.7); RED CELL DISTRIBUTION WIDTH 15.1 % (11.7-14.4)
--- NOTE | 2019-06-13 07:00 | NUR ---
BEDSIDE SHIFT REPORT RECEIVED FROM BREAKER MACHINE TENDER RN. PT DENIES NEEDS AT THIS TIME.
[2019-06-13 07:03] LABS: CALCIUM 10.2 mg/dL (8.4-10.2); CREATININE, SERUM 2.12 mg/dL (0.72-1.25)
[2019-06-13] MEDS: FLUCONAZOLE 100 MG TAB PO SCH (09:01)
[2019-06-13] MEDS: FAMOTIDINE 20 MG TAB PO SCH ×2 (09:01→17:42)
[2019-06-13] MEDS: METOPROLOL TARTRATE 25 MG TAB PO SCH ×2 (09:01→17:43)
[2019-06-13] MEDS: FUROSEMIDE 40 MG TAB PO SCH ×2 (09:01→17:42)
[2019-06-13] MEDS: MAGNESIUM OXIDE 400 MG TAB PO SCH ×2 (09:01→17:43)
[2019-06-13] MEDS: PRAVASTATIN 20 MG TAB PO SCH (09:01)
[2019-06-13] MEDS: PANTOPRAZOLE SOD 40 MG TABEC PO SCH (09:01)
[2019-06-13] MEDS: CHOLECALCIFEROL 1,000 UNIT TAB PO SCH (09:02)
[2019-06-13] MEDS: ALLOPURINOL 100 MG TAB PO SCH (09:02)
[2019-06-13] MEDS ORDERED: POTASSIUM CHLORIDE 20 MEQ TAB CR PO ONE (10:25)
[2019-06-13] MEDS: RIVAROXABAN 15 MG TABLET PO SCH (17:00)
--- NOTE | 2019-06-13 20:32 | Progress Note ---
DATE: 06/13/2019 Cardiology Progress Note SUBJECTIVE: No major events overnight. OBJECTIVE: VITAL SIGNS: Temperature afebrile, pulse 61, respiratory rate 20, blood pressure 134/74, and saturating 97% on room air. GENERAL: man, in no acute distress. CARDIOVASCULAR: Regular rate and rhythm. No murmurs, rubs, or gallops. LUNGS: Clear to auscultation bilaterally. ABDOMEN: Soft, nontender, and nondistended. NEURO AND PSYCH: Alert and oriented to person, place, and time. Normal affect. INPATIENT MEDICATIONS: Reviewed. LABORATORY DATA: Reviewed. TELEMETRY DATA: Reviewed shows paced rhythm. ASSESSMENT/PLAN: 1. Acute kidney injury secondary to obstructive uropathy, now improving. 2. Coronary artery disease, status post bypass. 3. Peripheral arterial disease. 4. History of atrial fibrillation, atrial flutter, status post permanent pacemaker placement. 5. Congestive heart failure. Preserved LV ejection fraction. RECOMMENDATIONS: Continue current cardiovascular medications. Holding CELESTE inhibitors given acute kidney injury and intermittent hypotension. The patient is stable from cardiovascular standpoint and will be moderate risk for cardiovascular events for urological surgery. No further testing is recommended at this time. Okay to proceed with surgery. Thank you for this consult. We will continue to follow. MD CONY Duarte/LATISHA /[id number]
[2019-06-14 05:54] VITALS: BP 124/80
--- NOTE | 2019-06-14 07:00 | NUR ---
BEDSIDE SHIFT REPORT RECEIVED FROM THE RADAR OPERATOR RN. PT IS ON NPO. EDUCATED PT ABOUT FALL PRECAUTIONS. BED IS LOW AND LOCKED. SIDE RAILS X2. CALL LIGHT WITH IN EASY REACH. INFORMED PT TO USE CALL LIGHT FOR ANY NEEDS. PT VERBALIZED UNDERSTANDING. PT DENIES NEEDS AT THIS TIME.
[2019-06-14] MEDS: FAMOTIDINE 20 MG TAB PO SCH ×2 (07:30→17:06)
--- NOTE | 2019-06-14 07:30 | NUR ---
PAGED DR. LEPE. NEW ORDER FOR BMP STAT. PAGED LAB AND INFORMED THE SAME.
[2019-06-14 08:34] VITALS: BP 116/89
[2019-06-14 08:39] VITALS: BP 116/89
[2019-06-14] MEDS: FUROSEMIDE 40 MG TAB PO SCH ×2 (09:00→17:06)
[2019-06-14] MEDS: PRAVASTATIN 20 MG TAB PO SCH ×2 (09:00→14:43)
[2019-06-14] MEDS: MAGNESIUM OXIDE 400 MG TAB PO SCH ×2 (09:00→17:07)
[2019-06-14] MEDS: METOPROLOL TARTRATE 25 MG TAB PO SCH ×2 (09:00→17:07)
[2019-06-14 09:17] LABS: ANION GAP 17.2 mmol/L (8-16); CALCIUM 10.4 mg/dL (8.4-10.2); CREATININE, SERUM 2.56 mg/dL (0.72-1.25); POTASSIUM 3.2 mmol/L (3.5-5.1)
--- NOTE | 2019-06-14 09:40 | NUR ---
STAT BMP RESULTS CAME. PAGED DR. LEPE AND INFORMED K LEVEL. PT IS ON NPO. TURP TODAY.
--- NOTE | 2019-06-14 10:00 | NUR ---
PT OFF UNIT FOR PROCEDURE IN SAFE CONDITION.
[2019-06-14] MEDS ORDERED: IOPAMIDOL 300MG/ML 50ML INFUS..BTL IV ONE (10:34)
[2019-06-14] MEDS ORDERED: POTASSIUM CHLORIDE 20MEQ/100ML 200 ML IV ONE (11:45)
[2019-06-14] MEDS ORDERED: B&O 60MG R/S 60 MG SUPP PR ONE (11:52)
[2019-06-14] MEDS ORDERED: D5.45%NS/KCL 20MEQ 1,000 ML IV SCH ×2 (12:02→20:00)
[2019-06-14] MEDS ORDERED: SODIUM CHLORIDE 0.9% 250ML IRRIG IR SCH (12:15)
[2019-06-14] MEDS ORDERED: ONDANSETRON HCL INJ 2MG/ML 2ML 2 MG/ML VIAL IV PRN (12:15)
[2019-06-14] MEDS ORDERED: MORPHINE SULFATE INJ 4 MG/ML INJ 1ML ONE (12:29)
[2019-06-14] MEDS ORDERED: LABETALOL HCL 0 ML ONE (12:32)
[2019-06-14] MEDS ORDERED: FENTANYL CITRATE/PF 100MCG/2 ML INJ ONE ×2 (12:40→18:41)
--- NOTE | 2019-06-14 12:50 | NUR ---
PT IS BACK TO UNIT. AAOX3. BED ALARM IS ON. PT DENIES NEEDS AT THIS TIME.
[2019-06-14 13:00] VITALS: BP 137/70
--- NOTE | 2019-06-14 14:00 | NUR ---
CONTINUOS BLADDER IRRIGATION FOR THE PT. PT DENIES NEEDS AT THIS TIME.
[2019-06-14] MEDS: ALLOPURINOL 100 MG TAB PO SCH (14:43)
[2019-06-14] MEDS: CHOLECALCIFEROL 1,000 UNIT TAB PO SCH (14:43)
[2019-06-14] MEDS: PANTOPRAZOLE SOD 40 MG TABEC PO SCH (14:43)
[2019-06-14] MEDS: FLUCONAZOLE 100 MG TAB PO SCH (14:43)
--- NOTE | 2019-06-14 15:00 | NUR ---
DR. MORAN AT BEDSIDE. MOVE PT TO MED SURGE [address] CHATMANSALESPERSON FASHION ACCESSORIES NOTIFIED.
--- NOTE | 2019-06-14 16:00 | NUR ---
MANUAL IRRIGATION DONE FOR THE PT. CLOTS REMOVED. CONTINUOS IRRIGATION GOING ON.
--- NOTE | 2019-06-14 18:00 | NUR ---
MANUAL IRRIGATION COMPLETED. LARSON BAG IS COLLECTING FREE OF CLOTS. PINK COLOR URINE. CBI IS RUNNING NEW IRRIGATION BAGS HUNG CONTINUOUSLY.
[2019-06-14] MEDS ORDERED: LIDOCAINE HCL 2% LOCAL INJ 5 ML SDV VIAL INJ ONE (18:23)
[2019-06-14] MEDS ORDERED: PROPOFOL IV EMULSION 10 MG/ML 20 ML VIAL ONE (18:23)
[2019-06-14] MEDS ORDERED: EPHEDRINE SULFATE INJ 50 MG/10 ML SYR ONE (18:23)
[2019-06-14] MEDS ORDERED: ONDANSETRON HCL INJ 2MG/ML 2ML 2 MG/ML VIAL ONE (18:23)
[2019-06-14] MEDS ORDERED: DEXAMETHASONE SOD PHOS INJ 4 MG/ML VIAL ONE (18:23)
[2019-06-14] MEDS ORDERED: SEVOFLURANE INHAL SOLN 250 ML PEN BTL ONE (18:23)
[2019-06-14] MEDS ORDERED: CEFAZOLIN SOD 1 GM VIAL ONE (18:23)
--- NOTE | 2019-06-14 19:00 | NUR ---
BEDSIDE SHIFT REPORT GIVEN TO THE LINING CLOSER RN. PT DENIED FURTHER NEEDS.
[2019-06-14] MEDS ORDERED: ACETAMINOPHEN 325 MG TAB PO PRN ×2 (19:45→20:00)
[2019-06-14] MEDS ORDERED: B&O 60MG R/S 60 MG SUPP PR PRN ×2 (19:45→22:15)
[2019-06-14 20:00] VITALS: BP 92/58
[2019-06-14 20:30] VITALS: BP 92/58
[2019-06-14] MEDS ORDERED: RIVAROXABAN 15 MG TABLET PO SCH (20:30)
--- NOTE | 2019-06-14 20:52 | NUR ---
PT C/O PAIN IN BLADDER AT THIS TIME. BELLADONNA/OPIUM SUPPOSITORY GIVEN ORDERED. 2100 PT APPEARS LETHARGIC AND RESTLESS AND CONTINUES TO C/O PAIN IN BLADDER. PT ASSISTED AND REPOSITIONED BACK INTO BED. PT VITAL SIGNS TAKEN. HR 60, O2 100% ON RA, T 96.6, RR 18, BP MANUALLY TAKEN 140/90. BLOOD SUGAR 179. RAPID RESPONSE CALLED AT 2106 PATIENT CONTINUED TO BE LETHARGIC. RESPONSE TEAM ARRIVED. PT VITALS REMAIN STABLE. BP RETAKEN MANUALLY 96/58. PT LARSON MANUALLY IRRIGATED AT THIS TIME TO REMOVE CLOTS. CBI FLOWING. PT BATHED AND REPOSITIONED IN BED. DR. JENNIE MORAN MADE AWARE OF RAPID RESPONSE. MADE AWARE OF MANUAL IRRIGATION TO REMOVE CLOTS. DR. MORAN CHANGED BELLADONA/OPIUM SUPPOSITORY TO 30MG. ORDER CHANGED AT THIS TIME.
[2019-06-14] MEDS ORDERED: NALOXONE HCL INJ 0.4 MG/ML AMP ONE (21:17)
[2019-06-14] MEDS: CEFAZOLIN SOD 1 GM/NS 50ML 50 ML IV SCH (23:06)
[2019-06-14] MEDS ORDERED: SODIUM CHLORIDE 0.9% 250ML 250 ML ONE (23:15)
[2019-06-15] VITALS (9 sets, daily range): BP systolic 86–156; BP diastolic 44–84
--- NOTE | 2019-06-15 00:40 | Operative Report ---
DATE OF PROCEDURE: 06/14/2019 SURGEON: Urban Garcia MD SERVICE: Urology. PREOPERATIVE DIAGNOSES: Urinary retention, benign prostatic hyperplasia, urinary tract infection, microhematuria, coronary artery disease. POSTOPERATIVE DIAGNOSES: Urinary retention, benign prostatic hyperplasia, urinary tract infection, microhematuria, coronary artery disease. OPERATION PERFORMED: 1. Cystoscopy and left retrograde pyelogram in attempt to do right retrograde pyelograms. 2. Interpretation of x-ray, radiologist not present. 3. Supervision of fluoroscopy, radiologist not present. 4. Transurethral resection of the prostate using the plasma system. CANNED FOOD RECONDITIONING INSPECTOR: None. ANESTHESIA: General. CLINICAL INDICATION NOTE: This is a 79-year-old patient was brought for assessment of the lower and upper tract. He does have a history of acute renal failure, which appears to be improving. Due to urinary retention, Jackson catheter in place. After clearance for procedure, he was brought for cystoscopy, retrograde, and resection of the prostate. The procedure was discussed with the patient. Potential benefit and complication discussed, explained, and accepted. DESCRIPTION OF PROCEDURE AND FINDING: After proper level of anesthesia was achieved, the patient was placed in lithotomy position, prepped and draped in usual sterile fashion. Urethra inspected, it was unremarkable. A large blocking prostate was noticed. Bladder was extensively trabeculated due to the enlarged prostate. It was difficult to identify the right ureteral orifice, the left was found. Retrograde pyelograms were done and appeared to be unremarkable. Drainage was prompt. The right side was not possible to inject well the ureteral orifice. Following this, scope was removed. Resectoscope was inserted and systematic resection of the prostate was done. The median lobe was resected first and then the two lateral lobes. Following the resection, all the prostatic chips were evacuated and sent to Pathology. Any visible bleeding points were carefully coagulated. No resection was done distal to the . Following this, bladder was filled up with fluid and Crede maneuver demonstrated good flow. A 24-Portuguese 30 mL Jackson balloon catheter was inserted and connected to continuous irrigation with normal saline. ESTIMATED BLOOD LOSS: Minimal. The patient was transferred in satisfactory condition to recovery. He will be followed. Urban Garcia MD [place]/MODL /[id number]
[2019-06-15 05:18] LABS: BASOPHILS % 0.1 % (0.0-1.0); HEMATOCRIT 33.6 % (38.2-49.6); HEMOGLOBIN 10.5 g/dL (14.0-18.0); LYMPHOCYTES # (AUTO) 1.4 (1.0-3.2); LYMPHOCYTES % 11.3 % (18.0-39.1); MEAN CORPUSCULAR HEMOGLOBIN 26.3 pg (28-32); MEAN CORPUSCULAR HGB CONC 31.3 g/dL (31-35); MEAN CORPUSCULAR VOLUME 84.2 fL (81-99); MONOCYTES # (AUTO) 0.9 (0.2-0.8); MONOCYTES % 7.6 % (4.4-11.3); NEUTROPHILS # (AUTO) 9.6 (2.1-6.9); NEUTROPHILS % 80.3 % (38.7-80.0); PLATELET COUNT 306 x10e3/uL (140-360); RED BLOOD COUNT 3.99 x10e6/uL (4.3-5.7); RED CELL DISTRIBUTION WIDTH 15.1 % (11.7-14.4)
[2019-06-15 05:36] LABS: CALCIUM 9.4 mg/dL (8.4-10.2); CREATININE, SERUM 3.55 mg/dL (0.72-1.25)
--- NOTE | 2019-06-15 07:00 | NUR ---
BEDSIDE SHIFT REPORT RECEIVED FROM THE UTILITY WORKER FILM PROCESSING RN. PT DENIES NEEDS AT THIS TIME.
--- NOTE | 2019-06-15 07:00 | NUR ---
BEDSIDE SHIFT REPORT RECEIVED FROM THE FLIGHT ATTENDANT RN. EDUCATED PT ABOUT FALL PRECAUTIONS. BED IS LOW AND LOCKED. SIDE RAILS X2. CALL LIGHT WITH IN EASY REACH. INFORMED PT TO USE CALL LIGHT FOR ANY NEEDS. PT VERBALIZED UNDERSTANDING. BED ALARM IS ON. PT DENIES NEEDS AT THIS TIME.
--- NOTE | 2019-06-15 07:03 | NUR ---
REPORT GIVEN TO MATTIE SCOTT. CBI IS RUNNING AND LARSON BAG IS COLLECTING FREE OF CLOTS. NEW IRRIGATION BAGS HUNG AT THIS TIME.
[2019-06-15] MEDS: FAMOTIDINE 20 MG TAB PO SCH ×2 (08:08→17:30)
[2019-06-15] MEDS: PRAVASTATIN 20 MG TAB PO SCH (08:09)
[2019-06-15] MEDS: MAGNESIUM OXIDE 400 MG TAB PO SCH ×2 (08:10→18:00)
[2019-06-15] MEDS: ALLOPURINOL 100 MG TAB PO SCH (08:10)
[2019-06-15] MEDS: CHOLECALCIFEROL 1,000 UNIT TAB PO SCH (08:10)
[2019-06-15] MEDS: PANTOPRAZOLE SOD 40 MG TABEC PO SCH (08:10)
[2019-06-15] MEDS: CEFAZOLIN SOD 1 GM/NS 50ML 50 ML IV SCH ×2 (08:14→20:46)
[2019-06-15] MEDS ORDERED: BENZONATATE 100 MG CAP PO PRN (08:15)
[2019-06-15] MEDS ORDERED: FLUCONAZOLE 100 MG TAB PO ONE (08:15)
[2019-06-15] MEDS ORDERED: ONDANSETRON HCL INJ 2MG/ML 2ML 2 MG/ML VIAL IV PRN (08:30)
[2019-06-15] MEDS: FLUCONAZOLE 100 MG TAB PO SCH (08:30)
--- NOTE | 2019-06-15 09:00 | NUR ---
PAGED PHARMACY AND RECONFIRMED DIFLUCAN ORDER. PER THE PHARMACY NEED TO GIVE ONLY 100 MG DAILY DOSE.
[2019-06-15] MEDS: BENZONATATE 100 MG CAP PO SCH ×3 (09:39→20:46)
[2019-06-15] MEDS: METOPROLOL TARTRATE 25 MG TAB PO SCH ×2 (11:00→18:00)
[2019-06-15] MEDS: ALBUTEROL/IPRATROPIUM 3 ML NEB NEB SCH ×2 (14:08→19:35)
--- NOTE | 2019-06-15 18:00 | NUR ---
WALKING ROUNDS MADE. CONTINUOUS BLADDER IRRIGATION GOING ON. SCD'S AND LEIF MAYS PRESENT WITH PT. PT DENIES NEEDS AT THIS TIME.
--- NOTE | 2019-06-15 19:00 | NUR ---
BEDSIDE SHIFT GIVEN TO THE PRIMER SUPERVISOR RN. PT IS AAOX4. NO SIGNS OF DISTRESS NOTED. CONTINUOUS BLADDER IRRIGATION GOING ON. CLEAR, PINK URINE AND NO CLOTS DURING THE ENTIRE SHIFT. PT DENIED FURTHER NEEDS.
--- NOTE | 2019-06-15 20:30 | NUR ---
PATIENT REFUSED SCD. EDUCATED PATIENT THE IMPORTANT OF SCD
[2019-06-16] VITALS (7 sets, daily range): BP systolic 102–142; BP diastolic 43–64
[2019-06-16] MEDS: ALBUTEROL/IPRATROPIUM 3 ML NEB NEB SCH ×4 (01:00→19:00)
[2019-06-16 06:00] LABS: BASOPHILS # (AUTO) 0.1 (0.0-0.1); BASOPHILS % 0.4 % (0.0-1.0); EOSINOPHILS % 0.2 % (0.0-6.0); HEMATOCRIT 31.1 % (38.2-49.6); HEMOGLOBIN 9.7 g/dL (14.0-18.0); LYMPHOCYTES # (AUTO) 2.1 (1.0-3.2); LYMPHOCYTES % 15.8 % (18.0-39.1); MEAN CORPUSCULAR HEMOGLOBIN 26.6 pg (28-32); MEAN CORPUSCULAR HGB CONC 31.2 g/dL (31-35); MEAN CORPUSCULAR VOLUME 85.2 fL (81-99); MONOCYTES % 7.4 % (4.4-11.3); NEUTROPHILS # (AUTO) 10.2 (2.1-6.9); NEUTROPHILS % 75.5 % (38.7-80.0); PLATELET COUNT 288 x10e3/uL (140-360); RED BLOOD COUNT 3.65 x10e6/uL (4.3-5.7); RED CELL DISTRIBUTION WIDTH 14.9 % (11.7-14.4)
[2019-06-16 06:20] LABS: ANION GAP 17.6 mmol/L (8-16); CALCIUM 9.7 mg/dL (8.4-10.2); CREATININE, SERUM 2.94 mg/dL (0.72-1.25); POTASSIUM 3.6 mmol/L (3.5-5.1)
--- NOTE | 2019-06-16 07:09 | NUR ---
pt asleep resp even and unlabored a this time no distress noted, pt able to make needs known, pt bladder irrigation in place, call light in reach, will cont to monitor.
[2019-06-16] MEDS ORDERED: FLUCONAZOLE 100 MG TAB PO SCH (09:00)
[2019-06-16] MEDS: BENZONATATE 100 MG CAP PO SCH ×3 (09:29→20:38)
[2019-06-16] MEDS: PRAVASTATIN 20 MG TAB PO SCH (09:29)
[2019-06-16] MEDS: PANTOPRAZOLE SOD 40 MG TABEC PO SCH (09:29)
[2019-06-16] MEDS: CHOLECALCIFEROL 1,000 UNIT TAB PO SCH (09:29)
[2019-06-16] MEDS: MAGNESIUM OXIDE 400 MG TAB PO SCH ×2 (09:29→17:21)
[2019-06-16] MEDS: METOPROLOL TARTRATE 25 MG TAB PO SCH ×2 (09:30→17:22)
[2019-06-16] MEDS: FAMOTIDINE 20 MG TAB PO SCH ×2 (09:30→17:21)
[2019-06-16] MEDS: CEFAZOLIN SOD 1 GM/NS 50ML 50 ML IV SCH ×2 (09:30→20:38)
[2019-06-16] MEDS: FLUCONAZOLE 100 MG TAB PO SCH (09:30)
[2019-06-16] MEDS: ALLOPURINOL 100 MG TAB PO SCH (09:30)
--- NOTE | 2019-06-16 14:58 | Progress Note ---
DATE: 06/16/2019 Cardiology Progress Note SUBJECTIVE: No major events overnight. OBJECTIVE: VITAL SIGNS: Temperature afebrile, pulse 82, respiratory rate 18, blood pressure 144/64, saturating 98% on room air. GENERAL: Elderly man, in no acute distress. CARDIOVASCULAR: Regular rate and rhythm. No murmurs, rubs, or gallops. LUNGS: Clear to auscultation bilaterally. ABDOMEN: Soft, nontender, nondistended. PSYCH AND NEURO: Alert and oriented to person, place, and time. Normal affect. INPATIENT MEDICATIONS: Reviewed. LABORATORY DATA: Reviewed. TELEMETRY DATA: Reviewed, shows paced rhythm. ASSESSMENT AND PLAN: 1. Acute kidney injury secondary to obstructive uropathy, now improving. 2. History of coronary artery disease, status post bypass graft surgery. 3. Peripheral arterial disease. 4. History of atrial fibrillation, rate flutter, status post pacemaker placement. 5. Congestive heart failure, preserved LV ejection fraction. RECOMMENDATIONS: Doing well postoperatively from his urologic surgery. Continue current cardiovascular medication. Hold diuretics given transient worsening of renal function. Thank you for this consult. We will continue to follow. MD CONY Duarte/LATISHA /[id number]
--- NOTE | 2019-06-16 19:44 | NUR ---
REPORT GIVEN TO ONCOMING NURSE, PT STABLE AT THIS TIME.
[2019-06-16] MEDS: ACETAMINOPHEN 325 MG TAB PO PRN (20:39)
[2019-06-17] VITALS (8 sets, daily range): BP systolic 99–144; BP diastolic 49–81
[2019-06-17] MEDS: ALBUTEROL/IPRATROPIUM 3 ML NEB NEB SCH ×4 (01:00→19:45)
[2019-06-17 06:46] LABS: BASOPHILS % 0.5 % (0.0-1.0); EOSINOPHILS # (AUTO) 0.1 (0.0-0.4); EOSINOPHILS % 1.5 % (0.0-6.0); HEMATOCRIT 26.5 % (38.2-49.6); HEMOGLOBIN 8.3 g/dL (14.0-18.0); LYMPHOCYTES # (AUTO) 1.7 (1.0-3.2); LYMPHOCYTES % 19.9 % (18.0-39.1); MEAN CORPUSCULAR HEMOGLOBIN 26.4 pg (28-32); MEAN CORPUSCULAR HGB CONC 31.3 g/dL (31-35); MEAN CORPUSCULAR VOLUME 84.4 fL (81-99); MONOCYTES # (AUTO) 1.3 (0.2-0.8); MONOCYTES % 15.8 % (4.4-11.3); NEUTROPHILS # (AUTO) 5.2 (2.1-6.9); NEUTROPHILS % 61.5 % (38.7-80.0); PLATELET COUNT 242 x10e3/uL (140-360); RED BLOOD COUNT 3.14 x10e6/uL (4.3-5.7); RED CELL DISTRIBUTION WIDTH 15.2 % (11.7-14.4)
[2019-06-17 06:57] LABS: ANION GAP 13.2 mmol/L (8-16); CALCIUM 9.3 mg/dL (8.4-10.2); CREATININE, SERUM 1.99 mg/dL (0.72-1.25); POTASSIUM 3.2 mmol/L (3.5-5.1)
--- NOTE | 2019-06-17 07:12 | NUR ---
PT ASLEEP RESP MARJORIE AND UNLABORED A THIS TIME NO DISTRESS NOTED AT THIS TIME, PT ABLE TO MAKE NEEDS KNOWN, PT HAS CBI INFUSING AT THIS TIME, NO C/O PAIN WHEN ASKED,ALEXANDER LIGHT IN REACH.
[2019-06-17] MEDS ORDERED: FLUCONAZOLE 100 MG TAB PO ONE (09:30)
[2019-06-17] MEDS ORDERED: FUROSEMIDE 40 MG TAB PO ONE (09:30)
[2019-06-17] MEDS: FAMOTIDINE 20 MG TAB PO SCH ×2 (09:55→17:08)
[2019-06-17] MEDS: PRAVASTATIN 20 MG TAB PO SCH (09:56)
[2019-06-17] MEDS: METOPROLOL TARTRATE 25 MG TAB PO SCH ×2 (09:56→17:00)
[2019-06-17] MEDS: MAGNESIUM OXIDE 400 MG TAB PO SCH ×2 (09:56→17:07)
[2019-06-17] MEDS: PANTOPRAZOLE SOD 40 MG TABEC PO SCH (09:57)
[2019-06-17] MEDS: BENZONATATE 100 MG CAP PO SCH ×3 (09:57→20:49)
[2019-06-17] MEDS ORDERED: POTASSIUM CHLORIDE 10MEQ EA PO ONE (10:00)
[2019-06-17] MEDS: CHOLECALCIFEROL 1,000 UNIT TAB PO SCH (10:01)
[2019-06-17] MEDS: ALLOPURINOL 100 MG TAB PO SCH (10:01)
[2019-06-17] MEDS: CEFAZOLIN SOD 1 GM/NS 50ML 50 ML IV SCH ×2 (10:09→20:49)
[2019-06-17] MEDS: LACTULOSE SYRUP 20 GM/30 ML UDC PO PRN (10:09)
--- NOTE | 2019-06-17 15:45 | NUR ---
Visit made by the Spiritual Care Department Pastoral Visitor, Matt Hewitt. PV provided pastoral presence, hospitality, and supportive listening. Pastoral Visitor informed pt/family of the scope of Practical Nursing Instructor Services and availability. JOSH MITTAL Director Digital Communications Spiritual Care Department O: [phone] Pager: [phone] ([phone] number calling from)
--- NOTE | 2019-06-17 17:17 | Progress Note ---
DATE: 06/17/2019 Cardiology Progress Note SUBJECTIVE: No major events overnight. OBJECTIVE: VITAL SIGNS: Temperature afebrile, pulse 63, respiratory rate 21, blood pressure 108/49, saturating 97% on room air. GENERAL: Elderly man, in no acute distress. CARDIOVASCULAR: Regular rate and rhythm. No murmurs, rubs, or gallops. LUNGS: Clear to auscultation bilaterally. ABDOMEN: Soft, nontender, nondistended. NEURO AND PSYCH: Alert and oriented. INPATIENT MEDICATIONS: Reviewed. LABORATORY DATA: Reviewed. TELEMETRY DATA: Reviewed, shows paced rhythm. ASSESSMENT AND PLAN: 1. Acute kidney injury secondary to obstructive uropathy. 2. History of coronary artery disease, status post coronary artery bypass graft in the past. 3. History of peripheral arterial disease. 4. History of atrial fibrillation and atrial flutter, status post permanent pacemaker placement. 5. Congestive heart failure with preserved LV ejection fraction. RECOMMENDATIONS: Doing well from cardiovascular standpoint postoperatively. Continue current cardiovascular medications. MD CONY Duarte/KASSIDYL /[id number]
[2019-06-17] MEDS: ACETAMINOPHEN 325 MG TAB PO PRN (17:30)
--- NOTE | 2019-06-17 19:21 | NUR ---
Report given to oncoming nurse, pt stable
[2019-06-18] VITALS (8 sets, daily range): BP systolic 110–160; BP diastolic 50–64
[2019-06-18] MEDS: ALBUTEROL/IPRATROPIUM 3 ML NEB NEB SCH ×4 (01:22→19:50)
[2019-06-18 05:28] LABS: BASOPHILS % 0.5 % (0.0-1.0); EOSINOPHILS # (AUTO) 0.2 (0.0-0.4); EOSINOPHILS % 2.3 % (0.0-6.0); HEMATOCRIT 27.5 % (38.2-49.6); HEMOGLOBIN 8.6 g/dL (14.0-18.0); LYMPHOCYTES # (AUTO) 1.7 (1.0-3.2); LYMPHOCYTES % 26.5 % (18.0-39.1); MEAN CORPUSCULAR HEMOGLOBIN 26.7 pg (28-32); MEAN CORPUSCULAR HGB CONC 31.3 g/dL (31-35); MEAN CORPUSCULAR VOLUME 85.4 fL (81-99); MONOCYTES # (AUTO) 0.8 (0.2-0.8); MONOCYTES % 12.5 % (4.4-11.3); NEUTROPHILS # (AUTO) 3.8 (2.1-6.9); NEUTROPHILS % 57.6 % (38.7-80.0); PLATELET COUNT 247 x10e3/uL (140-360); RED BLOOD COUNT 3.22 x10e6/uL (4.3-5.7); RED CELL DISTRIBUTION WIDTH 15.2 % (11.7-14.4)
[2019-06-18 05:49] LABS: ANION GAP 15.3 mmol/L (8-16); CALCIUM 9.6 mg/dL (8.4-10.2); CREATININE, SERUM 1.79 mg/dL (0.72-1.25); POTASSIUM 3.3 mmol/L (3.5-5.1)
--- NOTE | 2019-06-18 07:00 | NUR ---
BEDSIDE SHIFT REPORT RECEIVED FROM THE VISUAL EDUCATOR RN. EDUCATED PT ABOUT FALL PRECAUTIONS. BED IS LOW AND LOCKED. BED ALARM IS ON. SIDE RAILS X2. CALL LIGHT WITH IN EASY REACH. INFORMED PT TO USE CALL LIGHT FOR ANY NEEDS. PT VERBALIZED UNDERSTANDING. PT DENIES NEEDS AT THIS TIME.
--- NOTE | 2019-06-18 07:30 | NUR ---
CONTINUOUS BLADDER IRRIGATION GOING ON WITH PT. MANUALLY IRRIGATED AND CLOTS REMOVED.
--- NOTE | 2019-06-18 08:09 | NUR ---
DR. MORAN AT BEDSIDE. HOLD ASPIRIN AND ALLOPURINOL PER THE
[2019-06-18] MEDS: PANTOPRAZOLE SOD 40 MG TABEC PO SCH (08:15)
[2019-06-18] MEDS: FAMOTIDINE 20 MG TAB PO SCH ×2 (08:15→15:33)
[2019-06-18] MEDS: BENZONATATE 100 MG CAP PO SCH ×3 (08:15→21:07)
[2019-06-18] MEDS: MAGNESIUM OXIDE 400 MG TAB PO SCH ×2 (08:17→16:06)
[2019-06-18] MEDS: METOPROLOL TARTRATE 25 MG TAB PO SCH ×2 (08:17→16:06)
[2019-06-18] MEDS: PRAVASTATIN 20 MG TAB PO SCH (08:18)
[2019-06-18] MEDS: FLUCONAZOLE 100 MG TAB PO SCH (08:18)
[2019-06-18] MEDS: CHOLECALCIFEROL 1,000 UNIT TAB PO SCH (08:18)
--- NOTE | 2019-06-18 08:30 | NUR ---
CBI. CLEAR PINK URINE NOTED.
[2019-06-18] MEDS ORDERED: ASPIRIN 81 MG ENTERIC COATED PO SCH (09:00)
[2019-06-18] MEDS: CEFAZOLIN SOD 1 GM/NS 50ML 50 ML IV SCH (09:30)
--- NOTE | 2019-06-18 12:06 | NUR ---
INFORMED DR. LEPE ABOUT PT K LEVEL. NO NEW ORDERS RECEIVED.
[2019-06-18] MEDS: MEROPENEM 1GM 100 ML IV SCH (12:40)
--- NOTE | 2019-06-18 13:21 | NUR ---
Received order for LTAC. Spoke to pt at bedside and he gave choice for [facility]. Signed copy placed in chart. Copy to pt. Latrice with [facility] was notified. She's currently at the hospital and will come by unit and picker / packer clinicals.
[2019-06-18] MEDS ORDERED: POTASSIUM CHLORIDE 20 MEQ TAB CR PO SCH (17:30)
--- NOTE | 2019-06-18 19:00 | NUR ---
BEDSIDE SHIFT REPORT GIVEN TO THE AGRICULTURAL CROP FARM MANAGER RN. PT DENIED FURTHER NEEDS. CONTINUOUS BLADDER IRRIGATION. NO CLOTS CLEAR FLEMING URINE.
[2019-06-19] VITALS: BP 159/97
[2019-06-19] MEDS: MEROPENEM 1GM 100 ML IV SCH ×2 (00:10→12:00)
[2019-06-19] MEDS: ALBUTEROL/IPRATROPIUM 3 ML NEB NEB SCH ×3 (01:05→13:00)
[2019-06-19 04:00] VITALS: BP 155/63
--- NOTE | 2019-06-19 07:12 | NUR ---
PT AWAKE RESP EVEN AND UNLABORED A THIS TIME NO DISTRESS NOTED AT THIS TIME, PT SITTING AT BEDSIDE, PT ABLE TO MAKE NEEDS KNOWN, NO C/O PAIN WHEN ASKED,CALL LIGHT IN REACH.
--- NOTE | 2019-06-19 07:15 | NUR ---
pt awake resp even and unlabored, no distress noted at this time, pt easily aroused, and able to make needs known, call light in reach.
[2019-06-19 08:25] VITALS: BP 104/65
[2019-06-19] MEDS: CHOLECALCIFEROL 1,000 UNIT TAB PO SCH (09:30)
[2019-06-19] MEDS: BENZONATATE 100 MG CAP PO SCH ×2 (09:30→15:00)
[2019-06-19] MEDS: FAMOTIDINE 20 MG TAB PO SCH ×2 (09:30→17:11)
[2019-06-19] MEDS: FLUCONAZOLE 100 MG TAB PO SCH (09:30)
[2019-06-19] MEDS: PRAVASTATIN 20 MG TAB PO SCH (09:30)
[2019-06-19] MEDS: PANTOPRAZOLE SOD 40 MG TABEC PO SCH (09:30)
[2019-06-19] MEDS: MAGNESIUM OXIDE 400 MG TAB PO SCH ×2 (09:30→17:11)
[2019-06-19] MEDS: METOPROLOL TARTRATE 25 MG TAB PO SCH (09:31)
--- NOTE | 2019-06-19 09:40 | NUR ---
pt decline working with PT.
--- NOTE | 2019-06-19 09:50 | NUR ---
Jackson removed pt tolerated well, 25 ml out of bulb from Jackson.
[2019-06-19 12:00] VITALS: BP 104/65
--- NOTE | 2019-06-19 12:30 | NUR ---
LONG-TERM ACUTE CARE DISCHARGE INFORMATION PATIENT HAS BEEN ACCEPTED TO: NAME: [facility] ADDRESS: [address], [place] [address] ACCEPTING GRADE SCHOOL TEACHER: Corin Díaz, child care center administrator ACCEPTING MD: Dr. Hussein Gaffney ROOM: [id number] NURSE CALL REPORT TO: [phone] THE FOLLOWING DOCUMENTS MUST ACCOMPANY PATIENT FOR TRANSFER: Copy of chart, Transfer MAR COPIED CHART: infantry unit leader MOT INFO RECEIVED FROM: Latrice Willson PHYSICIANS ORDER/RECONCILED MED LIST: to be obtained by bedside nurse [id number] DNR: n/a Informed RADHA Flores of MOT. MOT placed with pt's packet at nurses station.
[2019-06-19 12:36] VITALS: BP 170/72
--- NOTE | 2019-06-19 12:56 | NUR ---
Nutrition Screen Note RD Recommendation for Physician: - Continue current diet Plan of Care: RD following, monitoring for tolerance and adequacy Nutrition reason for involvement: follow up Primary Diagnose(s): acute renal failure, A-fib PMH: CAD, CABG, PAD, CHF Ht: 69 in Wt: 248 lb BMI: 36.6 kg/m2 IBW: [address] Assessment: 06/19: Follow up. Pt discussed during am rounds. Pt continues with good appetite and intake, noted 100% intake per chart. No GI distress, LBM 06/18. Skin intact. Labs and meds reviewed. Pt pending discharge to LTAC. Will monitor and continue to follow. (06/12) 79 YOM admitted for acute renal failure due to obstructive uropathy per MD notes. Pt discussed during am rounds, TURP planned- no date yet. Pt seen today for LOS. Pt reports good appetite and po intake, currently and DYNAMITER. Pt denies any N/V/C/D. Pt denies wt loss, can not recall UBW. Pt with no questions or concerns at time of visit. Chart reviewed. Labs and meds reviewed. Will monitor and continue to follow. Current Diet: Renal Malnutrition Evaluation (06/12/19) The patient does not meet criteria for a specified degree of malnutrition at this time. Will re-evaluate at follow-up as appropriate. Diet Education Needs Assessment: Diet education not indicated. Diet tolerance: tolerating Nutrition Care Level: low Signed: Tere Nicolas RD, LD, [facility]
--- NOTE | 2019-06-19 14:55 | NUR ---
Bladder scan done at this time. Patient noted to have 291ml of urine. Call placed to Dr. Garcia to inquire about placing the catheter back before discharge
--- NOTE | 2019-06-19 15:59 | NUR ---
22F coude cath placed at this time. 450ml of dark luz maria urine noted in cuellar. No s/s of distress noted
--- NOTE | 2019-06-19 16:19 | NUR ---
report called to guru and Sonia osei [facility].
--- NOTE | 2019-06-19 18:50 | NUR ---
pt discharge to [facility], resp even and unlabored at this time.
== END 2019-06-19 18:50 | DRG 665 ==
LOC: ER 10:34 → ERHOLD 13:19 → ICU 16:18 → MED/SURG2 06-10 06:05
PROVIDERS: ADMIT Internal Medicine; ATTEND Internal Medicine
PROC: 02HV33Z Insertion of Infusion Device into Superior Vena Cava, Percutaneous Approach (ICD-10-PCS; 2019-06-06)
PROC: B548ZZA Ultrasonography of Superior Vena Cava, Guidance (ICD-10-PCS; 2019-06-06)
PROC: 5A1D70Z Performance of Urinary Filtration, Intermittent, Less than 6 Hours Per Day (ICD-10-PCS; 2019-06-07)
PROC: 0V508ZZ Destruction of Prostate, Via Natural or Artificial Opening Endoscopic (ICD-10-PCS; principal; 2019-06-14 10:36)
DX: T83.511A Infection and inflammatory reaction due to indwelling urethral catheter, initial encounter (principal); N17.0 Acute kidney failure with tubular necrosis; I48.92 Unspecified atrial flutter; N17.9 Acute kidney failure, unspecified; I48.20 Chronic atrial fibrillation, unspecified; N13.6 Pyonephrosis; N13.8 Other obstructive and reflux uropathy; I13.0 Hypertensive heart and chronic kidney disease with heart failure and stage 1 through stage 4 chronic kidney disease, or unspecified chronic kidney disease; B37.49 Other urogenital candidiasis; N40.1 Benign prostatic hyperplasia with lower urinary tract symptoms; I48.91 Unspecified atrial fibrillation; J44.9 Chronic obstructive pulmonary disease, unspecified; I25.2 Old myocardial infarction; Z95.1 Presence of aortocoronary bypass graft; Z95.810 Presence of automatic (implantable) cardiac defibrillator; Z82.49 Family history of ischemic heart disease and other diseases of the circulatory system; Z79.01 Long term (current) use of anticoagulants; R06.03 Acute respiratory distress; R33.8 Other retention of urine; E78.5 Hyperlipidemia, unspecified; I25.10 Atherosclerotic heart disease of native coronary artery without angina pectoris; Z87.440 Personal history of urinary (tract) infections; K42.9 Umbilical hernia without obstruction or gangrene; K74.60 Unspecified cirrhosis of liver; K21.9 Gastro-esophageal reflux disease without esophagitis; Z91.81 History of falling; I50.9 Heart failure, unspecified; N47.1 Phimosis; E66.9 Obesity, unspecified; Z68.36 Body mass index [BMI] 36.0-36.9, adult; D64.9 Anemia, unspecified; N18.3 Chronic kidney disease, stage 3 (moderate)
CPT/HCPCS: 36415; 36556; 51703; 71045; 74176; 74420; 74470; 76937; 80048; 80053; 80061; 81001; 82550; 82553; 83735; 83880; 84484; 85025; 85610; 85730; 86704; 86705; 87040; 87086; 87340; 88305; 88312; 90962; 93005; 93306; 94640; 99285; C1758; C1769; J0690; J1100; J1644; J1940; J2001; J2270; J2310; J2405; J3010; J3475; J3480; J7030; J7050

== ENCOUNTER → 2020-01-08 | Day surgery (SDC) | payer MEDICARE, OTHER ==
[2020-01-03 13:04] LABS: BASOPHILS % 0.4 % (0.0-1.0); EOSINOPHILS # (AUTO) 0.1 (0.0-0.4); EOSINOPHILS % 2.4 % (0.0-6.0); HEMATOCRIT 35.9 % (38.2-49.6); HEMOGLOBIN 10.3 g/dL (14.0-18.0); LYMPHOCYTES # (AUTO) 1.7 (1.0-3.2); LYMPHOCYTES % 36.8 % (18.0-39.1); MEAN CORPUSCULAR HEMOGLOBIN 21.5 pg (28-32); MEAN CORPUSCULAR HGB CONC 28.7 g/dL (31-35); MEAN CORPUSCULAR VOLUME 74.8 fL (81-99); MONOCYTES # (AUTO) 0.5 (0.2-0.8); MONOCYTES % 11.1 % (4.4-11.3); NEUTROPHILS # (AUTO) 2.3 (2.1-6.9); NEUTROPHILS % 49.1 % (38.7-80.0); PLATELET COUNT 196 x10e3/uL (140-360); RED CELL DISTRIBUTION WIDTH 17.9 % (11.7-14.4)
[2020-01-03 13:35] LABS: ALBUMIN 3.8 g/dL (3.5-5.0); ALBUMIN/GLOBULIN RATIO 1.1 (0.8-2.0); ANION GAP 12.2 mmol/L (8-16); CALCIUM 9.5 mg/dL (8.4-10.2); CREATININE, SERUM 1.45 mg/dL (0.72-1.25); POTASSIUM 4.2 mmol/L (3.5-5.1)
[2020-01-08] VITALS (8 sets, daily range): BP systolic 121–144; BP diastolic 58–77
[~2020-01-08] VITALS: Ht 175.3 cm; Wt 101.2 kg
[~2020-01-08] MED LIST changes: +ALLOPURINOL100 MG PO; +ALPRAZOLAM 0.5 MG TAB ONE; +ARNUITY ELLIPTA INH; +ATORVASTATIN CA10 MG PO; +DIPHENHYDRAMINE HCL 25 MG CAP ONE; +ERGOCAL2500 UNIT PO; +FENTANYL CITRATE/PF 100MCG/2 ML INJ ONE; +FLOMAX0.4 MG PO; +HEPARIN SOD/SOD CHLORIDE 2,000 ML ONE; +INDOMETHACIN50 MG PO; +IOPAMIDOL 300MG/ML 100 ML INFUS..BTL IV ONE; +LACTULOSE20 GM/30 M PO; +LIDOCAINE HCL 2% LOCAL 20 ML VIAL ONE; +MAGNESIUM OXID400 MG PO; +METOLAZONE5 MG PO; +MIDAZOLAM HCL 2 MG/2 ML VIAL ONE; +PANTOPRAZOLE SO40 MG PO; +SODIUM CHLORIDE 0.9% 1000ML 1,000 ML ONE; +VENTOLIN HFA18 GM; +VERAPAMIL HCL 2.5 MG/ML 2 ML VIAL ONE
--- NOTE | 2020-01-08 11:41 | NUR ---
1141 am RECEIVING NOTE V BELT INSPECTOR RECOVERY DEPT............................................................... Bedside report received from MATTIE Valencia. Identifierx2. Alert oriented and appropriate, PERRLA, respirations even and unlabored to room air. Pulses x4 extremeties equal and strong. Pedal pulses PT/DP X4 Doppler only. Cap fill brisk < 3 sec. Abort unable to perform Rt radial site with no gross issues pain,pallor,pressure or dysrhythmia. Skin warm and dry integrity appears D/I. IV 20g to LFA 20g, presents healthy w/o s/s of infiltration or complaint. Abdomen soft and supple. pt offered toileting, denies need to urinate or defecate. No personal affects with patient. Family at bedside. Pt and family verbalizes understanding of POC. Currently w/o complaint of pain or need. ds/rn
--- NOTE | 2020-01-08 11:45 | NUR ---
pt in CCL 10, prepped for procedure. Alert oriented and appropriate, PERRLA, respirations even and unlabored to room air. Pedal Pulses x4 extremities doppler weak/faint. Cap fill brisk > 3 sec. foot cool with +2 pedal edema left foot and trace to right. Skin warm and dry integrity appears intact in general. IV 20g started and presents healthy w/o s/s of infiltration or complaint. Abdomen soft and supple. pt offered toileting, denies need to urinate or defecate. Personal affects with patient. Family not available. Pt verbalizes understanding of POC. Educated system administration manager light use after pre-Op Meds benadryl and xanax given. bed low and locked, side rails up x2 and call light at side. [place] [place]
--- NOTE | 2020-01-08 14:30 | NUR ---
1430p RADIAL COMPRESSION REMOVAL NOTE: Initial Cuff volume 13 cc 1430p -3cc Removed No hematoma/bleeding noted with normal neurovascular function. 1445p -5cc Removed No hematoma/ bleeding noted with normal neurovascular function. 1500p -5cc Removed No hematoma/bleeding noted with normal neurovascular function. Air removal completed. Stasis achieved sterile 2x2,Tegaderm, Coban dressing No hematoma, bleeding noted with normal neurovascular function. Wrist splint in place. Pt instructed on POC. Ds/Rn
--- NOTE | 2020-01-08 15:00 | NUR ---
1500pm MANAGER MANAGEMENT RECOVERY DISCHARGE NURSING NOTE Pt meets DC criteria. Rt TR site assessed for s/s of complication and presence of hematoma. Skin warm, dry, no discolor, and pulses present. IV removed from LFA. Distal tip appears intact. VS WNL. Pt denies pain, sob, or need at this time. Family at BS. Review of discharge paperwork and follow up instructions. verbalized understanding. Pt to wheelchair and transported to front of hospital. Transferred to private vehicle under own strength w/o incident with DC paperwork in hand. - lorri/erwin
--- NOTE | 2020-01-08 20:06 | Operative Report ---
DATE OF PROCEDURE: 01/08/2020 SURGEON: Jeffrey Shafer MD INDICATIONS: Peripheral arterial disease. PROCEDURES PERFORMED: 1. Conscious sedation 35 minutes. 2. Aborted attempted atherectomy and angioplasty of the left femoral artery. 3. Ultrasound-guided access in the right radial artery. 4. Abdominal aorta catheter placement. 5. Unable to advance catheter in the descending aorta, aborted procedure. DESCRIPTION OF PROCEDURE: Access was obtained in the right radial artery. Using ultrasound guidance, a 6-Italian sheath was placed. Difficulty when advancing catheter to the abdominal aorta. The groins were heavily calcified. No access was obtained. Catheter was advanced in the right femoral artery, bilateral iliac arteries, however, no intervention was performed. Right wrist TR band applied. The patient discharged home the same day. Jeffrey Shafer MD [facility]/MODL /[id number]
== END | disposition home or self-care (01) ==
LOC: CATH LAB 10:40
PROVIDERS: ATTEND Internal Medicine Interventional Cardiology
DX: I73.9 Peripheral vascular disease, unspecified (principal); I25.10 Atherosclerotic heart disease of native coronary artery without angina pectoris; I48.91 Unspecified atrial fibrillation; I10 Essential (primary) hypertension; Z95.0 Presence of cardiac pacemaker; Z95.1 Presence of aortocoronary bypass graft; Z95.5 Presence of coronary angioplasty implant and graft; Z01.812 Encounter for preprocedural laboratory examination; Z11.59 Encounter for screening for other viral diseases; Z79.02 Long term (current) use of antithrombotics/antiplatelets; Z79.82 Long term (current) use of aspirin; Z68.33 Body mass index [BMI] 33.0-33.9, adult
CPT/HCPCS: 36415; 37225; 75625; 76937; 80053; 85025; 87635; C1769 ×2; C1887; J2001; J2250; J3010; J7030; Q9967; 99152; 99153

== ENCOUNTER 2020-03-20 12:40 | Observation (INO) | payer MEDICARE, OTHER ==
[~2020-03-20] VITALS: Ht 175.3 cm; Wt 102.1 kg
[~2020-03-20 12:40] MED LIST changes: -ALPRAZOLAM 0.5 MG TAB ONE; -DIPHENHYDRAMINE HCL 25 MG CAP ONE; -FENTANYL CITRATE/PF 100MCG/2 ML INJ ONE; -HEPARIN SOD/SOD CHLORIDE 2,000 ML ONE; -IOPAMIDOL 300MG/ML 100 ML INFUS..BTL IV ONE; -LIDOCAINE HCL 2% LOCAL 20 ML VIAL ONE; -MIDAZOLAM HCL 2 MG/2 ML VIAL ONE; -SODIUM CHLORIDE 0.9% 1000ML 1,000 ML ONE; -VERAPAMIL HCL 2.5 MG/ML 2 ML VIAL ONE
[2020-03-20] MEDS ORDERED: ONDANSETRON HCL INJ 2MG/ML 2ML 2 MG/ML VIAL IV STA (12:43)
[2020-03-20] MEDS ORDERED: METHYLPREDNISOLONE SOD SUCC 125 MG/2ML VIAL IV ONE (12:45)
[2020-03-20] MEDS ORDERED: MORPHINE SULFATE INJ 4 MG/ML INJ 1ML IV ONE (12:45)
[2020-03-20 13:22] LABS: BASOPHILS % 0.3 % (0.0-1.0); EOSINOPHILS % 0.1 % (0.0-6.0); HEMATOCRIT 34.2 % (38.2-49.6); HEMOGLOBIN 9.9 g/dL (14.0-18.0); LYMPHOCYTES # (AUTO) 1.2 (1.0-3.2); MEAN CORPUSCULAR HGB CONC 28.9 g/dL (31-35); MEAN CORPUSCULAR VOLUME 75.8 fL (81-99); MONOCYTES # (AUTO) 0.8 (0.2-0.8); MONOCYTES % 11.2 % (4.4-11.3); NEUTROPHILS # (AUTO) 5.2 (2.1-6.9); NEUTROPHILS % 72.1 % (38.7-80.0); PLATELET COUNT 191 x10e3/uL (140-360); RED BLOOD COUNT 4.51 x10e6/uL (4.3-5.7); RED CELL DISTRIBUTION WIDTH 18.9 % (11.7-14.4)
[2020-03-20 13:46] LABS: ALBUMIN 3.7 g/dL (3.5-5.0); ALBUMIN/GLOBULIN RATIO 0.9 (0.8-2.0); ANION GAP 14.6 mmol/L (8-16); CALCIUM 9.5 mg/dL (8.4-10.2); CREATININE, SERUM 1.46 mg/dL (0.72-1.25); POTASSIUM 3.6 mmol/L (3.5-5.1)
[2020-03-20 16:49] LABS: CLARITY,URINE SL CLOUDY (CLEAR); COLOR,URINE YELLOW (YELLOW)
[2020-03-20 16:50] LABS: BILIRUBIN,URINE 1+ (NEGATIVE); KETONES,URINE NEGATIVE (NEGATIVE); LEUKOCYTE ESTERASE ,URINE NEGATIVE (NEGATIVE); NITRITE,URINE NEGATIVE (NEGATIVE); PROTEIN,URINE DIPSTICK 1+ (NEGATIVE); URINE UROBILINOGEN 1 mg/dL (0.2 - 1)
[2020-03-20 17:06] LABS: BACTERIA,URINE MODERATE /HPF; EPITHELIAL CELLS,URINE FEW /LPF; MUCUS,URINE FEW (RARE); RBC,URINE 0-5 /HPF (0-5)
[2020-03-20] MEDS ORDERED: METOPROLOL TARTRATE INJ 1 MG/ML VIAL IV PRN (17:15)
[2020-03-20] MEDS ORDERED: ACETAMINOPHEN 325 MG TAB PO PRN (17:15)
[2020-03-20] MEDS ORDERED: ONDANSETRON HCL INJ 2MG/ML 2ML 2 MG/ML VIAL IV PRN (17:15)
[2020-03-20] MEDS: CEFTRIAXONE SOD 1 GM/NS 50 ML 50 ML IV SCH (17:39)
[2020-03-20] MEDS ORDERED: FUROSEMIDE INJ 10 MG/ML 4 ML VIAL IV ONE (18:15)
[2020-03-20 20:00] VITALS: BP 164/70
[2020-03-20 20:07] VITALS: BP 164/70
[2020-03-20] MEDS: ACETAMINOPHEN/CODEINE 300MG - 30MG TAB PO PRN (21:29)
[2020-03-20] MEDS: MELATONIN 5 MG TABLET PO SCH (21:30)
[2020-03-20] MEDS: ATORVASTATIN 10 MG TAB PO SCH (21:30)
[2020-03-20] MEDS: FUROSEMIDE INJ 10 MG/ML 4 ML VIAL IV SCH (21:30)
[2020-03-20 23:04] VITALS: BP 164/70
[2020-03-21] VITALS (8 sets, daily range): BP systolic 119–170; BP diastolic 43–71
[2020-03-21 06:41] LABS: HEMATOCRIT 31.9 % (38.2-49.6); HEMOGLOBIN 9.7 g/dL (14.0-18.0); LYMPHOCYTES # (AUTO) 0.9 (1.0-3.2); MEAN CORPUSCULAR HEMOGLOBIN 23.7 pg (28-32); MEAN CORPUSCULAR HGB CONC 30.4 g/dL (31-35); MONOCYTES # (AUTO) 0.5 (0.2-0.8); MONOCYTES % 6.5 % (4.4-11.3); NEUTROPHILS # (AUTO) 5.8 (2.1-6.9); NEUTROPHILS % 81.2 % (38.7-80.0); PLATELET COUNT 157 x10e3/uL (140-360); RED BLOOD COUNT 4.09 x10e6/uL (4.3-5.7); RED CELL DISTRIBUTION WIDTH 20.9 % (11.7-14.4)
[2020-03-21 06:56] LABS: ALBUMIN 3.3 g/dL (3.5-5.0); ALBUMIN/GLOBULIN RATIO 0.9 (0.8-2.0); ANION GAP 13.9 mmol/L (8-16); CALCIUM 9.3 mg/dL (8.4-10.2); CREATININE, SERUM 1.43 mg/dL (0.72-1.25); POTASSIUM 3.9 mmol/L (3.5-5.1)
[2020-03-21 07:18] LABS: CHOL/HDL RATIO 2.9 (3.9-4.7)
[2020-03-21 07:38] LABS: THYROID STIMULATING HORMONE 0.478 uIU/mL (0.350-4.940)
[2020-03-21] MEDS ORDERED: ASPIRIN 325 MG TAB PO SCH (09:00)
[2020-03-21] MEDS ORDERED: RIVAROXABAN 20 MG TABLET PO SCH (09:00)
[2020-03-21] MEDS: METOPROLOL TARTRATE 25 MG TAB PO SCH (09:00)
[2020-03-21] MEDS ORDERED: METOLAZONE 5 MG TAB PO SCH (09:00)
[2020-03-21] MEDS ORDERED: POTASSIUM CHLORIDE 20 MEQ TAB CR PO SCH ×2 (09:00→10:45)
[2020-03-21] MEDS: FUROSEMIDE INJ 10 MG/ML 4 ML VIAL IV SCH (09:21)
[2020-03-21] MEDS: TAMSULOSIN HCL 0.4 MG CAP PO SCH (09:21)
[2020-03-21] MEDS: PANTOPRAZOLE SOD 40 MG TABEC PO SCH (09:21)
[2020-03-21] MEDS: FAMOTIDINE 20 MG TAB PO SCH ×2 (09:21→16:50)
[2020-03-21] MEDS ORDERED: FUROSEMIDE INJ 10 MG/ML 4 ML VIAL IV SCH (10:45)
[2020-03-21] MEDS ORDERED: SODIUM CHLORIDE 0.9% 250ML 250 ML ONE (16:45)
[2020-03-21] MEDS: CEFTRIAXONE SOD 1 GM/NS 50 ML 50 ML IV SCH (17:00)
[2020-03-21] MEDS: ATORVASTATIN 10 MG TAB PO SCH (20:51)
[2020-03-21] MEDS: MELATONIN 5 MG TABLET PO SCH (20:52)
[2020-03-22] VITALS (8 sets, daily range): BP systolic 106–158; BP diastolic 52–72
[2020-03-22 05:57] LABS: BASOPHILS % 0.3 % (0.0-1.0); EOSINOPHILS % 0.3 % (0.0-6.0); HEMATOCRIT 33.8 % (38.2-49.6); LYMPHOCYTES # (AUTO) 2.2 (1.0-3.2); LYMPHOCYTES % 28.7 % (18.0-39.1); MEAN CORPUSCULAR HEMOGLOBIN 22.1 pg (28-32); MEAN CORPUSCULAR HGB CONC 29.6 g/dL (31-35); MEAN CORPUSCULAR VOLUME 74.6 fL (81-99); MONOCYTES # (AUTO) 0.7 (0.2-0.8); NEUTROPHILS # (AUTO) 4.8 (2.1-6.9); NEUTROPHILS % 61.4 % (38.7-80.0); PLATELET COUNT 223 x10e3/uL (140-360); RED BLOOD COUNT 4.53 x10e6/uL (4.3-5.7); RED CELL DISTRIBUTION WIDTH 18.8 % (11.7-14.4)
[2020-03-22] MEDS: ACETAMINOPHEN/CODEINE 300MG - 30MG TAB PO PRN (06:15)
[2020-03-22 06:18] LABS: ALANINE AMINOTRANSFERASE 15 IU/L (0-55); ALBUMIN 3.3 g/dL (3.5-5.0); ALBUMIN/GLOBULIN RATIO 0.9 (0.8-2.0); ALKALINE PHOSPHATASE 93 IU/L (40-150); ANION GAP 14.6 mmol/L (8-16); BLOOD UREA NITROGEN 32 mg/dL (7-26); BUN/CREATININE RATIO 24 (6-25); CARBON DIOXIDE 27 mmol/L (22-29); CHLORIDE 102 mmol/L (98-107); CREATININE, SERUM 1.36 mg/dL (0.72-1.25); EST GLOMERULAR FILTRATION RATE > 60 ML/MIN (60-); GLUCOSE 92 mg/dL (74-118); POTASSIUM 3.6 mmol/L (3.5-5.1); SODIUM 140 mmol/L (136-145)
[2020-03-22] MEDS: POTASSIUM CHLORIDE 20 MEQ TAB CR PO SCH (08:18)
[2020-03-22] MEDS: FUROSEMIDE INJ 10 MG/ML 4 ML VIAL IV SCH (08:18)
[2020-03-22] MEDS: ASPIRIN 81 MG CHEW TAB PO SCH (08:18)
[2020-03-22] MEDS: TAMSULOSIN HCL 0.4 MG CAP PO SCH (08:18)
[2020-03-22] MEDS: FAMOTIDINE 20 MG TAB PO SCH ×2 (08:18→18:31)
[2020-03-22] MEDS: PANTOPRAZOLE SOD 40 MG TABEC PO SCH (08:20)
[2020-03-22] MEDS: RIVAROXABAN 15 MG TABLET PO SCH (08:20)
[2020-03-22] MEDS: METOPROLOL TARTRATE 25 MG TAB PO SCH (08:20)
[2020-03-22] MEDS ORDERED: FUROSEMIDE40 MG PO (10:41)
[2020-03-22] MEDS ORDERED: PRILOSEC10 M1 PO (11:27)
[2020-03-22] MEDS ORDERED: CARAFATE1 GM PO (11:32)
[2020-03-22] MEDS ORDERED: GABAPENTIN400 MG PO (11:32)
[2020-03-22] MEDS ORDERED: PNEUMOCOCCAL VACCINE POLYVALENT 23 MCG/0.5 ML VIAL IM SCH (12:00)
[2020-03-22] MEDS ORDERED: PREDNISONE 20 MG TAB PO SCH (14:30)
[2020-03-22] MEDS: COLCHICINE 0.6 MG TAB PO SCH (18:31)
[2020-03-22] MEDS: ATORVASTATIN 10 MG TAB PO SCH (21:15)
[2020-03-22] MEDS: MELATONIN 5 MG TABLET PO SCH (21:15)
[2020-03-22] MEDS: INDOMETHACIN 25 MG CAP PO SCH (21:26)
[2020-03-23 01:55] VITALS: BP 139/58
[2020-03-23 06:38] LABS: BASOPHILS % 0.1 % (0.0-1.0); EOSINOPHILS % 0.1 % (0.0-6.0); HEMATOCRIT 33.3 % (38.2-49.6); HEMOGLOBIN 9.9 g/dL (14.0-18.0); LYMPHOCYTES # (AUTO) 1.8 (1.0-3.2); LYMPHOCYTES % 26.7 % (18.0-39.1); MEAN CORPUSCULAR HEMOGLOBIN 22.1 pg (28-32); MEAN CORPUSCULAR HGB CONC 29.7 g/dL (31-35); MEAN CORPUSCULAR VOLUME 74.3 fL (81-99); MONOCYTES # (AUTO) 0.8 (0.2-0.8); MONOCYTES % 11.6 % (4.4-11.3); NEUTROPHILS # (AUTO) 4.2 (2.1-6.9); NEUTROPHILS % 61.2 % (38.7-80.0); PLATELET COUNT 234 x10e3/uL (140-360); RED BLOOD COUNT 4.48 x10e6/uL (4.3-5.7); RED CELL DISTRIBUTION WIDTH 18.6 % (11.7-14.4)
[2020-03-23 06:40] VITALS: BP 135/70
[2020-03-23 06:52] LABS: ALANINE AMINOTRANSFERASE 18 IU/L (0-55); ALBUMIN 3.3 g/dL (3.5-5.0); ALBUMIN/GLOBULIN RATIO 0.9 (0.8-2.0); ALKALINE PHOSPHATASE 99 IU/L (40-150); ANION GAP 15.5 mmol/L (8-16); BLOOD UREA NITROGEN 31 mg/dL (7-26); BUN/CREATININE RATIO 24 (6-25); CARBON DIOXIDE 27 mmol/L (22-29); CHLORIDE 100 mmol/L (98-107); EST GLOMERULAR FILTRATION RATE > 60 ML/MIN (60-); GLUCOSE 104 mg/dL (74-118); POTASSIUM 3.5 mmol/L (3.5-5.1); SODIUM 139 mmol/L (136-145)
[2020-03-23 08:13] VITALS: BP 150/50
[2020-03-23] MEDS: FAMOTIDINE 20 MG TAB PO SCH (08:36)
[2020-03-23] MEDS: FUROSEMIDE INJ 10 MG/ML 4 ML VIAL IV SCH (08:36)
[2020-03-23] MEDS: COLCHICINE 0.6 MG TAB PO SCH (08:37)
[2020-03-23] MEDS: ASPIRIN 81 MG CHEW TAB PO SCH (08:37)
[2020-03-23] MEDS: RIVAROXABAN 15 MG TABLET PO SCH (08:37)
[2020-03-23] MEDS: PANTOPRAZOLE SOD 40 MG TABEC PO SCH (08:37)
[2020-03-23] MEDS: POTASSIUM CHLORIDE 20 MEQ TAB CR PO SCH (08:38)
[2020-03-23] MEDS: TAMSULOSIN HCL 0.4 MG CAP PO SCH (08:38)
[2020-03-23] MEDS: METOPROLOL TARTRATE 25 MG TAB PO SCH (08:39)
[2020-03-23] MEDS: INDOMETHACIN 25 MG CAP PO SCH (08:56)
[2020-03-23 09:00] VITALS: BP 150/50
[2020-03-23] MEDS ORDERED: PREDNISONE 20 MG TAB PO SCH (09:00)
[2020-03-23] MEDS ORDERED: FUROSEMIDE40 MG PO (10:59)
[2020-03-23] MEDS ORDERED: PREDNISONE20 MG PO (10:59)
[2020-03-23] MEDS ORDERED: INDOMETHACIN25 MG PO (10:59)
[2020-03-23] MEDS ORDERED: Colchicine PO (10:59)
[2020-03-23 12:48] VITALS: BP 124/85
== END 2020-03-23 14:50 | disposition home or self-care (01) ==
LOC: ER 12:50 → INTOOBSV 16:21 → ERHOLD 16:21 → MED/SURG2 19:52
PROVIDERS: ADMIT Internal Medicine; ATTEND Internal Medicine
DX: I11.0 Hypertensive heart disease with heart failure (principal); I50.33 Acute on chronic diastolic (congestive) heart failure; E66.9 Obesity, unspecified; Z68.33 Body mass index [BMI] 33.0-33.9, adult; E78.5 Hyperlipidemia, unspecified; I25.10 Atherosclerotic heart disease of native coronary artery without angina pectoris; I48.19 Other persistent atrial fibrillation; Z79.01 Long term (current) use of anticoagulants; Z11.59 Encounter for screening for other viral diseases; J44.9 Chronic obstructive pulmonary disease, unspecified; I25.2 Old myocardial infarction; Z95.810 Presence of automatic (implantable) cardiac defibrillator; Z95.1 Presence of aortocoronary bypass graft; N18.9 Chronic kidney disease, unspecified; Z87.891 Personal history of nicotine dependence; N40.0 Benign prostatic hyperplasia without lower urinary tract symptoms; I48.91 Unspecified atrial fibrillation; N17.9 Acute kidney failure, unspecified; I73.9 Peripheral vascular disease, unspecified; M19.90 Unspecified osteoarthritis, unspecified site; I48.92 Unspecified atrial flutter; M10.9 Gout, unspecified
CPT/HCPCS: 36415 ×4; 70450; 71045; 73130; 80053 ×4; 80061; 81001; 82550; 82553; 83036; 83880; 84443; 84484; 84550; 85025 ×4; 87040; 87086; 93005; 93306; 93880; 93971; 97116; 97139; 97162; 97530; 99284; G0378 ×4; J0696 ×2; J1940 ×4; J2270; J2405; J2930; J7050; J7512 ×2; S0164 ×3; U0002

== ENCOUNTER 2020-06-21 12:13 | Inpatient (IN) | payer MEDICARE ==
[~2020-06-21] VITALS: Ht 175.3 cm; Wt 117.9 kg
[~2020-06-21 12:13] MED LIST changes: +CARAFATE1 GM PO; +Colchicine PO; +GABAPENTIN400 MG PO; +INDOMETHACIN25 MG PO; +PREDNISONE20 MG PO; +PRILOSEC10 M1 PO
[2020-06-21] MEDS ORDERED: ONDANSETRON HCL INJ 2MG/ML 2ML 2 MG/ML VIAL IV NR (12:59)
[2020-06-21] MEDS ORDERED: MORPHINE SULFATE 2 MG/ML SYR 1ML IV NR (13:00)
[2020-06-21 13:17] LABS: BASOPHILS % 0.3 % (0.0-1.0); EOSINOPHILS % 0.2 % (0.0-6.0); HEMATOCRIT 35.6 % (38.2-49.6); HEMOGLOBIN 10.7 g/dL (14.0-18.0); LYMPHOCYTES # (AUTO) 1.4 (1.0-3.2); LYMPHOCYTES % 15.9 % (18.0-39.1); MEAN CORPUSCULAR HGB CONC 30.1 g/dL (31-35); MEAN CORPUSCULAR VOLUME 76.6 fL (81-99); MONOCYTES # (AUTO) 0.9 (0.2-0.8); NEUTROPHILS # (AUTO) 6.6 (2.1-6.9); NEUTROPHILS % 73.2 % (38.7-80.0); PLATELET COUNT 258 x10e3/uL (140-360); RED BLOOD COUNT 4.65 x10e6/uL (4.3-5.7); RED CELL DISTRIBUTION WIDTH 17.3 % (11.7-14.4)
[2020-06-21 13:22] LABS: INR 1.34; PROTHROMBIN TIME 17.2 seconds (11.9-14.5)
[2020-06-21] MEDS ORDERED: SODIUM CHLORIDE 0.9% 1000ML 1,000 ML ONE (13:22)
[2020-06-21 13:23] LABS: PARTIAL THROMBOPLASTIN TIME 40.4 seconds (23.8-35.5)
[2020-06-21] MEDS ORDERED: ALBUTEROL/IPRATROPIUM 3 ML NEB NEB ONE (13:30)
[2020-06-21 13:33] LABS: ALANINE AMINOTRANSFERASE 15 IU/L (0-55); ALBUMIN 3.6 g/dL (3.5-5.0); ALBUMIN/GLOBULIN RATIO 0.8 (0.8-2.0); ALKALINE PHOSPHATASE 112 IU/L (40-150); ANION GAP 15.5 mmol/L (8-16); BLOOD UREA NITROGEN 22 mg/dL (7-26); BUN/CREATININE RATIO 17 (6-25); CALCIUM 9.6 mg/dL (8.4-10.2); CARBON DIOXIDE 27 mmol/L (22-29); CHLORIDE 97 mmol/L (98-107); CREATINE KINASE 156 IU/L (30-200); CREATININE, SERUM 1.29 mg/dL (0.72-1.25); EST GLOMERULAR FILTRATION RATE > 60 ML/MIN (60-); GLUCOSE 119 mg/dL (74-118); POTASSIUM 3.5 mmol/L (3.5-5.1); SODIUM 136 mmol/L (136-145)
[2020-06-21 15:55] LABS: CLARITY,URINE CLEAR (CLEAR); COLOR,URINE YELLOW (YELLOW); LEUKOCYTE ESTERASE ,URINE NEGATIVE (NEGATIVE); NITRITE,URINE NEGATIVE (NEGATIVE); PROTEIN,URINE DIPSTICK 1+ (NEGATIVE)
[2020-06-21 15:56] LABS: BACTERIA,URINE RARE /HPF; BILIRUBIN,URINE NEGATIVE (NEGATIVE); EPITHELIAL CELLS,URINE FEW /LPF; KETONES,URINE NEGATIVE (NEGATIVE); URINE UROBILINOGEN 0.2 mg/dL (0.2 - 1)
[2020-06-21] MEDS: FUROSEMIDE INJ 10 MG/ML 4 ML VIAL IV SCH ×2 (16:00→20:25)
[2020-06-21] MEDS ORDERED: METHYLPREDNISOLONE SOD SUCC 125 MG/2ML VIAL IV NR (16:00)
[2020-06-21] MEDS ORDERED: ALBUTEROL/IPRATROPIUM 3 ML NEB NEB PRN (16:15)
[2020-06-21] MEDS ORDERED: MORPHINE SULFATE 2 MG/ML SYR 1ML IV PRN (16:15)
[2020-06-21] MEDS ORDERED: ONDANSETRON HCL INJ 2MG/ML 2ML 2 MG/ML VIAL IV PRN (16:15)
[2020-06-21 16:16] LABS: ERYTHROCYTE SEDIMENTATION RATE 55 mm/hr (0-13)
[2020-06-21 20:00] VITALS: BP 140/77
[2020-06-21 20:07] VITALS: BP 164/74
[2020-06-21] MEDS: INDOMETHACIN 25 MG CAP PO SCH ×2 (20:07→20:53)
[2020-06-21] MEDS: ATORVASTATIN 10 MG TAB PO SCH (20:25)
[2020-06-21 21:00] VITALS: BP 164/74
[2020-06-22] VITALS (9 sets, daily range): BP systolic 120–152; BP diastolic 50–60
[2020-06-22 06:37] LABS: BASOPHILS % 0.1 % (0.0-1.0); HEMATOCRIT 33.8 % (38.2-49.6); HEMOGLOBIN 10.2 g/dL (14.0-18.0); LYMPHOCYTES # (AUTO) 0.7 (1.0-3.2); MEAN CORPUSCULAR HEMOGLOBIN 23.2 pg (28-32); MEAN CORPUSCULAR HGB CONC 30.2 g/dL (31-35); MEAN CORPUSCULAR VOLUME 76.8 fL (81-99); MONOCYTES # (AUTO) 0.3 (0.2-0.8); MONOCYTES % 4.3 % (4.4-11.3); NEUTROPHILS # (AUTO) 6.1 (2.1-6.9); PLATELET COUNT 255 x10e3/uL (140-360)
[2020-06-22 07:02] LABS: CREATINE KINASE MB 1.2 ng/mL (0-5.0)
[2020-06-22] MEDS: OMEPRAZOLE 20 MG CAP PO SCH (07:06)
[2020-06-22 07:22] LABS: ALBUMIN 2.9 g/dL (3.5-5.0); ALBUMIN/GLOBULIN RATIO 0.7 (0.8-2.0); ANION GAP 14.7 mmol/L (8-16); CALCIUM 9.1 mg/dL (8.4-10.2); CREATININE, SERUM 1.43 mg/dL (0.72-1.25); POTASSIUM 3.7 mmol/L (3.5-5.1)
[2020-06-22] MEDS: METOPROLOL TARTRATE 50 MG TAB PO SCH (08:31)
[2020-06-22] MEDS: POTASSIUM CHLORIDE 10MEQ EA PO SCH (08:31)
[2020-06-22] MEDS: COLCHICINE 0.6 MG TAB PO SCH ×2 (08:31→16:01)
[2020-06-22] MEDS: FUROSEMIDE INJ 10 MG/ML 4 ML VIAL IV SCH ×2 (08:31→20:45)
[2020-06-22] MEDS: METOLAZONE 5 MG TAB PO SCH (08:31)
[2020-06-22] MEDS: MAGNESIUM OXIDE 400 MG TAB PO SCH ×2 (08:31→16:01)
[2020-06-22] MEDS: RIVAROXABAN 20 MG TABLET PO SCH (08:31)
[2020-06-22] MEDS: INDOMETHACIN 25 MG CAP PO SCH ×3 (09:55→20:45)
[2020-06-22] MEDS: TAMSULOSIN HCL 0.4 MG CAP PO SCH (16:01)
[2020-06-22] MEDS: ATORVASTATIN 10 MG TAB PO SCH (20:45)
[2020-06-23] VITALS (7 sets, daily range): BP systolic 117–159; BP diastolic 47–71
[2020-06-23] MEDS: OMEPRAZOLE 20 MG CAP PO SCH (08:09)
[2020-06-23] MEDS: MAGNESIUM OXIDE 400 MG TAB PO SCH ×2 (08:09→17:16)
[2020-06-23] MEDS: METOPROLOL TARTRATE 50 MG TAB PO SCH (08:09)
[2020-06-23] MEDS: FUROSEMIDE INJ 10 MG/ML 4 ML VIAL IV SCH ×2 (08:09→20:45)
[2020-06-23] MEDS: POTASSIUM CHLORIDE 10MEQ EA PO SCH (08:09)
[2020-06-23] MEDS: METOLAZONE 5 MG TAB PO SCH (08:09)
[2020-06-23] MEDS: COLCHICINE 0.6 MG TAB PO SCH ×2 (08:09→17:16)
[2020-06-23] MEDS: RIVAROXABAN 20 MG TABLET PO SCH (08:09)
[2020-06-23] MEDS: INDOMETHACIN 25 MG CAP PO SCH ×3 (08:09→20:45)
[2020-06-23] MEDS: TAMSULOSIN HCL 0.4 MG CAP PO SCH (17:16)
[2020-06-23] MEDS ORDERED: ACETAMINOPHEN 325 MG TAB PO PRN (17:45)
[2020-06-23] MEDS ORDERED: ONDANSETRON HCL INJ 2MG/ML 2ML 2 MG/ML VIAL IV PRN (17:45)
[2020-06-23] MEDS ORDERED: DEXTROSE 50% SYRINGE 50 ML IV PRN (17:45)
[2020-06-23] MEDS ORDERED: POLYETHYLENE GLYCOL 3350 17 GM PACK PO PRN (17:45)
[2020-06-23] MEDS ORDERED: HYDROCODONE/APAP 5MG-325MG TAB PO PRN (17:45)
[2020-06-23] MEDS ORDERED: DOCUSATE SODIUM 100 MG CAP PO PRN (17:45)
[2020-06-23] MEDS ORDERED: HYDRALAZINE HCL 20 MG/ML VIAL IV PRN (17:45)
[2020-06-23] MEDS ORDERED: ALBUTEROL/IPRATROPIUM 3 ML NEB NEB PRN (17:45)
[2020-06-23] MEDS ORDERED: MELATONIN 5 MG TABLET PO PRN (21:00)
[2020-06-23] MEDS: ATORVASTATIN 10 MG TAB PO SCH (21:07)
[2020-06-24] VITALS (9 sets, daily range): BP systolic 122–156; BP diastolic 52–78
[2020-06-24 05:54] LABS: BASOPHILS % 0.5 % (0.0-1.0); EOSINOPHILS # (AUTO) 0.1 (0.0-0.4); EOSINOPHILS % 1.6 % (0.0-6.0); HEMATOCRIT 36.3 % (38.2-49.6); HEMOGLOBIN 11.1 g/dL (14.0-18.0); LYMPHOCYTES # (AUTO) 2.4 (1.0-3.2); LYMPHOCYTES % 37.2 % (18.0-39.1); MEAN CORPUSCULAR HEMOGLOBIN 23.2 pg (28-32); MEAN CORPUSCULAR HGB CONC 30.6 g/dL (31-35); MEAN CORPUSCULAR VOLUME 75.9 fL (81-99); MONOCYTES # (AUTO) 0.6 (0.2-0.8); NEUTROPHILS # (AUTO) 3.2 (2.1-6.9); NEUTROPHILS % 50.1 % (38.7-80.0); PLATELET COUNT 308 x10e3/uL (140-360); RED BLOOD COUNT 4.78 x10e6/uL (4.3-5.7)
[2020-06-24 06:30] LABS: ALBUMIN 3.1 g/dL (3.5-5.0); ALBUMIN/GLOBULIN RATIO 0.8 (0.8-2.0); ANION GAP 14.4 mmol/L (8-16); CREATININE, SERUM 1.51 mg/dL (0.72-1.25); MAGNESIUM 1.7 MG/DL (1.3-2.1); PHOSPHORUS 3.4 MG/DL (2.3-4.7); POTASSIUM 3.4 mmol/L (3.5-5.1)
[2020-06-24] MEDS: METOPROLOL TARTRATE 50 MG TAB PO SCH (09:00)
[2020-06-24] MEDS: PANTOPRAZOLE SOD 40 MG TABEC PO SCH (09:12)
[2020-06-24] MEDS: COLCHICINE 0.6 MG TAB PO SCH ×2 (09:12→17:13)
[2020-06-24] MEDS: OMEPRAZOLE 20 MG CAP PO SCH (09:12)
[2020-06-24] MEDS: INDOMETHACIN 25 MG CAP PO SCH ×2 (09:13→14:47)
[2020-06-24] MEDS: POTASSIUM CHLORIDE 10MEQ EA PO SCH (09:13)
[2020-06-24] MEDS: MAGNESIUM OXIDE 400 MG TAB PO SCH ×2 (09:14→17:13)
[2020-06-24] MEDS: CEFDINIR 300 MG CAP PO SCH ×2 (09:14→17:13)
[2020-06-24] MEDS: RIVAROXABAN 20 MG TABLET PO SCH (09:14)
[2020-06-24] MEDS: METOLAZONE 5 MG TAB PO SCH (09:15)
[2020-06-24] MEDS: FUROSEMIDE INJ 10 MG/ML 4 ML VIAL IV SCH ×2 (09:18→17:00)
[2020-06-24] MEDS ORDERED: MORPHINE SULFATE 2 MG/ML SYR 1ML IV PRN (17:00)
[2020-06-24] MEDS: TAMSULOSIN HCL 0.4 MG CAP PO SCH (17:13)
[2020-06-24] MEDS: PREDNISONE 20 MG TAB PO SCH (17:14)
[2020-06-24] MEDS: ATORVASTATIN 10 MG TAB PO SCH (21:12)
[2020-06-25] VITALS (7 sets, daily range): BP systolic 112–144; BP diastolic 53–72
[2020-06-25] MEDS: FUROSEMIDE INJ 10 MG/ML 4 ML VIAL IV SCH (09:14)
[2020-06-25] MEDS: RIVAROXABAN 20 MG TABLET PO SCH (09:14)
[2020-06-25] MEDS: OMEPRAZOLE 20 MG CAP PO SCH (09:14)
[2020-06-25] MEDS: PREDNISONE 20 MG TAB PO SCH (09:14)
[2020-06-25] MEDS: COLCHICINE 0.6 MG TAB PO SCH ×2 (09:14→18:22)
[2020-06-25] MEDS: PANTOPRAZOLE SOD 40 MG TABEC PO SCH (09:14)
[2020-06-25] MEDS: METOLAZONE 5 MG TAB PO SCH (09:14)
[2020-06-25] MEDS: MAGNESIUM OXIDE 400 MG TAB PO SCH ×2 (09:14→18:22)
[2020-06-25] MEDS: CEFDINIR 300 MG CAP PO SCH ×2 (09:14→18:22)
[2020-06-25] MEDS: METOPROLOL TARTRATE 50 MG TAB PO SCH (09:22)
[2020-06-25] MEDS: POTASSIUM CHLORIDE 10MEQ EA PO SCH (09:23)
[2020-06-25] MEDS ORDERED: ONDANSETRON HCL 4 MG ORAL DISINTEGRATING TAB PO PRN (14:15)
[2020-06-25 18:05] LABS: ANION GAP 17.1 mmol/L (8-16); CALCIUM 9.7 mg/dL (8.4-10.2); CREATININE, SERUM 1.61 mg/dL (0.72-1.25); POTASSIUM 4.1 mmol/L (3.5-5.1)
[2020-06-25] MEDS: TAMSULOSIN HCL 0.4 MG CAP PO SCH (18:22)
[2020-06-25] MEDS ORDERED: SODIUM CHLORIDE 0.9% 500ML 500 ML IV ONE (19:40)
[2020-06-25] MEDS: ATORVASTATIN 10 MG TAB PO SCH (21:23)
[2020-06-26] VITALS: BP 121/47
[2020-06-26 04:00] VITALS: BP 138/72
[2020-06-26] MEDS: PANTOPRAZOLE SOD 40 MG TABEC PO SCH (07:30)
[2020-06-26 07:41] VITALS: BP 123/46
[2020-06-26 07:50] VITALS: BP 123/46
[2020-06-26] MEDS: OMEPRAZOLE 20 MG CAP PO SCH (08:00)
[2020-06-26 08:18] LABS: ALBUMIN 3.3 g/dL (3.5-5.0); ALBUMIN/GLOBULIN RATIO 0.9 (0.8-2.0); ANION GAP 14.2 mmol/L (8-16); CALCIUM 9.1 mg/dL (8.4-10.2); CREATININE, SERUM 1.42 mg/dL (0.72-1.25); POTASSIUM 3.2 mmol/L (3.5-5.1)
[2020-06-26] MEDS ORDERED: METOPROLOL SUCCINATE 50 MG TAB XL PO SCH (09:00)
[2020-06-26] MEDS: RIVAROXABAN 20 MG TABLET PO SCH (09:06)
[2020-06-26] MEDS: CEFDINIR 300 MG CAP PO SCH (09:06)
[2020-06-26] MEDS: PREDNISONE 20 MG TAB PO SCH (09:06)
[2020-06-26] MEDS: POTASSIUM CHLORIDE 10MEQ EA PO SCH (09:07)
[2020-06-26] MEDS ORDERED: POTASSIUM CHLORIDE 20 MEQ TAB CR PO ONE (11:30)
[2020-06-26 11:46] VITALS: BP 124/83
[2020-06-26] MEDS ORDERED: CEFDINIR300 MG PO (12:16)
== END 2020-06-26 13:26 | disposition home or self-care (01) | DRG 292 ==
LOC: ER 12:33 → ERHOLD 16:09 → MED/SURG3 18:08 → OBSVTOIN 06-24 08:07
PROVIDERS: ADMIT Internal Medicine; ATTEND Internal Medicine
DX: I11.0 Hypertensive heart disease with heart failure (principal); N17.9 Acute kidney failure, unspecified; I50.33 Acute on chronic diastolic (congestive) heart failure; I48.91 Unspecified atrial fibrillation; M10.031 Idiopathic gout, right wrist; S00.03XA Contusion of scalp, initial encounter; W01.198A Fall on same level from slipping, tripping and stumbling with subsequent striking against other object, initial encounter; Y93.89 Activity, other specified; Y92.014 Private driveway to single-family (private) house as the place of occurrence of the external cause; Z83.3 Family history of diabetes mellitus; Z82.49 Family history of ischemic heart disease and other diseases of the circulatory system; N40.0 Benign prostatic hyperplasia without lower urinary tract symptoms; Z79.01 Long term (current) use of anticoagulants; E78.5 Hyperlipidemia, unspecified; I25.10 Atherosclerotic heart disease of native coronary artery without angina pectoris; I73.9 Peripheral vascular disease, unspecified; Z95.1 Presence of aortocoronary bypass graft; Z95.810 Presence of automatic (implantable) cardiac defibrillator; T50.1X5A Adverse effect of loop [high-ceiling] diuretics, initial encounter; Z20.828 Contact with and (suspected) exposure to other viral communicable diseases
CPT/HCPCS: 36415; 70450; 71045; 72125; 80048; 80053; 80061; 81001; 82550; 82553; 83735; 83880; 84100; 84484; 84550; 85025; 85610; 85651; 85730; 87040; 87086; 99284; G0378; J1940; J2270; J2405; J2930; J7030; J7040; J7512; U0002

== ENCOUNTER → 2020-07-31 | Outpatient (CLI) | payer MEDICARE ==
[~2020-07-31] MED LIST changes: +CEFDINIR300 MG PO
== END ==
LOC: CT 07:37
PROVIDERS: ATTEND Specialist
DX: S00.83XA Contusion of other part of head, initial encounter (principal)
CPT/HCPCS: 70450

== ENCOUNTER 2020-09-26 09:17 | Emergency (ER) | payer MEDICARE ==
[~2020-09-26] VITALS: Ht 175.3 cm; Wt 117.9 kg
[2020-09-26] MEDS ORDERED: KETOROLAC TROMETHAMINE 30 MG/ML VIAL IV STA (09:22)
[2020-09-26] MEDS ORDERED: METHYLPREDNISOLONE SOD SUCC 125 MG/2ML VIAL IV ONE (09:30)
[2020-09-26] MEDS ORDERED: HYDROCODONE/APAP 10MG-325MG TAB PO ONE (09:30)
[2020-09-26] MEDS ORDERED: ASPIRIN 81 MG CHEW TAB PO ONE (09:30)
[2020-09-26] MEDS ORDERED: ALBUTEROL/IPRATROPIUM 3 ML NEB NEB ONE (10:15)
[2020-09-26] MEDS ORDERED: ALBUTEROL/IPRATROPIUM 3 ML NEB ONE (10:26)
[2020-09-26 10:34] LABS: BASOPHILS % 0.2 % (0.0-1.0); HEMATOCRIT 34.3 % (38.2-49.6); LYMPHOCYTES # (AUTO) 1.2 (1.0-3.2); LYMPHOCYTES % 13.7 % (18.0-39.1); MEAN CORPUSCULAR HEMOGLOBIN 22.1 pg (28-32); MEAN CORPUSCULAR HGB CONC 29.2 g/dL (31-35); MEAN CORPUSCULAR VOLUME 75.9 fL (81-99); MONOCYTES # (AUTO) 1.6 (0.2-0.8); MONOCYTES % 18.5 % (4.4-11.3); NEUTROPHILS # (AUTO) 5.6 (2.1-6.9); PLATELET COUNT 253 x10e3/uL (140-360); RED BLOOD COUNT 4.52 x10e6/uL (4.3-5.7)
[2020-09-26 11:00] LABS: ALANINE AMINOTRANSFERASE 12 IU/L (0-55); ALBUMIN 3.4 g/dL (3.5-5.0); ALBUMIN/GLOBULIN RATIO 0.9 (0.8-2.0); ALKALINE PHOSPHATASE 118 IU/L (40-150); ANION GAP 16.4 mmol/L (8-16); BLOOD UREA NITROGEN 25 mg/dL (7-26); BUN/CREATININE RATIO 19 (6-25); CALCIUM 9.2 mg/dL (8.4-10.2); CARBON DIOXIDE 26 mmol/L (22-29); CHLORIDE 102 mmol/L (98-107); CREATINE KINASE 491 IU/L (30-200); CREATININE, SERUM 1.31 mg/dL (0.72-1.25); EST GLOMERULAR FILTRATION RATE > 60 ML/MIN (60-); GLUCOSE 141 mg/dL (74-118); POTASSIUM 3.4 mmol/L (3.5-5.1); SODIUM 141 mmol/L (136-145)
[2020-09-26] MEDS ORDERED: COLCRYS0.6 MG PO (11:38)
[2020-09-26] MEDS ORDERED: PREDNISONE20 MG PO (11:38)
[2020-09-26 12:31] VITALS: BP 147/85
== END 2020-09-26 12:54 | disposition home or self-care (01) ==
LOC: ER 09:23
DX: M10.9 Gout, unspecified (principal); M79.605 Pain in left leg; M79.604 Pain in right leg; I10 Essential (primary) hypertension; J44.9 Chronic obstructive pulmonary disease, unspecified; I50.9 Heart failure, unspecified; K21.9 Gastro-esophageal reflux disease without esophagitis; Z95.1 Presence of aortocoronary bypass graft; Z95.810 Presence of automatic (implantable) cardiac defibrillator
CPT/HCPCS: 36415; 70450; 71045; 73522; 80053; 82550; 82553; 84484; 84550; 85025; 85651; 86140; 99284

== ENCOUNTER 2021-09-24 12:04 | Emergency (ER) | payer MEDICARE ==
[~2021-09-24] VITALS: Ht 175.3 cm; Wt 117.9 kg
[~2021-09-24 12:04] MED LIST changes: +COLCRYS0.6 MG PO
[2021-09-24] MEDS ORDERED: FUROSEMIDE INJ 10 MG/ML 4 ML VIAL IV ONE (12:30)
[2021-09-24 12:33] LABS: BASOPHILS % 0.5 % (0.0-1.0); EOSINOPHILS % 0.2 % (0.0-6.0); HEMATOCRIT 33.5 % (38.2-49.6); HEMOGLOBIN 9.9 g/dL (14.0-18.0); LYMPHOCYTES # (AUTO) 1.7 (1.0-3.2); LYMPHOCYTES % 37.6 % (18.0-39.1); MEAN CORPUSCULAR HGB CONC 29.6 g/dL (31-35); MEAN CORPUSCULAR VOLUME 81.3 fL (81-99); MONOCYTES # (AUTO) 1.1 (0.2-0.8); MONOCYTES % 23.9 % (4.4-11.3); NEUTROPHILS # (AUTO) 1.7 (2.1-6.9); NEUTROPHILS % 37.6 % (38.7-80.0); PLATELET COUNT 161 x10e3/uL (140-360); RED BLOOD COUNT 4.12 x10e6/uL (4.3-5.7); RED CELL DISTRIBUTION WIDTH 18.6 % (11.7-14.4)
[2021-09-24 12:44] LABS: INR 1.15; PROTHROMBIN TIME 15.5 seconds (11.9-14.5)
[2021-09-24 12:50] LABS: ALBUMIN/GLOBULIN RATIO 1.3 (0.8-2.0); ANION GAP 15.4 mmol/L (8-16); CALCIUM 9.1 mg/dL (8.4-10.2); CREATININE, SERUM 1.08 mg/dL (0.72-1.25); POTASSIUM 3.4 mmol/L (3.5-5.1)
[2021-09-24] MEDS ORDERED: DECADRON4 M1 PO (13:38)
[2021-09-24] MEDS ORDERED: PROAIR HFA INH8.5 GM PEG (13:38)
[2021-09-24] MEDS ORDERED: CLONIDINE HCL 0.2 MG TAB PO ONE (15:15)
[2021-09-24] MEDS ORDERED: CLONIDINE HCL 0.2 MG TAB ONE (15:25)
== END 2021-09-24 15:05 | disposition home or self-care (01) ==
LOC: ER 12:08
DX: U07.1 COVID-19 (principal); R06.02 Shortness of breath; I50.9 Heart failure, unspecified; I10 Essential (primary) hypertension; J44.9 Chronic obstructive pulmonary disease, unspecified; K21.9 Gastro-esophageal reflux disease without esophagitis; M10.9 Gout, unspecified; Z95.810 Presence of automatic (implantable) cardiac defibrillator; Z95.1 Presence of aortocoronary bypass graft
CPT/HCPCS: 36415; 71045; 80053; 83880; 84484; 85025; 85610; 93005; 99284; J1940; U0002

== ENCOUNTER 2021-10-26 10:43 | Inpatient (IN) | payer MEDICARE ==
[~2021-10-26] VITALS: Ht 175.3 cm; Wt 117.9 kg
[~2021-10-26 10:43] MED LIST changes: +DECADRON4 M1 PO; +PROAIR HFA INH8.5 GM PEG
[2021-10-26 11:06] LABS: EOSINOPHILS # (AUTO) 0.1 (0.0-0.4); EOSINOPHILS % 2.3 % (0.0-6.0); HEMATOCRIT 38.3 % (38.2-49.6); HEMOGLOBIN 11.6 g/dL (14.0-18.0); LYMPHOCYTES # (AUTO) 1.7 (1.0-3.2); LYMPHOCYTES % 43.1 % (18.0-39.1); MEAN CORPUSCULAR HEMOGLOBIN 24.4 pg (28-32); MEAN CORPUSCULAR HGB CONC 30.3 g/dL (31-35); MEAN CORPUSCULAR VOLUME 80.5 fL (81-99); MONOCYTES # (AUTO) 0.3 (0.2-0.8); MONOCYTES % 7.7 % (4.4-11.3); NEUTROPHILS # (AUTO) 1.8 (2.1-6.9); NEUTROPHILS % 45.6 % (38.7-80.0); PLATELET COUNT 269 x10e3/uL (140-360); RED BLOOD COUNT 4.76 x10e6/uL (4.3-5.7); RED CELL DISTRIBUTION WIDTH 17.9 % (11.7-14.4)
[2021-10-26 11:16] LABS: INR 1.23; PROTHROMBIN TIME 16.6 seconds (11.9-14.5)
[2021-10-26 11:17] LABS: PARTIAL THROMBOPLASTIN TIME 26.5 seconds (23.8-35.5)
[2021-10-26 11:26] LABS: ALBUMIN 3.7 g/dL (3.5-5.0); ANION GAP 13.5 mmol/L (8-16); CALCIUM 9.1 mg/dL (8.4-10.2); CREATININE, SERUM 1.19 mg/dL (0.72-1.25); POTASSIUM 4.5 mmol/L (3.5-5.1)
[2021-10-26 11:33] LABS: CREATINE KINASE MB 1.2 ng/mL (0-5.0)
[2021-10-26] MEDS ORDERED: PROTONIX20 MG PO (11:38)
[2021-10-26] MEDS ORDERED: POTASSIUM CHLO20 ME1 PO (11:38)
[2021-10-26] MEDS ORDERED: LISINOPRIL5 MG PO (11:38)
[2021-10-26] MEDS ORDERED: TRELEGY ELLIPT1 EACH INH (11:38)
[2021-10-26] MEDS ORDERED: INDOMETHACIN50 MG PO (11:38)
[2021-10-26] MEDS ORDERED: FUROSEMIDE INJ 10 MG/ML 4 ML VIAL IV ONE (12:15)
[2021-10-26] MEDS ORDERED: NITROGLYCERIN 2% OINT 1 GM PKT TOP ONE (12:15)
[2021-10-26] MEDS ORDERED: FUROSEMIDE INJ 10 MG/ML 4 ML VIAL ONE (12:31)
[2021-10-26 16:18] VITALS: BP 199/92
[2021-10-26] MEDS: FUROSEMIDE INJ 10 MG/ML 4 ML VIAL IV SCH (17:01)
[2021-10-26] MEDS: METOPROLOL TARTRATE 50 MG TAB PO SCH (17:01)
[2021-10-26] MEDS: LISINOPRIL 2.5 MG TAB PO SCH (17:02)
[2021-10-26] MEDS: NITROGLYCERIN 2% OINT 1 GM PKT TOP SCH (18:00)
[2021-10-26 18:37] LABS: CREATINE KINASE MB 1.3 ng/mL (0-5.0)
[2021-10-26 20:00] VITALS: BP 167/93
[2021-10-26 21:00] VITALS: BP 167/93
[2021-10-26] MEDS ORDERED: SODIUM CHLORIDE 0.9% 250ML 250 ML ONE (21:43)
[2021-10-26 23:50] VITALS: BP 127/65
[2021-10-27] VITALS (7 sets, daily range): BP systolic 129–162; BP diastolic 57–75
[2021-10-27 02:58] LABS: CREATINE KINASE MB 1.1 ng/mL (0-5.0)
[2021-10-27] MEDS: ALBUTEROL SULF 0.083% NEB SOLN 3 ML NEB NEB PRN ×2 (03:00→07:35)
[2021-10-27] MEDS: NITROGLYCERIN 2% OINT 1 GM PKT TOP SCH ×2 (05:47)
[2021-10-27 05:55] LABS: BASOPHILS % 0.7 % (0.0-1.0); EOSINOPHILS # (AUTO) 0.1 (0.0-0.4); EOSINOPHILS % 1.4 % (0.0-6.0); HEMOGLOBIN 11.8 g/dL (14.0-18.0); LYMPHOCYTES # (AUTO) 1.6 (1.0-3.2); LYMPHOCYTES % 37.9 % (18.0-39.1); MEAN CORPUSCULAR HEMOGLOBIN 24.8 pg (28-32); MEAN CORPUSCULAR HGB CONC 31.1 g/dL (31-35); MEAN CORPUSCULAR VOLUME 79.8 fL (81-99); MONOCYTES # (AUTO) 0.4 (0.2-0.8); MONOCYTES % 9.1 % (4.4-11.3); NEUTROPHILS # (AUTO) 2.2 (2.1-6.9); NEUTROPHILS % 50.7 % (38.7-80.0); PLATELET COUNT 204 x10e3/uL (140-360); RED BLOOD COUNT 4.76 x10e6/uL (4.3-5.7); RED CELL DISTRIBUTION WIDTH 17.6 % (11.7-14.4)
[2021-10-27 06:14] LABS: ALBUMIN 3.6 g/dL (3.5-5.0); ALBUMIN/GLOBULIN RATIO 1.2 (0.8-2.0); ANION GAP 12.3 mmol/L (8-16); CALCIUM 9.1 mg/dL (8.4-10.2); CREATININE, SERUM 1.18 mg/dL (0.72-1.25); POTASSIUM 3.3 mmol/L (3.5-5.1)
[2021-10-27 06:31] LABS: CREATINE KINASE MB 1.1 ng/mL (0-5.0)
[2021-10-27] MEDS ORDERED: CEFTRIAXONE 2 GM VIAL ONE (07:47)
[2021-10-27] MEDS ORDERED: ACETAMINOPHEN650 M1 PO (07:48)
[2021-10-27] MEDS ORDERED: SODIUM CHLORIDE 0.9% 100 ML ONE (08:39)
[2021-10-27] MEDS: CEFTRIAXONE 2 GM in SODIUM CHLORIDE 0.9% 100 ML IV SCH (09:25)
[2021-10-27] MEDS: ZINC SULFATE 50 MG CAP PO SCH (09:25)
[2021-10-27] MEDS: DEXAMETHASONE SOD PHOS 10 MG/1 ML VIAL IV SCH (09:25)
[2021-10-27] MEDS: ASCORBIC ACID 500 MG TAB PO SCH ×2 (09:25→16:00)
[2021-10-27] MEDS: LISINOPRIL 2.5 MG TAB PO SCH (09:26)
[2021-10-27] MEDS: METOPROLOL TARTRATE 50 MG TAB PO SCH ×2 (09:26→16:00)
[2021-10-27] MEDS: FUROSEMIDE INJ 10 MG/ML 4 ML VIAL IV SCH ×2 (09:30→16:00)
[2021-10-27] MEDS ORDERED: MAGNESIUM HYDROXIDE 30 ML UDC PO PRN (10:15)
[2021-10-27] MEDS ORDERED: MAGNESIUM/ALUMINUM/SIMETHICONE 30 ML UDC PO PRN (10:15)
[2021-10-27] MEDS ORDERED: HYDROCODONE/APAP 7.5MG-325MG 1 EA TAB PO PRN (10:15)
[2021-10-27] MEDS: ALBUTEROL/IPRATROPIUM 3 ML NEB NEB SCH ×4 (10:15→19:38)
[2021-10-27] MEDS ORDERED: ACETAMINOPHEN 325 MG TAB PO PRN (10:15)
[2021-10-27] MEDS ORDERED: ONDANSETRON HCL INJ 2MG/ML 2ML 2 MG/ML VIAL IV PRN (10:15)
[2021-10-27] MEDS ORDERED: MAGNESIUM/ALUMINUM/SIMETHICONE 30 ML UDC PO ONE (10:45)
[2021-10-27] MEDS ORDERED: POTASSIUM CHLORIDE 10MEQ EA PO ONE (10:45)
[2021-10-27] MEDS: ISOSORBIDE MONONITRATE 30 MG TAB CR PO SCH (10:46)
[2021-10-27] MEDS: POTASSIUM CHLORIDE 10MEQ EA PO SCH (16:00)
[2021-10-27] MEDS ORDERED: REMDESIVIR 100MG 200 MG in SODIUM CHLORIDE 0.9% 100 ML IV ONE (16:00)
[2021-10-27] MEDS: SENNA-S TABLET PO SCH (16:00)
[2021-10-27] MEDS: RIVAROXABAN 20 MG TABLET PO SCH (16:00)
[2021-10-27] MEDS: FAMOTIDINE 20 MG TAB PO SCH (16:00)
[2021-10-27] MEDS: TAMSULOSIN HCL 0.4 MG CAP PO SCH (16:00)
[2021-10-27] MEDS ORDERED: IOPAMIDOL 370 MG/ML 200 ML INFUS..BTL INJ ONE (19:40)
[2021-10-27] MEDS ORDERED: SODIUM CHLORIDE 0.9% 50ML 50 ML ONE (19:40)
[2021-10-27] MEDS: ATORVASTATIN 10 MG TAB PO SCH (20:46)
[2021-10-28] VITALS (8 sets, daily range): BP systolic 102–166; BP diastolic 51–93
[2021-10-28] MEDS: ALBUTEROL/IPRATROPIUM 3 ML NEB NEB SCH ×4 (00:31→19:00)
[2021-10-28 06:09] LABS: BASOPHILS % 0.2 % (0.0-1.0); HEMATOCRIT 36.5 % (38.2-49.6); HEMOGLOBIN 11.3 g/dL (14.0-18.0); LYMPHOCYTES # (AUTO) 1.5 (1.0-3.2); LYMPHOCYTES % 25.4 % (18.0-39.1); MEAN CORPUSCULAR HEMOGLOBIN 24.5 pg (28-32); MONOCYTES # (AUTO) 0.6 (0.2-0.8); MONOCYTES % 9.4 % (4.4-11.3); NEUTROPHILS # (AUTO) 3.8 (2.1-6.9); NEUTROPHILS % 64.8 % (38.7-80.0); PLATELET COUNT 229 x10e3/uL (140-360); RED BLOOD COUNT 4.62 x10e6/uL (4.3-5.7); RED CELL DISTRIBUTION WIDTH 17.7 % (11.7-14.4)
[2021-10-28 06:31] LABS: ALBUMIN 3.6 g/dL (3.5-5.0); ALBUMIN/GLOBULIN RATIO 1.1 (0.8-2.0); ANION GAP 11.7 mmol/L (8-16); CALCIUM 9.5 mg/dL (8.4-10.2); CREATININE, SERUM 1.33 mg/dL (0.72-1.25); POTASSIUM 3.7 mmol/L (3.5-5.1)
[2021-10-28] MEDS: FAMOTIDINE 20 MG TAB PO SCH ×2 (08:30→16:54)
[2021-10-28] MEDS: POTASSIUM CHLORIDE 10MEQ EA PO SCH ×2 (09:34→17:28)
[2021-10-28] MEDS: ISOSORBIDE MONONITRATE 30 MG TAB CR PO SCH (09:34)
[2021-10-28] MEDS: DEXAMETHASONE SOD PHOS 10 MG/1 ML VIAL IV SCH (09:34)
[2021-10-28] MEDS: CEFTRIAXONE 2 GM in SODIUM CHLORIDE 0.9% 100 ML IV SCH (09:34)
[2021-10-28] MEDS: FUROSEMIDE INJ 10 MG/ML 4 ML VIAL IV SCH ×2 (09:34→17:22)
[2021-10-28] MEDS: SENNA-S TABLET PO SCH ×2 (09:35→17:29)
[2021-10-28] MEDS: PANTOPRAZOLE SOD 40 MG TABEC PO SCH (09:35)
[2021-10-28] MEDS: METOPROLOL TARTRATE 50 MG TAB PO SCH ×2 (09:35→17:29)
[2021-10-28] MEDS: LISINOPRIL 2.5 MG TAB PO SCH (09:35)
[2021-10-28] MEDS: ASCORBIC ACID 500 MG TAB PO SCH ×2 (09:35→17:29)
[2021-10-28] MEDS: ZINC SULFATE 50 MG CAP PO SCH (09:35)
[2021-10-28] MEDS ORDERED: REMDESIVIR 100MG 100 MG in SODIUM CHLORIDE 0.9% 100 ML IV SCH (14:00)
[2021-10-28] MEDS: TAMSULOSIN HCL 0.4 MG CAP PO SCH (17:22)
[2021-10-28] MEDS: RIVAROXABAN 20 MG TABLET PO SCH (17:29)
[2021-10-28] MEDS: ATORVASTATIN 10 MG TAB PO SCH (20:23)
[2021-10-28] MEDS: AZITHROMYCIN 250 MG TAB PO SCH (20:23)
[2021-10-29] VITALS (7 sets, daily range): BP systolic 113–169; BP diastolic 47–77
[2021-10-29] MEDS: ALBUTEROL/IPRATROPIUM 3 ML NEB NEB SCH ×2 (01:00→07:00)
[2021-10-29 06:11] LABS: BASOPHILS % 0.3 % (0.0-1.0); HEMATOCRIT 37.9 % (38.2-49.6); HEMOGLOBIN 11.3 g/dL (14.0-18.0); LYMPHOCYTES # (AUTO) 1.9 (1.0-3.2); LYMPHOCYTES % 28.1 % (18.0-39.1); MEAN CORPUSCULAR HEMOGLOBIN 24.1 pg (28-32); MEAN CORPUSCULAR HGB CONC 29.8 g/dL (31-35); MEAN CORPUSCULAR VOLUME 80.8 fL (81-99); MONOCYTES # (AUTO) 0.6 (0.2-0.8); MONOCYTES % 8.6 % (4.4-11.3); NEUTROPHILS # (AUTO) 4.2 (2.1-6.9); NEUTROPHILS % 62.7 % (38.7-80.0); PLATELET COUNT 219 x10e3/uL (140-360); RED BLOOD COUNT 4.69 x10e6/uL (4.3-5.7); RED CELL DISTRIBUTION WIDTH 17.7 % (11.7-14.4)
[2021-10-29 06:39] LABS: ALBUMIN 3.6 g/dL (3.5-5.0); ALBUMIN/GLOBULIN RATIO 1.1 (0.8-2.0); ANION GAP 13.3 mmol/L (8-16); CALCIUM 9.1 mg/dL (8.4-10.2); CREATININE, SERUM 1.49 mg/dL (0.72-1.25); POTASSIUM 3.3 mmol/L (3.5-5.1)
[2021-10-29] MEDS: FAMOTIDINE 20 MG TAB PO SCH ×2 (08:25→16:55)
[2021-10-29] MEDS: DEXAMETHASONE SOD PHOS 10 MG/1 ML VIAL IV SCH (09:21)
[2021-10-29] MEDS: FUROSEMIDE INJ 10 MG/ML 4 ML VIAL IV SCH ×2 (09:21→17:33)
[2021-10-29] MEDS: CEFTRIAXONE 2 GM in SODIUM CHLORIDE 0.9% 100 ML IV SCH (09:22)
[2021-10-29] MEDS: POTASSIUM CHLORIDE 10MEQ EA PO SCH ×2 (09:22→17:34)
[2021-10-29] MEDS: METOPROLOL TARTRATE 50 MG TAB PO SCH ×2 (09:22→17:35)
[2021-10-29] MEDS: ISOSORBIDE MONONITRATE 30 MG TAB CR PO SCH (09:22)
[2021-10-29] MEDS: SENNA-S TABLET PO SCH ×2 (09:23→17:34)
[2021-10-29] MEDS: PANTOPRAZOLE SOD 40 MG TABEC PO SCH (09:23)
[2021-10-29] MEDS: LISINOPRIL 2.5 MG TAB PO SCH (09:23)
[2021-10-29] MEDS: ZINC SULFATE 50 MG CAP PO SCH (09:23)
[2021-10-29] MEDS: ASCORBIC ACID 500 MG TAB PO SCH ×2 (09:23→17:34)
[2021-10-29] MEDS ORDERED: POTASSIUM CHLORIDE 10MEQ EA PO ONE (10:30)
[2021-10-29] MEDS ORDERED: IPRATROPIUM/ALBUTEROL SULFATE 4 GM INH INH PRN (12:45)
[2021-10-29] MEDS: TAMSULOSIN HCL 0.4 MG CAP PO SCH (17:33)
[2021-10-29] MEDS: RIVAROXABAN 20 MG TABLET PO SCH (17:34)
[2021-10-29] MEDS: ATORVASTATIN 10 MG TAB PO SCH (21:41)
[2021-10-29] MEDS: AZITHROMYCIN 250 MG TAB PO SCH (21:41)
[2021-10-30] VITALS (8 sets, daily range): BP systolic 113–152; BP diastolic 55–74
[2021-10-30] MEDS: FAMOTIDINE 20 MG TAB PO SCH ×2 (07:30→16:30)
[2021-10-30] MEDS: ISOSORBIDE MONONITRATE 30 MG TAB CR PO SCH (09:18)
[2021-10-30] MEDS: CEFTRIAXONE 2 GM in SODIUM CHLORIDE 0.9% 100 ML IV SCH (09:18)
[2021-10-30] MEDS: FUROSEMIDE INJ 10 MG/ML 4 ML VIAL IV SCH ×2 (09:18→17:19)
[2021-10-30] MEDS: DEXAMETHASONE SOD PHOS 10 MG/1 ML VIAL IV SCH (09:18)
[2021-10-30] MEDS: METOPROLOL TARTRATE 50 MG TAB PO SCH ×2 (09:19→17:00)
[2021-10-30] MEDS: SENNA-S TABLET PO SCH ×2 (09:19→17:20)
[2021-10-30] MEDS: PANTOPRAZOLE SOD 40 MG TABEC PO SCH (09:19)
[2021-10-30] MEDS: ASCORBIC ACID 500 MG TAB PO SCH ×2 (09:19→17:20)
[2021-10-30] MEDS: POTASSIUM CHLORIDE 10MEQ EA PO SCH ×2 (09:19→17:20)
[2021-10-30] MEDS: ZINC SULFATE 50 MG CAP PO SCH (09:19)
[2021-10-30] MEDS: LISINOPRIL 2.5 MG TAB PO SCH (09:19)
[2021-10-30 09:22] LABS: BASOPHILS % 0.4 % (0.0-1.0); EOSINOPHILS % 0.3 % (0.0-6.0); HEMATOCRIT 40.1 % (38.2-49.6); LYMPHOCYTES # (AUTO) 2.2 (1.0-3.2); LYMPHOCYTES % 31.3 % (18.0-39.1); MEAN CORPUSCULAR HEMOGLOBIN 24.2 pg (28-32); MEAN CORPUSCULAR HGB CONC 29.9 g/dL (31-35); MEAN CORPUSCULAR VOLUME 80.8 fL (81-99); MONOCYTES # (AUTO) 0.6 (0.2-0.8); MONOCYTES % 7.9 % (4.4-11.3); NEUTROPHILS # (AUTO) 4.2 (2.1-6.9); NEUTROPHILS % 59.8 % (38.7-80.0); PLATELET COUNT 233 x10e3/uL (140-360); RED BLOOD COUNT 4.96 x10e6/uL (4.3-5.7); RED CELL DISTRIBUTION WIDTH 17.8 % (11.7-14.4)
[2021-10-30 09:47] LABS: ALBUMIN 3.6 g/dL (3.5-5.0); ALBUMIN/GLOBULIN RATIO 1.1 (0.8-2.0); ANION GAP 13.2 mmol/L (8-16); CREATININE, SERUM 1.54 mg/dL (0.72-1.25); POTASSIUM 3.2 mmol/L (3.5-5.1)
[2021-10-30] MEDS ORDERED: ONDANSETRON HCL 4 MG ORAL DISINTEGRATING TAB PO PRN (11:45)
[2021-10-30] MEDS: TAMSULOSIN HCL 0.4 MG CAP PO SCH (17:19)
[2021-10-30] MEDS: RIVAROXABAN 20 MG TABLET PO SCH (17:20)
[2021-10-30] MEDS: AZITHROMYCIN 250 MG TAB PO SCH (21:00)
[2021-10-30] MEDS: ATORVASTATIN 10 MG TAB PO SCH (21:00)
[2021-10-31] VITALS (7 sets, daily range): BP systolic 109–166; BP diastolic 48–76
[2021-10-31 06:12] LABS: BASOPHILS % 0.4 % (0.0-1.0); EOSINOPHILS % 0.1 % (0.0-6.0); HEMATOCRIT 41.6 % (38.2-49.6); HEMOGLOBIN 12.4 g/dL (14.0-18.0); LYMPHOCYTES # (AUTO) 2.2 (1.0-3.2); LYMPHOCYTES % 30.4 % (18.0-39.1); MEAN CORPUSCULAR HEMOGLOBIN 24.2 pg (28-32); MEAN CORPUSCULAR HGB CONC 29.8 g/dL (31-35); MEAN CORPUSCULAR VOLUME 81.1 fL (81-99); MONOCYTES # (AUTO) 0.7 (0.2-0.8); MONOCYTES % 9.3 % (4.4-11.3); NEUTROPHILS # (AUTO) 4.4 (2.1-6.9); NEUTROPHILS % 59.4 % (38.7-80.0); PLATELET COUNT 235 x10e3/uL (140-360); RED BLOOD COUNT 5.13 x10e6/uL (4.3-5.7); RED CELL DISTRIBUTION WIDTH 17.8 % (11.7-14.4)
[2021-10-31 06:38] LABS: ALBUMIN 3.7 g/dL (3.5-5.0); ALBUMIN/GLOBULIN RATIO 1.1 (0.8-2.0); ANION GAP 11.4 mmol/L (8-16); CALCIUM 8.9 mg/dL (8.4-10.2); CREATININE, SERUM 1.44 mg/dL (0.72-1.25); POTASSIUM 3.4 mmol/L (3.5-5.1)
[2021-10-31] MEDS: FAMOTIDINE 20 MG TAB PO SCH ×2 (08:55→17:18)
[2021-10-31] MEDS: DEXAMETHASONE SOD PHOS 10 MG/1 ML VIAL IV SCH (08:55)
[2021-10-31] MEDS: FUROSEMIDE INJ 10 MG/ML 4 ML VIAL IV SCH ×2 (08:56→17:18)
[2021-10-31] MEDS: CEFTRIAXONE 2 GM in SODIUM CHLORIDE 0.9% 100 ML IV SCH (08:57)
[2021-10-31] MEDS: ISOSORBIDE MONONITRATE 30 MG TAB CR PO SCH (08:58)
[2021-10-31] MEDS: POTASSIUM CHLORIDE 10MEQ EA PO SCH ×2 (08:58→17:19)
[2021-10-31] MEDS: METOPROLOL TARTRATE 50 MG TAB PO SCH ×2 (08:59→17:19)
[2021-10-31] MEDS: LISINOPRIL 2.5 MG TAB PO SCH (08:59)
[2021-10-31] MEDS: ZINC SULFATE 50 MG CAP PO SCH (09:00)
[2021-10-31] MEDS: ASCORBIC ACID 500 MG TAB PO SCH ×2 (09:01→17:19)
[2021-10-31] MEDS: PANTOPRAZOLE SOD 40 MG TABEC PO SCH (09:01)
[2021-10-31] MEDS: SENNA-S TABLET PO SCH ×2 (09:01→17:19)
[2021-10-31] MEDS: TAMSULOSIN HCL 0.4 MG CAP PO SCH (17:18)
[2021-10-31] MEDS: RIVAROXABAN 20 MG TABLET PO SCH (17:19)
[2021-10-31] MEDS: ATORVASTATIN 10 MG TAB PO SCH (21:06)
[2021-10-31] MEDS: AZITHROMYCIN 250 MG TAB PO SCH (21:06)
[2021-11-01] VITALS (8 sets, daily range): BP systolic 109–153; BP diastolic 59–81
[2021-11-01] MEDS: LISINOPRIL 2.5 MG TAB PO SCH (08:40)
[2021-11-01] MEDS: METOPROLOL TARTRATE 50 MG TAB PO SCH ×2 (08:41→16:45)
[2021-11-01] MEDS: FAMOTIDINE 20 MG TAB PO SCH ×2 (08:42→16:22)
[2021-11-01] MEDS: SENNA-S TABLET PO SCH ×2 (08:42→16:22)
[2021-11-01] MEDS: ISOSORBIDE MONONITRATE 30 MG TAB CR PO SCH (08:42)
[2021-11-01] MEDS: PANTOPRAZOLE SOD 40 MG TABEC PO SCH (08:42)
[2021-11-01] MEDS: FUROSEMIDE INJ 10 MG/ML 4 ML VIAL IV SCH ×2 (08:42→16:22)
[2021-11-01] MEDS: DEXAMETHASONE SOD PHOS 10 MG/1 ML VIAL IV SCH (08:42)
[2021-11-01] MEDS: ZINC SULFATE 50 MG CAP PO SCH (08:45)
[2021-11-01] MEDS: ASCORBIC ACID 500 MG TAB PO SCH ×2 (08:45→16:22)
[2021-11-01] MEDS: POTASSIUM CHLORIDE 10MEQ EA PO SCH ×2 (08:46→16:22)
[2021-11-01] MEDS: TAMSULOSIN HCL 0.4 MG CAP PO SCH (16:22)
[2021-11-01] MEDS: RIVAROXABAN 20 MG TABLET PO SCH (16:22)
[2021-11-01] MEDS: ATORVASTATIN 10 MG TAB PO SCH (22:42)
[2021-11-01] MEDS: AZITHROMYCIN 250 MG TAB PO SCH (22:43)
[2021-11-02] VITALS: BP 134/65
[2021-11-02 04:00] VITALS: BP 134/58
[2021-11-02 07:59] VITALS: BP 137/72
[2021-11-02 08:00] VITALS: BP 137/72
[2021-11-02] MEDS: FAMOTIDINE 20 MG TAB PO SCH (08:00)
[2021-11-02] MEDS ORDERED: HYDROCODONE/APAP 7.5MG-325MG 1 EA TAB PO PRN (09:00)
[2021-11-02] MEDS: FUROSEMIDE INJ 10 MG/ML 4 ML VIAL IV SCH (09:02)
[2021-11-02] MEDS: ISOSORBIDE MONONITRATE 30 MG TAB CR PO SCH (09:02)
[2021-11-02] MEDS: POTASSIUM CHLORIDE 10MEQ EA PO SCH (09:02)
[2021-11-02] MEDS: METOPROLOL TARTRATE 50 MG TAB PO SCH (09:03)
[2021-11-02] MEDS: LISINOPRIL 2.5 MG TAB PO SCH (09:05)
[2021-11-02] MEDS: PANTOPRAZOLE SOD 40 MG TABEC PO SCH (09:05)
[2021-11-02] MEDS: ASCORBIC ACID 500 MG TAB PO SCH (09:05)
[2021-11-02] MEDS: ZINC SULFATE 50 MG CAP PO SCH (09:05)
[2021-11-02] MEDS: SENNA-S TABLET PO SCH (09:05)
[2021-11-02] MEDS ORDERED: PREDNISONE 10 MG TAB PO SCH (10:00)
[2021-11-02 10:58] VITALS: BP 93/50
[2021-11-02] MEDS ORDERED: LASIX40 MG PO (11:58)
[2021-11-02] MEDS ORDERED: PREDNISONE10 MG PO (11:59)
[2021-11-02] MEDS ORDERED: KLOR-CON 1010 MEQ PO (11:59)
[2021-11-02] MEDS ORDERED: PROAIR HFA INH8.5 GM INH (12:02)
== END 2021-11-02 12:42 | disposition home or self-care (01) | DRG 177 ==
LOC: ER 11:15 → ERHOLD 13:36 → MED/SURG3 14:19
PROVIDERS: ADMIT Internal Medicine; ATTEND Internal Medicine
PROC: 3E0333Z Introduction of Anti-inflammatory into Peripheral Vein, Percutaneous Approach (ICD-10-PCS; principal; 2021-10-27)
PROC: XW033E5 Introduction of Remdesivir Anti-infective into Peripheral Vein, Percutaneous Approach, New Technology Group 5 (ICD-10-PCS; 2021-10-27)
DX: U07.1 COVID-19 (principal); J12.82 Pneumonia due to coronavirus disease 2019; I50.33 Acute on chronic diastolic (congestive) heart failure; I13.0 Hypertensive heart and chronic kidney disease with heart failure and stage 1 through stage 4 chronic kidney disease, or unspecified chronic kidney disease; N18.4 Chronic kidney disease, stage 4 (severe); J44.0 Chronic obstructive pulmonary disease with (acute) lower respiratory infection; J44.1 Chronic obstructive pulmonary disease with (acute) exacerbation; J44.9 Chronic obstructive pulmonary disease, unspecified; K21.9 Gastro-esophageal reflux disease without esophagitis; M10.9 Gout, unspecified; Z95.1 Presence of aortocoronary bypass graft; Z95.810 Presence of automatic (implantable) cardiac defibrillator; Z87.891 Personal history of nicotine dependence; E66.9 Obesity, unspecified; I16.0 Hypertensive urgency; N40.1 Benign prostatic hyperplasia with lower urinary tract symptoms; R33.8 Other retention of urine; I73.9 Peripheral vascular disease, unspecified; E11.22 Type 2 diabetes mellitus with diabetic chronic kidney disease; I48.91 Unspecified atrial fibrillation; E78.5 Hyperlipidemia, unspecified; T50.1X6A Underdosing of loop [high-ceiling] diuretics, initial encounter; Z68.38 Body mass index [BMI] 38.0-38.9, adult; R09.02 Hypoxemia; D64.9 Anemia, unspecified
CPT/HCPCS: 36415; 71045; 71260; 74177; 80053; 82550; 82553; 83735; 83880; 84484; 85025; 85610; 85730; 93005; 93306; 94640; 94799; 97139; 99251; 99284; J0248; J0456; J0696; J1100; J1940; J7050; J7512; Q9967; U0002

== ENCOUNTER 2021-11-30 12:33 | Emergency (ER) | payer MEDICARE ==
[~2021-11-30] VITALS: Ht 175.3 cm; Wt 98.9 kg
[~2021-11-30 12:33] MED LIST changes: +ACETAMINOPHEN650 M1 PO; +KLOR-CON 1010 MEQ PO; +LASIX40 MG PO; +LISINOPRIL5 MG PO; +POTASSIUM CHLO20 ME1 PO; +PREDNISONE10 MG PO; +PROAIR HFA INH8.5 GM INH; +PROTONIX20 MG PO; +TRELEGY ELLIPT1 EACH INH
[2021-11-30 13:15] LABS: BASOPHILS % 0.5 % (0.0-1.0); EOSINOPHILS # (AUTO) 0.1 (0.0-0.4); EOSINOPHILS % 1.4 % (0.0-6.0); HEMATOCRIT 38.1 % (38.2-49.6); HEMOGLOBIN 11.6 g/dL (14.0-18.0); LYMPHOCYTES # (AUTO) 1.3 (1.0-3.2); LYMPHOCYTES % 29.1 % (18.0-39.1); MEAN CORPUSCULAR HEMOGLOBIN 24.7 pg (28-32); MEAN CORPUSCULAR HGB CONC 30.4 g/dL (31-35); MEAN CORPUSCULAR VOLUME 81.1 fL (81-99); MONOCYTES # (AUTO) 0.3 (0.2-0.8); MONOCYTES % 6.4 % (4.4-11.3); NEUTROPHILS # (AUTO) 2.7 (2.1-6.9); NEUTROPHILS % 62.4 % (38.7-80.0); PLATELET COUNT 169 x10e3/uL (140-360); RED CELL DISTRIBUTION WIDTH 17.1 % (11.7-14.4)
[2021-11-30] MEDS ORDERED: FUROSEMIDE INJ 10 MG/ML 4 ML VIAL IV SCH (13:30)
[2021-11-30 13:41] LABS: ALBUMIN 3.8 g/dL (3.5-5.0); ALBUMIN/GLOBULIN RATIO 1.1 (0.8-2.0); ANION GAP 13.3 mmol/L (8-16); CALCIUM 9.8 mg/dL (8.4-10.2); CREATININE, SERUM 1.27 mg/dL (0.72-1.25); POTASSIUM 4.3 mmol/L (3.5-5.1)
[2021-11-30] MEDS ORDERED: HYDRALAZINE HCL 20 MG/ML VIAL IV STA (13:59)
[2021-11-30 16:11] VITALS: BP 164/70
== END 2021-11-30 16:00 | disposition home or self-care (01) ==
LOC: ER 12:37
DX: R06.02 Shortness of breath (principal); I50.9 Heart failure, unspecified; J44.9 Chronic obstructive pulmonary disease, unspecified; K21.9 Gastro-esophageal reflux disease without esophagitis; M10.9 Gout, unspecified; Z20.822 Contact with and (suspected) exposure to COVID-19; Z95.1 Presence of aortocoronary bypass graft; Z95.810 Presence of automatic (implantable) cardiac defibrillator
CPT/HCPCS: 36415; 71045; 80053; 83880; 84484; 85025; 93005; 99284; J0360; J1940; U0002

== ENCOUNTER 2022-01-23 15:34 | Inpatient (IN) | payer MEDICARE ==
[~2022-01-23] VITALS: Ht 175.3 cm; Wt 104.3 kg
[2022-01-23 16:36] LABS: BASOPHILS % 0.3 % (0.0-1.0); HEMATOCRIT 39.7 % (38.2-49.6); HEMOGLOBIN 11.8 g/dL (14.0-18.0); LYMPHOCYTES # (AUTO) 1.4 (1.0-3.2); LYMPHOCYTES % 35.8 % (18.0-39.1); MEAN CORPUSCULAR HEMOGLOBIN 25.6 pg (28-32); MEAN CORPUSCULAR HGB CONC 29.7 g/dL (31-35); MEAN CORPUSCULAR VOLUME 86.1 fL (81-99); MONOCYTES # (AUTO) 0.4 (0.2-0.8); MONOCYTES % 9.5 % (4.4-11.3); NEUTROPHILS # (AUTO) 2.1 (2.1-6.9); NEUTROPHILS % 53.1 % (38.7-80.0); PLATELET COUNT 202 x10e3/uL (140-360); RED BLOOD COUNT 4.61 x10e6/uL (4.3-5.7); RED CELL DISTRIBUTION WIDTH 17.5 % (11.7-14.4)
[2022-01-23 16:52] LABS: INR 2.46; PARTIAL THROMBOPLASTIN TIME 39.2 seconds (23.8-35.5); PROTHROMBIN TIME 28.5 seconds (11.9-14.5)
[2022-01-23 17:00] LABS: BACTERIA,URINE FEW /HPF; CLARITY,URINE HAZY (CLEAR); COLOR,URINE YELLOW (YELLOW); EPITHELIAL CELLS,URINE FEW /LPF; KETONES,URINE NEGATIVE (NEGATIVE); LEUKOCYTE ESTERASE ,URINE NEGATIVE (NEGATIVE); NITRITE,URINE NEGATIVE (NEGATIVE); PROTEIN,URINE DIPSTICK NEGATIVE (NEGATIVE); RBC,URINE 0-5 /HPF (0-5); URINE UROBILINOGEN 0.2 mg/dL (0.2 - 1); WBC,URINE (MAN) 0-5 /HPF (0-5)
[2022-01-23 17:00] LABS: ALBUMIN 3.9 g/dL (3.5-5.0); ALBUMIN/GLOBULIN RATIO 1.1 (0.8-2.0); ANION GAP 14.7 mmol/L (8-16); CALCIUM 9.4 mg/dL (8.4-10.2); CREATININE, SERUM 1.41 mg/dL (0.72-1.25); POTASSIUM 3.7 mmol/L (3.5-5.1)
[2022-01-23] MEDS ORDERED: SODIUM CHLORIDE FLUSH 10 ML SYR INJ PRN (18:00)
[2022-01-23] MEDS ORDERED: ASPIRIN 81 MG CHEW TAB PO ONE (18:00)
[2022-01-23] MEDS: Morphine 4mg INJECTION 4 MG/ML INJ IV PRN (18:55)
[2022-01-23 19:59] VITALS: BP 182/63
[2022-01-23] MEDS: FUROSEMIDE INJ 10 MG/ML 4 ML VIAL IV SCH (20:26)
[2022-01-23 20:44] LABS: CREATINE KINASE 159 IU/L (30-200)
[2022-01-23 20:56] VITALS: BP 182/63
[2022-01-23 21:00] VITALS: BP 182/63
[2022-01-23] MEDS ORDERED: LORAZEPAM INJ 2 MG/ML VIAL IV STA (23:45)
[2022-01-23] MEDS ORDERED: FUROSEMIDE INJ 10 MG/ML 4 ML VIAL IV STA (23:45)
[2022-01-23] MEDS ORDERED: HYDRALAZINE HCL 20 MG/ML VIAL IV STA (23:45)
[2022-01-24] VITALS (25 sets, daily range): BP systolic 96–178; BP diastolic 49–124
[2022-01-24 00:04] LABS: BASOPHILS % 0.3 % (0.0-1.0); EOSINOPHILS % 0.7 % (0.0-6.0); HEMATOCRIT 38.4 % (38.2-49.6); HEMOGLOBIN 11.5 g/dL (14.0-18.0); LYMPHOCYTES # (AUTO) 1.2 (1.0-3.2); LYMPHOCYTES % 20.6 % (18.0-39.1); MEAN CORPUSCULAR HEMOGLOBIN 25.8 pg (28-32); MEAN CORPUSCULAR HGB CONC 29.9 g/dL (31-35); MEAN CORPUSCULAR VOLUME 86.3 fL (81-99); MONOCYTES # (AUTO) 0.4 (0.2-0.8); MONOCYTES % 7.2 % (4.4-11.3); NEUTROPHILS # (AUTO) 4.2 (2.1-6.9); NEUTROPHILS % 70.9 % (38.7-80.0); PLATELET COUNT 154 x10e3/uL (140-360); RED BLOOD COUNT 4.45 x10e6/uL (4.3-5.7); RED CELL DISTRIBUTION WIDTH 17.2 % (11.7-14.4)
[2022-01-24 00:21] LABS: ALANINE AMINOTRANSFERASE 9 IU/L (0-55); ALBUMIN 3.9 g/dL (3.5-5.0); ALBUMIN/GLOBULIN RATIO 1.1 (0.8-2.0); ALKALINE PHOSPHATASE 104 IU/L (40-150); BLOOD UREA NITROGEN 14 mg/dL (7-26); BUN/CREATININE RATIO 9 (6-25); CALCIUM 9.4 mg/dL (8.4-10.2); CARBON DIOXIDE 27 mmol/L (22-29); CREATINE KINASE 167 IU/L (30-200); CREATININE, SERUM 1.52 mg/dL (0.72-1.25); GLUCOSE 117 mg/dL (74-118)
[2022-01-24 00:24] LABS: ANION GAP 15.9 mmol/L (8-16); CHLORIDE 106 mmol/L (98-107); POTASSIUM 3.9 mmol/L (3.5-5.1); SODIUM 146 mmol/L (136-145)
[2022-01-24 00:38] LABS: ABG PH 7.42 (7.35-7.45)
[2022-01-24 00:39] LABS: ABG HCO3 26 mmol/L (22-26); ABG PCO2 40 mmHg (35-45); ABG PO2 131 mmHg (80-105); ABG TCO2 27
[2022-01-24] MEDS: Morphine 4mg INJECTION 4 MG/ML INJ IV PRN (01:38)
[2022-01-24] MEDS ORDERED: GUAIFENESIN/DEXTROMETHORPHAN LIQD 5 ML UDC PO PRN (02:15)
[2022-01-24] MEDS ORDERED: ALBUTEROL SULF 0.083% NEB SOLN 3 ML NEB NEB PRN ×2 (02:15→02:30)
[2022-01-24] MEDS ORDERED: HYDRALAZINE HCL 20 MG/ML VIAL IV PRN (02:15)
[2022-01-24] MEDS ORDERED: ACETAMINOPHEN 325 MG TAB PO PRN (02:15)
[2022-01-24] MEDS ORDERED: MELATONIN 3 MG TAB PO PRN (02:15)
[2022-01-24] MEDS ORDERED: ONDANSETRON HCL INJ 2MG/ML 2ML 2 MG/ML VIAL IV PRN (02:15)
[2022-01-24] MEDS: METHYLPREDNISOLONE SOD SUCC 40 MG/ML VIAL 1ML IV SCH ×3 (03:42→21:06)
[2022-01-24 06:02] LABS: BASOPHILS % 0.2 % (0.0-1.0); HEMATOCRIT 36.2 % (38.2-49.6); LYMPHOCYTES # (AUTO) 0.4 (1.0-3.2); MEAN CORPUSCULAR HEMOGLOBIN 26.1 pg (28-32); MEAN CORPUSCULAR HGB CONC 30.4 g/dL (31-35); MEAN CORPUSCULAR VOLUME 85.8 fL (81-99); MONOCYTES # (AUTO) 0.3 (0.2-0.8); MONOCYTES % 4.2 % (4.4-11.3); NEUTROPHILS # (AUTO) 5.5 (2.1-6.9); NEUTROPHILS % 88.4 % (38.7-80.0); PLATELET COUNT 154 x10e3/uL (140-360); RED BLOOD COUNT 4.22 x10e6/uL (4.3-5.7); RED CELL DISTRIBUTION WIDTH 17.2 % (11.7-14.4)
[2022-01-24 06:19] LABS: ALBUMIN 3.8 g/dL (3.5-5.0); ALBUMIN/GLOBULIN RATIO 1.3 (0.8-2.0); ANION GAP 15.8 mmol/L (8-16); CALCIUM 9.2 mg/dL (8.4-10.2); CREATININE, SERUM 1.43 mg/dL (0.72-1.25); POTASSIUM 3.8 mmol/L (3.5-5.1)
[2022-01-24 06:20] LABS: CREATINE KINASE MB 1.6 ng/mL (0-5.0)
[2022-01-24] MEDS: IPRATROPIUM BROMIDE 0.02% 2.5 ML NEB NEB SCH ×5 (07:00→23:30)
[2022-01-24] MEDS ORDERED: PANTOPRAZOLE SOD 40 MG TABEC PO SCH (07:30)
[2022-01-24] MEDS: FUROSEMIDE INJ 10 MG/ML 4 ML VIAL IV SCH ×2 (09:39→21:06)
[2022-01-24] MEDS: DOCUSATE SODIUM 100 MG CAP PO SCH ×2 (09:39→17:41)
[2022-01-24] MEDS: MULTIVITAMINS/MINERALS TAB PO SCH (09:40)
[2022-01-24] MEDS: GABAPENTIN 300 MG CAP PO SCH ×2 (09:40→17:44)
[2022-01-24] MEDS: METOPROLOL TARTRATE 25 MG TAB PO SCH ×2 (09:40→17:44)
[2022-01-24 11:48] LABS: CREATINE KINASE 179 IU/L (30-200)
[2022-01-24] MEDS: TAMSULOSIN HCL 0.4 MG CAP PO SCH (17:41)
[2022-01-24] MEDS: ATORVASTATIN 10 MG TAB PO SCH (21:06)
[2022-01-25] VITALS (16 sets, daily range): BP systolic 91–143; BP diastolic 41–73
[2022-01-25] MEDS: IPRATROPIUM BROMIDE 0.02% 2.5 ML NEB NEB SCH ×6 (02:40→23:00)
[2022-01-25 05:54] LABS: HEMATOCRIT 34.1 % (38.2-49.6); HEMOGLOBIN 10.1 g/dL (14.0-18.0); LYMPHOCYTES # (AUTO) 0.8 (1.0-3.2); LYMPHOCYTES % 11.9 % (18.0-39.1); MEAN CORPUSCULAR HEMOGLOBIN 25.6 pg (28-32); MEAN CORPUSCULAR HGB CONC 29.6 g/dL (31-35); MEAN CORPUSCULAR VOLUME 86.3 fL (81-99); MONOCYTES # (AUTO) 0.4 (0.2-0.8); MONOCYTES % 5.3 % (4.4-11.3); NEUTROPHILS # (AUTO) 5.4 (2.1-6.9); NEUTROPHILS % 82.5 % (38.7-80.0); PLATELET COUNT 165 x10e3/uL (140-360); RED BLOOD COUNT 3.95 x10e6/uL (4.3-5.7); RED CELL DISTRIBUTION WIDTH 17.2 % (11.7-14.4)
[2022-01-25 06:20] LABS: ALBUMIN 3.4 g/dL (3.5-5.0); ALBUMIN/GLOBULIN RATIO 1.1 (0.8-2.0); ANION GAP 13.9 mmol/L (8-16); CALCIUM 9.1 mg/dL (8.4-10.2); CREATININE, SERUM 1.38 mg/dL (0.72-1.25); MAGNESIUM 1.6 MG/DL (1.3-2.1); PHOSPHORUS 3.6 MG/DL (2.3-4.7); POTASSIUM 3.9 mmol/L (3.5-5.1)
[2022-01-25] MEDS: FUROSEMIDE INJ 10 MG/ML 4 ML VIAL IV SCH ×2 (09:02→21:00)
[2022-01-25] MEDS: DOCUSATE SODIUM 100 MG CAP PO SCH ×2 (09:02→17:07)
[2022-01-25] MEDS: MULTIVITAMINS/MINERALS TAB PO SCH (09:03)
[2022-01-25] MEDS: METOPROLOL TARTRATE 25 MG TAB PO SCH ×2 (09:03→17:07)
[2022-01-25] MEDS: GABAPENTIN 300 MG CAP PO SCH ×2 (09:03→17:07)
[2022-01-25] MEDS: TAMSULOSIN HCL 0.4 MG CAP PO SCH (17:07)
[2022-01-25] MEDS: ATORVASTATIN 10 MG TAB PO SCH (21:00)
[2022-01-26] VITALS (8 sets, daily range): BP systolic 102–127; BP diastolic 43–63
[2022-01-26] MEDS: IPRATROPIUM BROMIDE 0.02% 2.5 ML NEB NEB SCH ×6 (02:04→23:40)
[2022-01-26] MEDS: MULTIVITAMINS/MINERALS TAB PO SCH (08:57)
[2022-01-26] MEDS: DOCUSATE SODIUM 100 MG CAP PO SCH ×2 (08:57→16:18)
[2022-01-26] MEDS: GABAPENTIN 300 MG CAP PO SCH ×2 (08:57→16:18)
[2022-01-26] MEDS: METOPROLOL TARTRATE 25 MG TAB PO SCH ×2 (08:57→16:18)
[2022-01-26] MEDS: FUROSEMIDE INJ 10 MG/ML 4 ML VIAL IV SCH ×2 (08:57→20:57)
[2022-01-26] MEDS ORDERED: MAGNESIUM HYDROXIDE 30 ML UDC PO PRN (12:00)
[2022-01-26] MEDS: TAMSULOSIN HCL 0.4 MG CAP PO SCH (16:18)
[2022-01-26] MEDS: ATORVASTATIN 10 MG TAB PO SCH (20:57)
[2022-01-26] MEDS: AZITHROMYCIN 250 MG TAB PO SCH (20:57)
[2022-01-27] VITALS (9 sets, daily range): BP systolic 99–142; BP diastolic 45–67
[2022-01-27] MEDS: IPRATROPIUM BROMIDE 0.02% 2.5 ML NEB NEB SCH ×5 (04:13→23:36)
[2022-01-27] MEDS: Morphine 4mg INJECTION 4 MG/ML INJ IV PRN (04:46)
[2022-01-27] MEDS: FUROSEMIDE INJ 10 MG/ML 4 ML VIAL IV SCH ×2 (09:09→20:11)
[2022-01-27] MEDS: DOCUSATE SODIUM 100 MG CAP PO SCH ×2 (09:10→17:06)
[2022-01-27] MEDS: MULTIVITAMINS/MINERALS TAB PO SCH (09:11)
[2022-01-27] MEDS: METOPROLOL TARTRATE 25 MG TAB PO SCH ×2 (09:11→17:06)
[2022-01-27] MEDS: GABAPENTIN 300 MG CAP PO SCH ×2 (09:14→17:08)
[2022-01-27] MEDS: TAMSULOSIN HCL 0.4 MG CAP PO SCH (17:08)
[2022-01-27] MEDS: ATORVASTATIN 10 MG TAB PO SCH (20:11)
[2022-01-27] MEDS: AZITHROMYCIN 250 MG TAB PO SCH (20:11)
[2022-01-28] VITALS (7 sets, daily range): BP systolic 113–136; BP diastolic 57–68
[2022-01-28] MEDS: IPRATROPIUM BROMIDE 0.02% 2.5 ML NEB NEB SCH ×6 (03:00→23:00)
[2022-01-28 06:19] LABS: BASOPHILS % 0.4 % (0.0-1.0); EOSINOPHILS # (AUTO) 0.2 (0.0-0.4); EOSINOPHILS % 2.7 % (0.0-6.0); HEMATOCRIT 35.9 % (38.2-49.6); HEMOGLOBIN 10.6 g/dL (14.0-18.0); LYMPHOCYTES # (AUTO) 2.5 (1.0-3.2); LYMPHOCYTES % 44.2 % (18.0-39.1); MEAN CORPUSCULAR HEMOGLOBIN 25.7 pg (28-32); MEAN CORPUSCULAR HGB CONC 29.5 g/dL (31-35); MEAN CORPUSCULAR VOLUME 86.9 fL (81-99); MONOCYTES # (AUTO) 0.5 (0.2-0.8); NEUTROPHILS # (AUTO) 2.5 (2.1-6.9); NEUTROPHILS % 44.2 % (38.7-80.0); PLATELET COUNT 160 x10e3/uL (140-360); RED BLOOD COUNT 4.13 x10e6/uL (4.3-5.7)
[2022-01-28 06:34] LABS: ANION GAP 14.6 mmol/L (8-16); CALCIUM 8.8 mg/dL (8.4-10.2); CREATININE, SERUM 1.46 mg/dL (0.72-1.25); POTASSIUM 3.6 mmol/L (3.5-5.1)
[2022-01-28] MEDS: MULTIVITAMINS/MINERALS TAB PO SCH (10:01)
[2022-01-28] MEDS: DOCUSATE SODIUM 100 MG CAP PO SCH ×2 (10:01→16:49)
[2022-01-28] MEDS: GABAPENTIN 300 MG CAP PO SCH ×2 (10:01→16:50)
[2022-01-28] MEDS: FUROSEMIDE INJ 10 MG/ML 4 ML VIAL IV SCH ×2 (10:02→21:46)
[2022-01-28] MEDS: METOPROLOL TARTRATE 25 MG TAB PO SCH ×2 (10:02→16:50)
[2022-01-28] MEDS: TAMSULOSIN HCL 0.4 MG CAP PO SCH (16:51)
[2022-01-28] MEDS: ATORVASTATIN 10 MG TAB PO SCH (21:46)
[2022-01-28] MEDS: AZITHROMYCIN 250 MG TAB PO SCH (21:46)
[2022-01-29] VITALS: BP 126/60
[2022-01-29] MEDS: IPRATROPIUM BROMIDE 0.02% 2.5 ML NEB NEB SCH ×4 (03:00→15:00)
[2022-01-29 04:00] VITALS: BP 93/74
[2022-01-29 08:06] VITALS: BP 120/57
[2022-01-29 08:07] VITALS: BP 120/57
[2022-01-29] MEDS: FUROSEMIDE INJ 10 MG/ML 4 ML VIAL IV SCH (10:25)
[2022-01-29] MEDS: MULTIVITAMINS/MINERALS TAB PO SCH (10:28)
[2022-01-29] MEDS: DOCUSATE SODIUM 100 MG CAP PO SCH (10:28)
[2022-01-29] MEDS: METOPROLOL TARTRATE 25 MG TAB PO SCH (10:29)
[2022-01-29] MEDS: GABAPENTIN 300 MG CAP PO SCH (10:30)
[2022-01-29 11:45] VITALS: BP 120/58
== END 2022-01-29 15:21 | disposition home or self-care (01) | DRG 291 ==
LOC: ER 16:55 → ERHOLD 17:57 → MED/SURG 20:00 → ICU 01-24 00:09 → MED/SURG2 01-25 18:33
PROVIDERS: ADMIT Internal Medicine; ATTEND Internal Medicine
PROC: 5A09357 Assistance with Respiratory Ventilation, Less than 24 Consecutive Hours, Continuous Positive Airway Pressure (ICD-10-PCS; 2022-01-23)
PROC: 02HV33Z Insertion of Infusion Device into Superior Vena Cava, Percutaneous Approach (ICD-10-PCS; principal; 2022-01-24)
DX: I13.0 Hypertensive heart and chronic kidney disease with heart failure and stage 1 through stage 4 chronic kidney disease, or unspecified chronic kidney disease (principal); I50.33 Acute on chronic diastolic (congestive) heart failure; J96.01 Acute respiratory failure with hypoxia; G93.41 Metabolic encephalopathy; J44.1 Chronic obstructive pulmonary disease with (acute) exacerbation; I48.20 Chronic atrial fibrillation, unspecified; I16.0 Hypertensive urgency; K21.9 Gastro-esophageal reflux disease without esophagitis; E78.5 Hyperlipidemia, unspecified; E66.01 Morbid (severe) obesity due to excess calories; D63.1 Anemia in chronic kidney disease; I25.10 Atherosclerotic heart disease of native coronary artery without angina pectoris; R33.9 Retention of urine, unspecified; N40.1 Benign prostatic hyperplasia with lower urinary tract symptoms; N18.30 Chronic kidney disease, stage 3 unspecified; G47.33 Obstructive sleep apnea (adult) (pediatric); Z95.810 Presence of automatic (implantable) cardiac defibrillator; Z95.1 Presence of aortocoronary bypass graft; Z68.34 Body mass index [BMI] 34.0-34.9, adult; Z09 Encounter for follow-up examination after completed treatment for conditions other than malignant neoplasm; Z86.16 Personal history of COVID-19; Z87.891 Personal history of nicotine dependence; Z91.14 Patient's other noncompliance with medication regimen; R33.8 Other retention of urine; R39.14 Feeling of incomplete bladder emptying; K59.00 Constipation, unspecified; Z20.822 Contact with and (suspected) exposure to COVID-19
CPT/HCPCS: 36415; 36569; 71045; 80048; 80053; 81001; 82550; 82553; 82805; 83605; 83735; 83880; 84100; 84484; 85025; 85610; 85730; 87040; 87086; 93005; 93306; 94640; 94660; 94799; 97139; 99251; 99284; J0360; J0456; J1940; J2060; J2270; J2920; J7050

== ENCOUNTER 2022-06-08 12:00 | Inpatient (IN) | payer MEDICARE ==
[2022-06-04 13:53] LABS: BASOPHILS % 0.7 % (0.0-1.0); EOSINOPHILS # (AUTO) 0.1 (0.0-0.4); EOSINOPHILS % 1.9 % (0.0-6.0); HEMATOCRIT 42.6 % (38.2-49.6); HEMOGLOBIN 12.4 g/dL (14.0-18.0); LYMPHOCYTES # (AUTO) 1.9 (1.0-3.2); LYMPHOCYTES % 43.9 % (18.0-39.1); MEAN CORPUSCULAR HEMOGLOBIN 24.9 pg (28-32); MEAN CORPUSCULAR HGB CONC 29.1 g/dL (31-35); MEAN CORPUSCULAR VOLUME 85.5 fL (81-99); MONOCYTES # (AUTO) 0.4 (0.2-0.8); MONOCYTES % 8.7 % (4.4-11.3); NEUTROPHILS # (AUTO) 1.9 (2.1-6.9); NEUTROPHILS % 44.8 % (38.7-80.0); PLATELET COUNT 212 x10e3/uL (140-360); RED BLOOD COUNT 4.98 x10e6/uL (4.3-5.7)
[2022-06-04 14:12] LABS: ALBUMIN/GLOBULIN RATIO 1.1 (0.8-2.0); ANION GAP 14.2 mmol/L (8-16); CALCIUM 9.3 mg/dL (8.4-10.2); CREATININE, SERUM 1.85 mg/dL (0.72-1.25); POTASSIUM 4.2 mmol/L (3.5-5.1)
[2022-06-08] VITALS (11 sets, daily range): BP systolic 78–136; BP diastolic 47–97
[~2022-06-08] VITALS: Ht 175.3 cm; Wt 106.1 kg
[2022-06-08] MEDS ORDERED: ZOLPIDEM TARTRATE 5 MG TAB PO PRN (14:30)
[2022-06-08] MEDS ORDERED: ALBUTEROL SULFATE HFA 8GM INHALATION AEROSOL INH PRN (14:30)
[2022-06-08] MEDS ORDERED: HEPARIN SOD (PORCINE) 1000 UNIT/ML 30ML ONE (14:41)
[2022-06-08] MEDS ORDERED: VERAPAMIL HCL 2.5 MG/ML 2 ML VIAL ONE (14:41)
[2022-06-08] MEDS ORDERED: MIDAZOLAM HCL 2 MG/2 ML VIAL ONE (14:42)
[2022-06-08] MEDS ORDERED: HEPARIN SOD/SOD CHLORIDE 2,000 ML ONE (14:42)
[2022-06-08] MEDS ORDERED: FENTANYL CITRATE/PF 100MCG/2 ML INJ ONE (14:42)
[2022-06-08] MEDS ORDERED: IOPAMIDOL 370 MG/ML 100 ML INFUS..BTL INJ ONE (14:42)
[2022-06-08] MEDS ORDERED: SODIUM CHLORIDE 0.9% 1000ML 1,000 ML ONE (14:43)
[2022-06-08] MEDS ORDERED: LIDOCAINE 1% 10 ML MULTIDOSE VIAL IJ ONE (14:43)
[2022-06-08] MEDS: GABAPENTIN 300 MG CAP PO SCH (21:54)
[2022-06-08] MEDS: FUROSEMIDE 40 MG TAB PO SCH (21:54)
[2022-06-08] MEDS: METOPROLOL TARTRATE 50 MG TAB PO SCH (21:55)
[2022-06-08] MEDS: ATORVASTATIN 10 MG TAB PO SCH (21:58)
[2022-06-08] MEDS: TAMSULOSIN HCL 0.4 MG CAP PO SCH (21:58)
[2022-06-09] VITALS (11 sets, daily range): BP systolic 102–137; BP diastolic 43–68
[2022-06-09 07:25] LABS: BASOPHILS % 0.4 % (0.0-1.0); EOSINOPHILS # (AUTO) 0.1 (0.0-0.4); EOSINOPHILS % 2.2 % (0.0-6.0); HEMATOCRIT 38.8 % (38.2-49.6); HEMOGLOBIN 11.4 g/dL (14.0-18.0); LYMPHOCYTES # (AUTO) 1.6 (1.0-3.2); LYMPHOCYTES % 33.8 % (18.0-39.1); MEAN CORPUSCULAR HEMOGLOBIN 24.8 pg (28-32); MEAN CORPUSCULAR HGB CONC 29.4 g/dL (31-35); MEAN CORPUSCULAR VOLUME 84.5 fL (81-99); MONOCYTES # (AUTO) 0.5 (0.2-0.8); MONOCYTES % 9.8 % (4.4-11.3); NEUTROPHILS # (AUTO) 2.5 (2.1-6.9); NEUTROPHILS % 53.6 % (38.7-80.0); PLATELET COUNT 187 x10e3/uL (140-360); RED BLOOD COUNT 4.59 x10e6/uL (4.3-5.7)
[2022-06-09 07:51] LABS: ANION GAP 13.8 mmol/L (8-16); CREATININE, SERUM 1.6 mg/dL (0.72-1.25); POTASSIUM 3.8 mmol/L (3.5-5.1)
[2022-06-09] MEDS: METOPROLOL TARTRATE 50 MG TAB PO SCH ×2 (09:00→18:06)
[2022-06-09] MEDS: RIVAROXABAN 20 MG TABLET PO SCH ×2 (10:04→11:24)
[2022-06-09] MEDS: GABAPENTIN 300 MG CAP PO SCH ×2 (10:04→18:06)
[2022-06-09] MEDS: POTASSIUM CHLORIDE 20 MEQ TAB CR PO SCH (10:04)
[2022-06-09] MEDS: PANTOPRAZOLE SOD 40 MG TABEC PO SCH (10:04)
[2022-06-09] MEDS: FUROSEMIDE 40 MG TAB PO SCH (10:12)
[2022-06-09] MEDS: TAMSULOSIN HCL 0.4 MG CAP PO SCH (18:07)
[2022-06-09] MEDS: FUROSEMIDE INJ 10 MG/ML 4 ML VIAL IV SCH (18:41)
[2022-06-09] MEDS: ATORVASTATIN 10 MG TAB PO SCH (21:58)
[2022-06-10] VITALS (8 sets, daily range): BP systolic 101–132; BP diastolic 51–72
[2022-06-10] MEDS: FUROSEMIDE INJ 10 MG/ML 4 ML VIAL IV SCH ×2 (08:57→18:43)
[2022-06-10] MEDS: PANTOPRAZOLE SOD 40 MG TABEC PO SCH (09:00)
[2022-06-10] MEDS: METOPROLOL TARTRATE 50 MG TAB PO SCH ×2 (09:00→18:12)
[2022-06-10] MEDS: GABAPENTIN 300 MG CAP PO SCH ×2 (09:00→18:12)
[2022-06-10] MEDS: POTASSIUM CHLORIDE 20 MEQ TAB CR PO SCH (09:00)
[2022-06-10] MEDS ORDERED: PSEUDOEPHEDRINE HCL 30 MG TAB PO PRN (11:00)
[2022-06-10 11:15] LABS: ANION GAP 15.6 mmol/L (8-16); CALCIUM 9.3 mg/dL (8.4-10.2); CREATININE, SERUM 1.65 mg/dL (0.72-1.25); POTASSIUM 3.6 mmol/L (3.5-5.1)
[2022-06-10] MEDS ORDERED: HEPARIN SOD (PORCINE) 1000 UNIT/ML 30ML ONE (13:34)
[2022-06-10] MEDS ORDERED: NITROGLYCERIN/D5W 200 MCG/ML 250 ML ONE (13:35)
[2022-06-10] MEDS ORDERED: SODIUM CHLORIDE 0.9% 1000ML 1,000 ML ONE (13:35)
[2022-06-10] MEDS ORDERED: HEPARIN SOD/SOD CHLORIDE 2,000 ML ONE (13:35)
[2022-06-10] MEDS ORDERED: VERAPAMIL HCL 2.5 MG/ML 2 ML VIAL ONE (13:35)
[2022-06-10] MEDS ORDERED: MIDAZOLAM HCL 2 MG/2 ML VIAL ONE (13:36)
[2022-06-10] MEDS ORDERED: LIDOCAINE HCL 2% LOCAL INJ 5 ML SDV VIAL INJ ONE (13:36)
[2022-06-10] MEDS ORDERED: FENTANYL CITRATE/PF 100MCG/2 ML INJ ONE (13:36)
[2022-06-10] MEDS ORDERED: BIVALRIUDIN 250 MG/VIAL VIAL IV ONE (14:00)
[2022-06-10] MEDS ORDERED: ATROPINE SULFATE 0.1 MG/ML 10ML SYR ONE (14:16)
[2022-06-10] MEDS ORDERED: CLOPIDOGREL BISULFATE 75 MG TAB ONE (14:39)
[2022-06-10] MEDS: TAMSULOSIN HCL 0.4 MG CAP PO SCH (18:12)
[2022-06-10] MEDS: ATORVASTATIN 10 MG TAB PO SCH (21:32)
[2022-06-10] MEDS: Morphine 2mg Syringe 2 MG/ML SYR IV PRN (21:35)
[2022-06-11] VITALS (8 sets, daily range): BP systolic 105–135; BP diastolic 55–88
[2022-06-11] MEDS: GABAPENTIN 300 MG CAP PO SCH ×2 (08:24→16:53)
[2022-06-11] MEDS: FUROSEMIDE INJ 10 MG/ML 4 ML VIAL IV SCH ×2 (08:24→16:50)
[2022-06-11] MEDS: ASPIRIN 81 MG ENTERIC COATED PO SCH (08:24)
[2022-06-11] MEDS: PANTOPRAZOLE SOD 40 MG TABEC PO SCH (08:24)
[2022-06-11] MEDS: CLOPIDOGREL BISULFATE 75 MG TAB PO SCH (08:24)
[2022-06-11] MEDS: METOPROLOL TARTRATE 50 MG TAB PO SCH ×2 (08:24→16:53)
[2022-06-11] MEDS: POTASSIUM CHLORIDE 20 MEQ TAB CR PO SCH (08:25)
[2022-06-11 10:54] LABS: ANION GAP 16.8 mmol/L (8-16); CALCIUM 9.4 mg/dL (8.4-10.2); CREATININE, SERUM 1.56 mg/dL (0.72-1.25); POTASSIUM 3.8 mmol/L (3.5-5.1)
[2022-06-11] MEDS: Morphine 2mg Syringe 2 MG/ML SYR IV PRN ×2 (16:12→20:49)
[2022-06-11] MEDS: TAMSULOSIN HCL 0.4 MG CAP PO SCH (16:50)
[2022-06-11] MEDS: RIVAROXABAN 20 MG TABLET PO SCH (16:51)
[2022-06-11] MEDS: ATORVASTATIN 10 MG TAB PO SCH (20:48)
[2022-06-12] VITALS (8 sets, daily range): BP systolic 101–119; BP diastolic 49–57
[2022-06-12] MEDS: Morphine 2mg Syringe 2 MG/ML SYR IV PRN (10:09)
[2022-06-12] MEDS: FUROSEMIDE INJ 10 MG/ML 4 ML VIAL IV SCH ×2 (10:10→17:11)
[2022-06-12] MEDS: PANTOPRAZOLE SOD 40 MG TABEC PO SCH (10:10)
[2022-06-12] MEDS: POTASSIUM CHLORIDE 20 MEQ TAB CR PO SCH (10:11)
[2022-06-12] MEDS: GABAPENTIN 300 MG CAP PO SCH ×2 (10:11→17:12)
[2022-06-12] MEDS: METOPROLOL TARTRATE 50 MG TAB PO SCH ×2 (10:11→17:12)
[2022-06-12] MEDS: ASPIRIN 81 MG ENTERIC COATED PO SCH (10:12)
[2022-06-12] MEDS: CLOPIDOGREL BISULFATE 75 MG TAB PO SCH (10:12)
[2022-06-12] MEDS: HYDROCODONE/APAP 5MG-325MG TAB PO PRN ×2 (14:37→20:42)
[2022-06-12] MEDS: TAMSULOSIN HCL 0.4 MG CAP PO SCH (17:11)
[2022-06-12] MEDS: RIVAROXABAN 20 MG TABLET PO SCH (17:11)
[2022-06-12] MEDS: ATORVASTATIN 10 MG TAB PO SCH (20:42)
[2022-06-13] VITALS (7 sets, daily range): BP systolic 101–137; BP diastolic 52–76
[2022-06-13] MEDS: CLOPIDOGREL BISULFATE 75 MG TAB PO SCH (10:14)
[2022-06-13] MEDS: FUROSEMIDE INJ 10 MG/ML 4 ML VIAL IV SCH ×2 (10:15→16:41)
[2022-06-13] MEDS: GABAPENTIN 300 MG CAP PO SCH ×2 (10:15→16:39)
[2022-06-13] MEDS: POTASSIUM CHLORIDE 20 MEQ TAB CR PO SCH (10:15)
[2022-06-13] MEDS: METOPROLOL TARTRATE 50 MG TAB PO SCH ×2 (10:16→16:40)
[2022-06-13] MEDS: ASPIRIN 81 MG ENTERIC COATED PO SCH (10:16)
[2022-06-13] MEDS: PANTOPRAZOLE SOD 40 MG TABEC PO SCH (10:16)
[2022-06-13] MEDS: HYDROCODONE/APAP 5MG-325MG TAB PO PRN ×2 (10:23→23:50)
[2022-06-13] MEDS: RIVAROXABAN 20 MG TABLET PO SCH (16:39)
[2022-06-13] MEDS: TAMSULOSIN HCL 0.4 MG CAP PO SCH (16:40)
[2022-06-13] MEDS: ATORVASTATIN 10 MG TAB PO SCH (21:00)
[2022-06-14] VITALS (8 sets, daily range): BP systolic 110–142; BP diastolic 51–74
[2022-06-14] MEDS: ASPIRIN 81 MG ENTERIC COATED PO SCH (08:23)
[2022-06-14] MEDS: FUROSEMIDE INJ 10 MG/ML 4 ML VIAL IV SCH ×2 (08:23→17:16)
[2022-06-14] MEDS: POTASSIUM CHLORIDE 20 MEQ TAB CR PO SCH (08:24)
[2022-06-14] MEDS: METOPROLOL TARTRATE 50 MG TAB PO SCH ×2 (08:24→17:16)
[2022-06-14] MEDS: GABAPENTIN 300 MG CAP PO SCH ×2 (08:25→17:16)
[2022-06-14] MEDS: PANTOPRAZOLE SOD 40 MG TABEC PO SCH (08:25)
[2022-06-14] MEDS: CLOPIDOGREL BISULFATE 75 MG TAB PO SCH (08:27)
[2022-06-14] MEDS: RIVAROXABAN 20 MG TABLET PO SCH (17:16)
[2022-06-14] MEDS: TAMSULOSIN HCL 0.4 MG CAP PO SCH (17:16)
[2022-06-14] MEDS: HYDROCODONE/APAP 5MG-325MG TAB PO PRN ×2 (17:25→23:30)
[2022-06-14] MEDS: ATORVASTATIN 10 MG TAB PO SCH (21:50)
[2022-06-15] VITALS: BP 122/62
[2022-06-15 04:00] VITALS: BP 131/60
[2022-06-15 05:27] LABS: CALCIUM 9.1 mg/dL (8.4-10.2); CREATININE, SERUM 1.45 mg/dL (0.72-1.25)
[2022-06-15] MEDS: HYDROCODONE/APAP 5MG-325MG TAB PO PRN (05:30)
[2022-06-15 09:23] VITALS: BP 105/76
[2022-06-15] MEDS: ASPIRIN 81 MG ENTERIC COATED PO SCH (09:58)
[2022-06-15] MEDS: GABAPENTIN 300 MG CAP PO SCH (09:58)
[2022-06-15] MEDS: FUROSEMIDE INJ 10 MG/ML 4 ML VIAL IV SCH (09:58)
[2022-06-15] MEDS: CLOPIDOGREL BISULFATE 75 MG TAB PO SCH (09:58)
[2022-06-15] MEDS: METOPROLOL TARTRATE 50 MG TAB PO SCH (09:59)
[2022-06-15] MEDS: POTASSIUM CHLORIDE 20 MEQ TAB CR PO SCH (09:59)
[2022-06-15] MEDS: PANTOPRAZOLE SOD 40 MG TABEC PO SCH (09:59)
[2022-06-15 13:31] VITALS: BP 159/79
[2022-06-15] MEDS ORDERED: PLAVIX75 MG PO ×2 (16:21→16:23)
[2022-06-15 17:03] VITALS: BP 142/54
== END 2022-06-15 17:16 | disposition home or self-care (01) | DRG 246 ==
LOC: CATH LAB 12:00 → MED/SURG 18:50
PROVIDERS: ADMIT Internal Medicine Interventional Cardiology; ATTEND Internal Medicine Interventional Cardiology
PROC: 4A023N7 Measurement of Cardiac Sampling and Pressure, Left Heart, Percutaneous Approach (ICD-10-PCS; principal; 2022-06-09)
PROC: B2111ZZ Fluoroscopy of Multiple Coronary Arteries using Low Osmolar Contrast (ICD-10-PCS; 2022-06-09)
PROC: B2151ZZ Fluoroscopy of Left Heart using Low Osmolar Contrast (ICD-10-PCS; 2022-06-09)
PROC: 027035Z Dilation of Coronary Artery, One Artery with Two Drug-eluting Intraluminal Devices, Percutaneous Approach (ICD-10-PCS; 2022-06-10)
DX: I11.0 Hypertensive heart disease with heart failure (principal); I50.23 Acute on chronic systolic (congestive) heart failure; I49.5 Sick sinus syndrome; I48.91 Unspecified atrial fibrillation; I73.9 Peripheral vascular disease, unspecified; I25.119 Atherosclerotic heart disease of native coronary artery with unspecified angina pectoris; Z20.822 Contact with and (suspected) exposure to COVID-19; Z95.1 Presence of aortocoronary bypass graft; Z95.0 Presence of cardiac pacemaker; E78.5 Hyperlipidemia, unspecified; J34.89 Other specified disorders of nose and nasal sinuses
CPT/HCPCS: 0223U; 36415; 71045; 80048; 80053; 82948; 83880; 85025; 92928; 93005; 93454; 93458; 94799; 99152; 99153; 99251; C1725; C1874; C1887; C1894; J0583; J1644; J1940; J2001; J2250; J2270; J3010; J7030; Q9967

== ENCOUNTER → 2022-07-23 | Day surgery (SDC) | payer MEDICARE ==
[2022-07-21 10:26] LABS: BASOPHILS % 0.5 % (0.0-1.0); EOSINOPHILS # (AUTO) 0.1 (0.0-0.4); EOSINOPHILS % 1.3 % (0.0-6.0); HEMATOCRIT 37.1 % (38.2-49.6); HEMOGLOBIN 11.5 g/dL (14.0-18.0); LYMPHOCYTES # (AUTO) 1.4 (1.0-3.2); LYMPHOCYTES % 36.3 % (18.0-39.1); MEAN CORPUSCULAR VOLUME 80.7 fL (81-99); MONOCYTES # (AUTO) 0.3 (0.2-0.8); MONOCYTES % 8.5 % (4.4-11.3); NEUTROPHILS % 53.1 % (38.7-80.0); PLATELET COUNT 205 x10e3/uL (140-360); RED CELL DISTRIBUTION WIDTH 16.4 % (11.7-14.4)
[2022-07-21 10:27] LABS: INR 1.43; PROTHROMBIN TIME 17.6 seconds (11.9-14.5)
[2022-07-21 10:36] LABS: CALCIUM 9.1 mg/dL (8.4-10.2); CREATININE, SERUM 1.77 mg/dL (0.72-1.25)
[2022-07-23] VITALS (9 sets, daily range): BP systolic 102–134; BP diastolic 56–72
[~2022-07-23] VITALS: Ht 172.7 cm; Wt 106.1 kg
[~2022-07-23] MED LIST changes: +ALBUTEROL2.5 MG/0.5 NEB; +ARNUITY ELLIP100 MCG PO; +CARAFATE1 GM/10 ML PO; +CEFAZOLIN SODIUM 0 GM ONE; +ENTRESTO 24 MG1 EACH PO; +FENTANYL CITRATE/PF 100MCG/2 ML INJ ONE; +GENTAMICIN SULFATE 40 MG/ML 2 ML VIAL ONE; +LIDOCAINE HCL 2% LOCAL INJ 5 ML SDV VIAL INJ ONE; +MIDAZOLAM HCL 2 MG/2 ML VIAL ONE; +SODIUM CHLORIDE 0.9% 1000ML 1,000 ML ONE; +SODIUM CHLORIDE 0.9% 1000ML 3,000 ML ONE; +SODIUM CHLORIDE 0.9% 250ML 250 ML ONE; +TORSEMIDE20 MG PO; +Vancomycin IV 1 GM VIAL ONE
== END | disposition home or self-care (01) ==
LOC: CATH LAB 11:16 → EDSTATUS 13:00
PROVIDERS: ATTEND Internal Medicine
DX: I11.0 Hypertensive heart disease with heart failure (principal); I50.42 Chronic combined systolic (congestive) and diastolic (congestive) heart failure; I49.5 Sick sinus syndrome; I48.19 Other persistent atrial fibrillation; Z01.812 Encounter for preprocedural laboratory examination; Z79.02 Long term (current) use of antithrombotics/antiplatelets; Z79.899 Other long term (current) drug therapy; Z95.0 Presence of cardiac pacemaker
CPT/HCPCS: 33214; 33225; 36415; 71045; 80048; 85025; 85610; C1769 ×2; C1900; C2621; J1580; J2001; J2250; J3010; J3370; J7030; J7050; 33206; 33224; 33229; 33233; 99152; 99153

== ENCOUNTER 2022-08-19 00:52 | Emergency (ER) | payer MEDICARE ==
[~2022-08-19] VITALS: Ht 175.3 cm; Wt 106.6 kg
[~2022-08-19 00:52] MED LIST changes: -ALBUTEROL2.5 MG/0.5 NEB; -ARNUITY ELLIP100 MCG PO; -CARAFATE1 GM/10 ML PO; -CEFAZOLIN SODIUM 0 GM ONE; -ENTRESTO 24 MG1 EACH PO; -FENTANYL CITRATE/PF 100MCG/2 ML INJ ONE; -GENTAMICIN SULFATE 40 MG/ML 2 ML VIAL ONE; -LIDOCAINE HCL 2% LOCAL INJ 5 ML SDV VIAL INJ ONE; -MIDAZOLAM HCL 2 MG/2 ML VIAL ONE; -SODIUM CHLORIDE 0.9% 1000ML 1,000 ML ONE; -SODIUM CHLORIDE 0.9% 1000ML 3,000 ML ONE; -SODIUM CHLORIDE 0.9% 250ML 250 ML ONE; -TORSEMIDE20 MG PO; -Vancomycin IV 1 GM VIAL ONE
[2022-08-19 01:15] LABS: BASOPHILS % 0.4 % (0.0-1.0); EOSINOPHILS % 0.5 % (0.0-6.0); HEMATOCRIT 38.1 % (38.2-49.6); LYMPHOCYTES # (AUTO) 1.6 (1.0-3.2); MEAN CORPUSCULAR HEMOGLOBIN 24.8 pg (28-32); MEAN CORPUSCULAR HGB CONC 28.9 g/dL (31-35); MONOCYTES # (AUTO) 0.6 (0.2-0.8); MONOCYTES % 10.7 % (4.4-11.3); NEUTROPHILS # (AUTO) 3.4 (2.1-6.9); NEUTROPHILS % 60.2 % (38.7-80.0); PLATELET COUNT 195 x10e3/uL (140-360); RED BLOOD COUNT 4.43 x10e6/uL (4.3-5.7)
[2022-08-19 01:34] LABS: ALBUMIN/GLOBULIN RATIO 1.1 (0.8-2.0); ANION GAP 17.5 mmol/L (8-16); CALCIUM 9.6 mg/dL (8.4-10.2); CREATININE, SERUM 1.47 mg/dL (0.72-1.25); POTASSIUM 3.5 mmol/L (3.5-5.1)
[2022-08-19 01:40] LABS: CREATINE KINASE MB 1.4 ng/mL (0-5.0)
[2022-08-19] MEDS ORDERED: IOPAMIDOL 370 MG/ML 100 ML INFUS..BTL INJ ONE (01:59)
[2022-08-19 04:23] VITALS: BP 131/49
== END 2022-08-19 05:08 | disposition home or self-care (01) ==
LOC: ER 00:59
DX: R07.9 Chest pain, unspecified (principal); R94.4 Abnormal results of kidney function studies; I50.9 Heart failure, unspecified; I48.91 Unspecified atrial fibrillation; J44.9 Chronic obstructive pulmonary disease, unspecified; M10.9 Gout, unspecified; K21.9 Gastro-esophageal reflux disease without esophagitis; Z20.822 Contact with and (suspected) exposure to COVID-19; Z95.810 Presence of automatic (implantable) cardiac defibrillator; Z95.1 Presence of aortocoronary bypass graft
CPT/HCPCS: 36415; 71260; 80053; 82550; 82553; 83690; 83880; 84484; 85025; 85379; 93005; 99284; Q9967; U0002

== ENCOUNTER 2022-09-06 09:54 | Observation (INO) | payer MEDICARE ==
[~2022-09-06] VITALS: Ht 175.3 cm; Wt 106.6 kg
[2022-09-06 11:30] LABS: BASOPHILS % 0.4 % (0.0-1.0); EOSINOPHILS % 0.6 % (0.0-6.0); HEMATOCRIT 38.8 % (38.2-49.6); HEMOGLOBIN 11.1 g/dL (14.0-18.0); LYMPHOCYTES # (AUTO) 1.4 (1.0-3.2); MEAN CORPUSCULAR HEMOGLOBIN 24.3 pg (28-32); MEAN CORPUSCULAR HGB CONC 28.6 g/dL (31-35); MEAN CORPUSCULAR VOLUME 85.1 fL (81-99); MONOCYTES # (AUTO) 0.5 (0.2-0.8); MONOCYTES % 8.8 % (4.4-11.3); NEUTROPHILS # (AUTO) 3.2 (2.1-6.9); PLATELET COUNT 218 x10e3/uL (140-360); RED BLOOD COUNT 4.56 x10e6/uL (4.3-5.7); RED CELL DISTRIBUTION WIDTH 15.5 % (11.7-14.4)
[2022-09-06] MEDS ORDERED: FUROSEMIDE INJ 10 MG/ML 4 ML VIAL IV ONE (12:00)
[2022-09-06 12:18] LABS: ALBUMIN 3.9 g/dL (3.5-5.0); ALBUMIN/GLOBULIN RATIO 1.1 (0.8-2.0); CALCIUM 9.9 mg/dL (8.4-10.2); CREATININE, SERUM 1.28 mg/dL (0.72-1.25); MAGNESIUM 1.7 MG/DL (1.3-2.1)
[2022-09-06 12:21] LABS: INR 1.34; PROTHROMBIN TIME 16.8 seconds (11.9-14.5)
[2022-09-06 12:22] LABS: PARTIAL THROMBOPLASTIN TIME 35.3 seconds (23.8-35.5)
[2022-09-06 12:25] LABS: CREATINE KINASE MB 1.3 ng/mL (0-5.0)
[2022-09-06 12:36] LABS: CLARITY,URINE CLEAR (CLEAR); COLOR,URINE YELLOW (YELLOW)
[2022-09-06 12:37] LABS: KETONES,URINE NEGATIVE (NEGATIVE); LEUKOCYTE ESTERASE ,URINE NEGATIVE (NEGATIVE); NITRITE,URINE NEGATIVE (NEGATIVE); PROTEIN,URINE DIPSTICK 1+ (NEGATIVE); URINE UROBILINOGEN 1 mg/dL (0.2 - 1)
[2022-09-06 12:44] LABS: BACTERIA,URINE FEW /HPF; EPITHELIAL CELLS,URINE FEW /LPF; WBC,URINE (MAN) 0-5 /HPF (0-5)
[2022-09-06] MEDS: FUROSEMIDE INJ 10 MG/ML 4 ML VIAL IV SCH (17:12)
[2022-09-06] MEDS ORDERED: ALBUTEROL2.5 MG/0.5 NEB (17:19)
[2022-09-06] MEDS ORDERED: CARAFATE1 GM/10 ML PO (17:21)
[2022-09-06] MEDS ORDERED: ENTRESTO 24 MG1 EACH PO (17:21)
[2022-09-06] MEDS ORDERED: ARNUITY ELLIP100 MCG PO (17:21)
[2022-09-06] MEDS ORDERED: ASPIRIN325 MG PO (17:21)
[2022-09-06] MEDS ORDERED: TORSEMIDE20 MG PO (17:22)
[2022-09-06 17:27] VITALS: BP 171/63
[2022-09-06 18:17] VITALS: BP 171/63
[2022-09-06 18:52] LABS: CREATINE KINASE MB 1.6 ng/mL (0-5.0)
[2022-09-06 20:00] VITALS: BP 146/65
[2022-09-06 21:00] VITALS: BP 146/65
[2022-09-06] MEDS ORDERED: ALBUTEROL SULF 0.083% NEB SOLN 3 ML NEB NEB PRN (23:30)
[2022-09-06] MEDS ORDERED: ACETAMINOPHEN 325 MG TAB PO PRN (23:30)
[2022-09-07] VITALS: BP 156/50
[2022-09-07 07:30] VITALS: BP 173/74
[2022-09-07] MEDS ORDERED: SUCRALFATE 1 GM/10 ML SUSP PO SCH (07:30)
[2022-09-07 07:33] LABS: BASOPHILS % 0.5 % (0.0-1.0); EOSINOPHILS % 0.7 % (0.0-6.0); HEMATOCRIT 39.7 % (38.2-49.6); HEMOGLOBIN 11.4 g/dL (14.0-18.0); LYMPHOCYTES # (AUTO) 1.3 (1.0-3.2); LYMPHOCYTES % 22.1 % (18.0-39.1); MEAN CORPUSCULAR HEMOGLOBIN 24.3 pg (28-32); MEAN CORPUSCULAR HGB CONC 28.7 g/dL (31-35); MEAN CORPUSCULAR VOLUME 84.5 fL (81-99); MONOCYTES # (AUTO) 0.5 (0.2-0.8); NEUTROPHILS # (AUTO) 3.8 (2.1-6.9); NEUTROPHILS % 67.5 % (38.7-80.0); PLATELET COUNT 215 x10e3/uL (140-360); RED CELL DISTRIBUTION WIDTH 15.3 % (11.7-14.4)
[2022-09-07 08:03] VITALS: BP 170/73
[2022-09-07 08:11] LABS: ALBUMIN 3.8 g/dL (3.5-5.0); ANION GAP 15.5 mmol/L (8-16); CREATININE, SERUM 1.15 mg/dL (0.72-1.25); POTASSIUM 3.5 mmol/L (3.5-5.1)
[2022-09-07] MEDS: FUROSEMIDE INJ 10 MG/ML 4 ML VIAL IV SCH (08:14)
[2022-09-07 08:19] LABS: CREATINE KINASE MB 1.6 ng/mL (0-5.0)
[2022-09-07] MEDS ORDERED: POTASSIUM CHLORIDE 20 MEQ TAB CR PO SCH (09:00)
[2022-09-07] MEDS ORDERED: GABAPENTIN 300 MG CAP PO SCH (09:00)
[2022-09-07] MEDS ORDERED: CLOPIDOGREL BISULFATE 75 MG TAB PO SCH (09:00)
[2022-09-07] MEDS ORDERED: PANTOPRAZOLE SOD 40 MG TABEC PO SCH (09:00)
[2022-09-07] MEDS ORDERED: RIVAROXABAN 20 MG TABLET PO SCH (09:00)
[2022-09-07] MEDS ORDERED: ASPIRIN 325 MG TAB PO SCH (09:00)
[2022-09-07] MEDS ORDERED: TAMSULOSIN HCL 0.4 MG CAP PO SCH (17:00)
[2022-09-07] MEDS ORDERED: ATORVASTATIN 10 MG TAB PO SCH (21:00)
== END 2022-09-07 10:48 | disposition home or self-care (01) ==
LOC: ER 10:19 → ERHOLD 12:27 → MED/SURG2 16:22
PROVIDERS: ADMIT Internal Medicine; ATTEND Internal Medicine
DX: I11.0 Hypertensive heart disease with heart failure (principal); Z95.810 Presence of automatic (implantable) cardiac defibrillator; I25.10 Atherosclerotic heart disease of native coronary artery without angina pectoris; Z95.1 Presence of aortocoronary bypass graft; N40.0 Benign prostatic hyperplasia without lower urinary tract symptoms; I48.91 Unspecified atrial fibrillation; Z79.01 Long term (current) use of anticoagulants; M10.9 Gout, unspecified; M19.90 Unspecified osteoarthritis, unspecified site; R60.0 Localized edema; I50.9 Heart failure, unspecified; Z20.822 Contact with and (suspected) exposure to COVID-19
CPT/HCPCS: 36415 ×2; 71045; 80053 ×2; 81001; 82550 ×2; 82553 ×2; 83735; 83880; 84484 ×2; 85025 ×2; 85610; 85730; 87086; 87186; 93005; 94760; 94799; 99284; G0378 ×2; J1940 ×2; S0164; U0002

== ENCOUNTER 2022-09-22 12:18 | Emergency (ER) | payer MEDICARE ==
[~2022-09-22] VITALS: Ht 327.7 cm; Wt 106.6 kg
[~2022-09-22 12:18] MED LIST changes: +ALBUTEROL2.5 MG/0.5 NEB; +ARNUITY ELLIP100 MCG PO; +CARAFATE1 GM/10 ML PO; +ENTRESTO 24 MG1 EACH PO; +TORSEMIDE20 MG PO
[2022-09-22] MEDS ORDERED: SODIUM CHLORIDE FLUSH 10 ML SYR IV PRN (12:45)
[2022-09-22] MEDS ORDERED: KETOROLAC TROMETHAMINE 30 MG/ML VIAL IV ONE (13:30)
[2022-09-22 14:21] LABS: BASOPHILS % 0.4 % (0.0-1.0); HEMATOCRIT 40.5 % (38.2-49.6); HEMOGLOBIN 11.9 g/dL (14.0-18.0); LYMPHOCYTES # (AUTO) 1.7 (1.0-3.2); LYMPHOCYTES % 20.1 % (18.0-39.1); MEAN CORPUSCULAR HEMOGLOBIN 24.4 pg (28-32); MEAN CORPUSCULAR HGB CONC 29.4 g/dL (31-35); MEAN CORPUSCULAR VOLUME 83.2 fL (81-99); MONOCYTES # (AUTO) 1.3 (0.2-0.8); MONOCYTES % 15.2 % (4.4-11.3); NEUTROPHILS # (AUTO) 5.3 (2.1-6.9); NEUTROPHILS % 63.8 % (38.7-80.0); PLATELET COUNT 214 x10e3/uL (140-360); RED BLOOD COUNT 4.87 x10e6/uL (4.3-5.7); RED CELL DISTRIBUTION WIDTH 15.9 % (11.7-14.4)
[2022-09-22 14:30] LABS: CLARITY,URINE CLEAR (CLEAR); COLOR,URINE YELLOW (YELLOW); KETONES,URINE NEGATIVE (NEGATIVE); LEUKOCYTE ESTERASE ,URINE NEGATIVE (NEGATIVE); NITRITE,URINE NEGATIVE (NEGATIVE); PROTEIN,URINE DIPSTICK 1+ (NEGATIVE); URINE UROBILINOGEN 0.2 mg/dL (0.2 - 1)
[2022-09-22 14:36] LABS: INR 1.85; PROTHROMBIN TIME 21.5 seconds (11.9-14.5)
[2022-09-22 14:41] LABS: BACTERIA,URINE FEW /HPF; EPITHELIAL CELLS,URINE FEW /LPF; WBC,URINE (MAN) 0-5 /HPF (0-5)
[2022-09-22 14:43] LABS: ALBUMIN 3.7 g/dL (3.5-5.0); ALBUMIN/GLOBULIN RATIO 0.9 (0.8-2.0); CALCIUM 9.9 mg/dL (8.4-10.2); CREATININE, SERUM 1.19 mg/dL (0.72-1.25)
[2022-09-22] MEDS ORDERED: POTASSIUM CHLORIDE 20 MEQ TAB CR PO STA (15:45)
[2022-09-22] MEDS ORDERED: ENOXAPARIN SODIUM INJ 100 MG/ML SYR SC ONE (16:45)
[2022-09-22 18:07] VITALS: BP 142/58
== END 2022-09-22 19:04 | disposition other institution (70) ==
LOC: ER 12:42
DX: M79.661 Pain in right lower leg (principal); I74.3 Embolism and thrombosis of arteries of the lower extremities; M79.641 Pain in right hand; M10.9 Gout, unspecified; R60.9 Edema, unspecified; I10 Essential (primary) hypertension; J44.9 Chronic obstructive pulmonary disease, unspecified; I50.9 Heart failure, unspecified; I25.10 Atherosclerotic heart disease of native coronary artery without angina pectoris; K21.9 Gastro-esophageal reflux disease without esophagitis; Z95.810 Presence of automatic (implantable) cardiac defibrillator; Z95.1 Presence of aortocoronary bypass graft
CPT/HCPCS: 0223U; 36415; 70450; 71045; 73060; 73090; 73130; 80053; 81001; 84484; 84550; 85025; 85610; 85730; 93926; 93931; 93971 ×2; 99284

== ENCOUNTER 2022-10-06 07:11 | Emergency (ER) | payer MEDICARE ==
[~2022-10-06] VITALS: Ht 327.7 cm; Wt 106.6 kg
[2022-10-06 07:46] LABS: BASOPHILS % 0.5 % (0.0-1.0); EOSINOPHILS # (AUTO) 0.1 (0.0-0.4); EOSINOPHILS % 0.8 % (0.0-6.0); HEMOGLOBIN 11.8 g/dL (14.0-18.0); LYMPHOCYTES # (AUTO) 1.6 (1.0-3.2); LYMPHOCYTES % 24.7 % (18.0-39.1); MEAN CORPUSCULAR HEMOGLOBIN 23.9 pg (28-32); MEAN CORPUSCULAR HGB CONC 29.5 g/dL (31-35); MEAN CORPUSCULAR VOLUME 81.1 fL (81-99); MONOCYTES # (AUTO) 0.6 (0.2-0.8); MONOCYTES % 8.9 % (4.4-11.3); NEUTROPHILS # (AUTO) 4.1 (2.1-6.9); NEUTROPHILS % 64.9 % (38.7-80.0); PLATELET COUNT 314 x10e3/uL (140-360); RED BLOOD COUNT 4.93 x10e6/uL (4.3-5.7); RED CELL DISTRIBUTION WIDTH 15.8 % (11.7-14.4)
[2022-10-06 08:05] LABS: ALBUMIN 3.8 g/dL (3.5-5.0); ANION GAP 18.9 mmol/L (8-16); CALCIUM 9.6 mg/dL (8.4-10.2); CREATININE, SERUM 1.41 mg/dL (0.72-1.25); POTASSIUM 3.9 mmol/L (3.5-5.1)
[2022-10-06 08:46] VITALS: BP 131/42
== END 2022-10-06 10:24 | disposition home or self-care (01) ==
LOC: ER 07:20
DX: R06.00 Dyspnea, unspecified (principal); J44.9 Chronic obstructive pulmonary disease, unspecified; I10 Essential (primary) hypertension; R53.83 Other fatigue; I50.9 Heart failure, unspecified; I48.91 Unspecified atrial fibrillation; I25.10 Atherosclerotic heart disease of native coronary artery without angina pectoris; K21.9 Gastro-esophageal reflux disease without esophagitis; M10.9 Gout, unspecified; Z20.822 Contact with and (suspected) exposure to COVID-19; Z95.810 Presence of automatic (implantable) cardiac defibrillator; Z95.1 Presence of aortocoronary bypass graft
CPT/HCPCS: 36415; 71045; 80053; 83880; 84484; 85025; 93005; 99284; U0002

== ENCOUNTER 2024-08-08 14:20 | Emergency (ER) | payer MEDICARE ==
[~2024-08-08] VITALS: Ht 180.3 cm; Wt 98.9 kg
[~2024-08-08 14:20] MED LIST changes: +REGLAN10 MG PO
[2024-08-08 14:29] VITALS: TEMP 98.4
[2024-08-08 15:24] LABS: BASOPHILS % 0.6 % (0.0-1.0); EOSINOPHILS % 0.9 % (0.0-6.0); HEMATOCRIT 41.5 % (38.2-49.6); HEMOGLOBIN 12.9 g/dL (14.0-18.0); LYMPHOCYTES # (AUTO) 1.3 (1.0-3.2); LYMPHOCYTES % 37.5 % (18.0-39.1); MEAN CORPUSCULAR HEMOGLOBIN 28.6 pg (28-32); MEAN CORPUSCULAR HGB CONC 31.1 g/dL (31-35); MONOCYTES # (AUTO) 0.5 (0.2-0.8); MONOCYTES % 12.8 % (4.4-11.3); NEUTROPHILS # (AUTO) 1.7 (2.1-6.9); NEUTROPHILS % 47.9 % (38.7-80.0); PLATELET COUNT 173 x10e3/uL (140-360); RED BLOOD COUNT 4.51 x10e6/uL (4.3-5.7); RED CELL DISTRIBUTION WIDTH 13.8 % (11.7-14.4); WHITE BLOOD COUNT 3.52 x10e3/uL (4.8-10.8)
[2024-08-08 15:40] LABS: INFLUENZA A AG NEGATIVE (NEGATIVE); INR 2.22; PROTHROMBIN TIME 25.7 seconds (11.9-14.5)
[2024-08-08 15:41] LABS: CORONAVIRUS COVID-19 AG NEGATIVE (NEGATIVE); INFLUENZA B AG NEGATIVE (NEGATIVE); PARTIAL THROMBOPLASTIN TIME 32.4 seconds (23.8-35.5)
[2024-08-08 15:48] LABS: ALBUMIN 4.2 g/dL (3.5-5.0); ALBUMIN/GLOBULIN RATIO 1.5 (0.8-2.0); ANION GAP 14.9 mmol/L (8-16); BILIRUBIN,TOTAL 1.4 mg/dL (0.2-1.2); CALCIUM 9.5 mg/dL (8.4-10.2); CREATININE, SERUM 1.35 mg/dL (0.72-1.25); MAGNESIUM 1.6 MG/DL (1.3-2.1)
[2024-08-08 15:50] LABS: POTASSIUM 2.9 mmol/L (3.5-5.1)
[2024-08-08 15:53] LABS: TROPONIN I 0.023 ng/mL (0-0.300)
[2024-08-08] MEDS ORDERED: BELLADONNA ALK/PHENOBARBITAL 5 ML UDC ONE (16:21)
[2024-08-08] MEDS ORDERED: MAGNESIUM/ALUMINUM/SIMETHICONE 30 ML UDC ONE (16:21)
[2024-08-08] MEDS: BELLADONNA ALK/PHENOBARBITAL 5 ML UDC PO ONE (16:24)
[2024-08-08] MEDS: POTASSIUM CHLORIDE 20 MEQ TAB CR PO STA (16:26)
[2024-08-08] MEDS: HYDROCODONE/APAP 5MG-325MG TAB PO ONE (16:26)
[2024-08-08] MEDS: MAGNESIUM/ALUMINUM/SIMETHICONE 30 ML UDC PO ONE (16:29)
[2024-08-08] MEDS: LIDOCAINE VISC 2% SOLN 15 ML UDC PO ONE (16:29)
[2024-08-08] MEDS: METHYLPREDNISOLONE SOD SUCC 125 MG/2ML VIAL IV STA (16:44)
[2024-08-08 16:45] VITALS: PULSE 61; RESP 18
[2024-08-08 16:50] VITALS: PULSE 60; RESP 16; O2SAT 100
[2024-08-08] MEDS: ALBUTEROL/IPRATROPIUM 3 ML NEB NEB ONE (16:50)
[2024-08-08 18:08] VITALS: BP 170/66; PULSE 60; RESP 16; TEMP 98.2; O2SAT 100
== END 2024-08-08 18:10 | disposition home or self-care (01) ==
LOC: ER 14:50
DX: R06.00 Dyspnea, unspecified (principal); R07.89 Other chest pain; J44.9 Chronic obstructive pulmonary disease, unspecified; E87.6 Hypokalemia; I50.9 Heart failure, unspecified; Z11.52 Encounter for screening for COVID-19; R94.31 Abnormal electrocardiogram [ECG] [EKG]
CPT/HCPCS: 36415; 71045; 80053; 82550; 83735; 83880; 84484; 85025; 85610; 85730; 87428; 93005; 94640; 94799; 99284; J2919

== ENCOUNTER 2024-10-21 18:42 | Emergency (ER) | payer MEDICARE ==
[~2024-10-21] VITALS: Ht 180.3 cm; Wt 91.6 kg
[2024-10-21 19:00] VITALS: TEMP 97.6
[2024-10-21] MEDS ORDERED: SODIUM CHLORIDE FLUSH 10 ML SYR IV PRN (19:00)
[2024-10-21 19:17] LABS: BASOPHILS % 0.7 % (0.0-1.0); EOSINOPHILS # (AUTO) 0.1 (0.0-0.4); EOSINOPHILS % 2.2 % (0.0-6.0); HEMATOCRIT 40.4 % (38.2-49.6); HEMOGLOBIN 12.6 g/dL (14.0-18.0); LYMPHOCYTES # (AUTO) 1.8 (1.0-3.2); LYMPHOCYTES % 45.6 % (18.0-39.1); MEAN CORPUSCULAR HEMOGLOBIN 28.4 pg (28-32); MEAN CORPUSCULAR HGB CONC 31.2 g/dL (31-35); MEAN CORPUSCULAR VOLUME 91.2 fL (81-99); MONOCYTES # (AUTO) 0.4 (0.2-0.8); NEUTROPHILS # (AUTO) 1.6 (2.1-6.9); NEUTROPHILS % 40.3 % (38.7-80.0); PLATELET COUNT 210 x10e3/uL (140-360); RED BLOOD COUNT 4.43 x10e6/uL (4.3-5.7); RED CELL DISTRIBUTION WIDTH 13.5 % (11.7-14.4); WHITE BLOOD COUNT 4.01 x10e3/uL (4.8-10.8)
[2024-10-21 19:41] LABS: ALBUMIN 3.8 g/dL (3.5-5.0); ALBUMIN/GLOBULIN RATIO 1.4 (0.8-2.0); ANION GAP 13.1 mmol/L (8-16); BILIRUBIN,TOTAL 0.9 mg/dL (0.2-1.2); CALCIUM 9.5 mg/dL (8.4-10.2); CREATININE, SERUM 1.36 mg/dL (0.72-1.25); POTASSIUM 4.1 mmol/L (3.5-5.1); TOTAL PROTEIN 6.6 g/dL (6.5-8.1)
[2024-10-21] MEDS ORDERED: IOPAMIDOL 370 MG/ML 100 ML INFUS..BTL INJ ONE (19:46)
[2024-10-21 19:48] LABS: TROPONIN I 0.002 ng/mL (0-0.300)
[2024-10-21] MEDS: SODIUM CHLORIDE 0.9% 500ML 500 ML IV ONE (19:57)
[2024-10-21 20:12] LABS: CORONAVIRUS COVID-19 AG NEGATIVE (NEGATIVE); INFLUENZA A AG NEGATIVE (NEGATIVE); INFLUENZA B AG NEGATIVE (NEGATIVE)
[2024-10-21 22:15] VITALS: RESP 18
[2024-10-21 23:15] VITALS: PULSE 60; O2SAT 99
== END 2024-10-22 00:45 | disposition home or self-care (01) ==
LOC: ER 18:54
DX: R06.02 Shortness of breath (principal); E86.1 Hypovolemia; R05.9 Cough, unspecified; I10 Essential (primary) hypertension; J44.9 Chronic obstructive pulmonary disease, unspecified; I50.9 Heart failure, unspecified; J45.909 Unspecified asthma, uncomplicated; I25.10 Atherosclerotic heart disease of native coronary artery without angina pectoris; K21.9 Gastro-esophageal reflux disease without esophagitis; M10.9 Gout, unspecified; Z11.52 Encounter for screening for COVID-19; Z95.1 Presence of aortocoronary bypass graft; Z95.810 Presence of automatic (implantable) cardiac defibrillator
CPT/HCPCS: 36415; 71045; 74177; 80053; 83880; 84484; 85025; 87428; 93005; 94760; 99284; J7040; Q9967

== ENCOUNTER 2024-11-16 11:18 | Emergency (ER) | payer MEDICARE ==
[~2024-11-16] VITALS: Ht 180.3 cm; Wt 91.6 kg
[2024-11-16 11:31] VITALS: TEMP 97.8
[2024-11-16 13:57] VITALS: PULSE 60; RESP 18
[2024-11-16 15:00] LABS: BASOPHILS % 0.7 % (0.0-1.0); EOSINOPHILS # (AUTO) 0.1 (0.0-0.4); EOSINOPHILS % 1.3 % (0.0-6.0); HEMATOCRIT 39.3 % (38.2-49.6); HEMOGLOBIN 12.6 g/dL (14.0-18.0); LYMPHOCYTES # (AUTO) 1.9 (1.0-3.2); LYMPHOCYTES % 41.6 % (18.0-39.1); MEAN CORPUSCULAR HEMOGLOBIN 28.1 pg (28-32); MEAN CORPUSCULAR HGB CONC 32.1 g/dL (31-35); MEAN CORPUSCULAR VOLUME 87.7 fL (81-99); MONOCYTES # (AUTO) 0.4 (0.2-0.8); MONOCYTES % 8.6 % (4.4-11.3); NEUTROPHILS # (AUTO) 2.1 (2.1-6.9); NEUTROPHILS % 47.4 % (38.7-80.0); PLATELET COUNT 218 x10e3/uL (140-360); RED BLOOD COUNT 4.48 x10e6/uL (4.3-5.7); RED CELL DISTRIBUTION WIDTH 14.6 % (11.7-14.4); WHITE BLOOD COUNT 4.52 x10e3/uL (4.8-10.8)
[2024-11-16 15:26] LABS: ALBUMIN 4.1 g/dL (3.5-5.0); ALBUMIN/GLOBULIN RATIO 1.4 (0.8-2.0); ANION GAP 18.5 mmol/L (8-16); BILIRUBIN,TOTAL 1.2 mg/dL (0.2-1.2); CREATININE, SERUM 1.65 mg/dL (0.72-1.25); POTASSIUM 4.5 mmol/L (3.5-5.1)
[2024-11-16 15:32] LABS: CLARITY,URINE SL CLOUDY (CLEAR); COLOR,URINE YELLOW (YELLOW); LEUKOCYTE ESTERASE ,URINE TRACE (NEGATIVE); PH,URINE 6 (5 - 7)
[2024-11-16 15:33] LABS: BILIRUBIN,URINE NEGATIVE (NEGATIVE); GLUCOSE, URINE NEGATIVE (NEGATIVE); KETONES,URINE NEGATIVE (NEGATIVE); NITRITE,URINE NEGATIVE (NEGATIVE); PROTEIN,URINE DIPSTICK NEGATIVE (NEGATIVE); URINE UROBILINOGEN 0.2 mg/dL (0.2 - 1)
[2024-11-16 15:46] LABS: BACTERIA,URINE MANY /HPF; HYALINE CASTS 0-1 (0-1); WBC,URINE (MAN) 21-50 /HPF (0-5)
[2024-11-16 15:47] LABS: AMORPHOUS SEDIMENT,URINE MANY; EPITHELIAL CELLS,URINE MANY /LPF
[2024-11-16 16:46] VITALS: BP 149/89; PULSE 89; RESP 18; TEMP 97.9; O2SAT 100
== END 2024-11-16 16:47 | disposition home or self-care (01) ==
LOC: ER 13:35
DX: R06.02 Shortness of breath (principal); N39.0 Urinary tract infection, site not specified; I10 Essential (primary) hypertension; J44.9 Chronic obstructive pulmonary disease, unspecified; I50.9 Heart failure, unspecified; I48.91 Unspecified atrial fibrillation; I25.10 Atherosclerotic heart disease of native coronary artery without angina pectoris; K21.9 Gastro-esophageal reflux disease without esophagitis; J45.909 Unspecified asthma, uncomplicated; I73.9 Peripheral vascular disease, unspecified; M10.9 Gout, unspecified; I25.2 Old myocardial infarction; Z95.1 Presence of aortocoronary bypass graft; Z95.810 Presence of automatic (implantable) cardiac defibrillator
CPT/HCPCS: 36415; 71045; 80053; 81001; 84484; 85025; 87086; 93005; 99284

== ENCOUNTER 2025-04-24 15:31 | Emergency (ER) | payer MEDICARE ==
[~2025-04-24] VITALS: Ht 180.3 cm; Wt 91.6 kg
[2025-04-24 16:51] LABS: BASOPHILS % 0.5 % (0.0-1.0); EOSINOPHILS % 2.9 % (0.0-6.0); LYMPHOCYTES % 47.6 % (18.0-39.1); MONOCYTES % 9.4 % (4.4-11.3); NEUTROPHILS % 39.6 % (38.7-80.0); RED CELL DISTRIBUTION WIDTH 14.6 % (11.7-14.4)
[2025-04-24 17:15] LABS: EST GLOMERULAR FILTRATION RATE 52 ML/MIN (>=60)
[2025-04-24] MEDS: MAGNESIUM/ALUMINUM/SIMETHICONE 30 ML UDC PO ONE (18:19)
[2025-04-24] MEDS: LIDOCAINE VISC 2% SOLN 15 ML UDC PO ONE (18:19)
[2025-04-24] MEDS: BELLADONNA ALK/PHENOBARBITAL 5 ML UDC PO STA (18:19)
[2025-04-24] MEDS: BELLADONNA ALK/PHENOBARBITAL 5 ML UDC PO ONE (19:17)
[2025-04-24] MEDS: LIDOCAINE VISC 2% SOLN 15 ML UDC PO STA (19:17)
[2025-04-24] MEDS: MAGNESIUM/ALUMINUM/SIMETHICONE 30 ML UDC PO STA (19:17)
[2025-04-24 21:10] VITALS: PULSE 60; RESP 18; TEMP 97.9; O2SAT 100
== END 2025-04-24 21:15 | disposition home or self-care (01) ==
LOC: ER 15:36
DX: R10.9 Unspecified abdominal pain (principal); I10 Essential (primary) hypertension; I25.10 Atherosclerotic heart disease of native coronary artery without angina pectoris; J44.9 Chronic obstructive pulmonary disease, unspecified; I48.91 Unspecified atrial fibrillation; I50.9 Heart failure, unspecified; K21.9 Gastro-esophageal reflux disease without esophagitis; I73.9 Peripheral vascular disease, unspecified; M10.9 Gout, unspecified; I25.2 Old myocardial infarction; Z95.1 Presence of aortocoronary bypass graft; Z95.810 Presence of automatic (implantable) cardiac defibrillator
CPT/HCPCS: 36415; 71045; 74176; 80053; 83690; 84484; 85025; 93005; 99284; J2470

== ENCOUNTER 2025-05-11 10:39 | Emergency (ER) | payer MEDICARE ==
[~2025-05-11] VITALS: Ht 180.3 cm; Wt 91.6 kg
[2025-05-11 11:00] VITALS: PULSE 67; RESP 18; TEMP 98.9
[2025-05-11 11:53] LABS: BASOPHILS % 0.5 % (0.0-1.0); EOSINOPHILS % 1.9 % (0.0-6.0); LYMPHOCYTES % 32.8 % (18.0-39.1); MONOCYTES % 8.4 % (4.4-11.3); NEUTROPHILS % 56.2 % (38.7-80.0); RED CELL DISTRIBUTION WIDTH 14.4 % (11.7-14.4)
[2025-05-11 12:12] LABS: INR 1.66
[2025-05-11 12:23] LABS: EST GLOMERULAR FILTRATION RATE 51.0 ML/MIN (>=60)
[2025-05-11] MEDS: DONNATAL/LIDOCAINE/MAALOX 30 ML SUSP PO ONE (12:39)
[2025-05-11] MEDS: SODIUM CHLORIDE 0.9% 500ML 500 ML IV ONE (12:39)
[2025-05-11] MEDS: Morphine 2mg Syringe 2 MG/ML SYR IV STA (15:08)
[2025-05-11] MEDS: ONDANSETRON HCL INJ 2MG/ML 2ML 2 MG/ML VIAL IV STA (15:09)
[2025-05-11 15:42] VITALS: BP 142/84; PULSE 78; RESP 18; TEMP 98.6; O2SAT 98
== END 2025-05-11 15:10 | disposition home or self-care (01) ==
LOC: ER 10:45
DX: R07.89 Other chest pain (principal); K29.70 Gastritis, unspecified, without bleeding; K21.9 Gastro-esophageal reflux disease without esophagitis; R10.31 Right lower quadrant pain; I10 Essential (primary) hypertension; J44.9 Chronic obstructive pulmonary disease, unspecified; I50.9 Heart failure, unspecified; I48.91 Unspecified atrial fibrillation; J45.909 Unspecified asthma, uncomplicated; R94.31 Abnormal electrocardiogram [ECG] [EKG]; I25.2 Old myocardial infarction; Z95.1 Presence of aortocoronary bypass graft; Z95.810 Presence of automatic (implantable) cardiac defibrillator
CPT/HCPCS: 36415; 71045; 80053; 83690; 83735; 84484; 85025; 85610; 85730; 93005; 99284; J2270; J2405; J2470; J7040